=== PATIENT | female | born 1955 | race Caucasian/White ===

== ENCOUNTER 2021-07-28 08:35 | Emergency (ER) | payer MEDICARE, MEDICAID, SELFPAY ==
[2021-07-28 08:50] VITALS: BP 119/84; PULSE 94; RESP 18; TEMP 36.7; O2SAT 98
--- NOTE | 2021-07-28 08:59 | HMH.EDGENADL ---
ED Disposition Clinical Impression: COVID-19 virus infection Disposition: Home, Self-Care Condition on Discharge: Fair Instructions: DI for COVID-19 (Suspected or Confirmed ) Additional Instructions: Monoclonal antibody therapy order has been placed. You will be called to schedule an appointment time. Tylenol for pain or fever. [id number] cough medication. Rest and drink plenty of fluids. COVID-19 Isolation: Isolate yourself for a MINIMUM of 10 days from onset of symptoms: What to do: Monitor your symptoms. If you have an emergency warning sign (including trouble breathing), seek emergency medical care immediately. Stay in a separate room from other household members, if possible. Use a separate bathroom, if possible. Avoid contact with other members of the household and pets. Don?t share personal household items, like cups, towels, and utensils. Wear a mask when around other people if able. You can be around others AFTER: 10 days since symptoms first appeared AND 24 hours with no fever without the use of fever-reducing medications AND Other symptoms of COVID-19 are improving Referrals: Mikki Kraus [Primary Care Provider] - - Critical Care Critical Care Time: No Attestation: On , the high probability of a clinically significant, sudden or life threatening deterioration of the following system(s) required my full and direct attention, intervention and personal management. The time I documented below is in addition to time spent performing reported procedures but includes the following listed in this critical care notation. Medical Decision Making - Ayad Inquiry Pt receiving controlled substance: No Vital Signs: 07/28/21 08:50 Temperature 98.1 F Temperature Source Oral Pulse Rate [Right Radial] 94 H Respiratory Rate 18 Blood Pressure [Right Arm] 119/84 Blood Pressure Mean [Right Arm] 95 Blood Pressure Source [Right Arm] Automatic Cuff Blood Pressure Position [Right Arm] Sitting 02 Sat by Pulse Oximetry 98 Oxygen Delivery Method Room Air - Lab Data Lab Results 07/28/21 08:40: SARS-CoV-2 (PCR) Detected A, Influenza A Untype (PCR) Not detected, Influenza Type B (PCR) Not detected Orders (Tests/Meds): ORDERS Category Date Time Status Chest XR 2 view (NOT portable) [XR chest 2V] Stat Exams 07/28/21 09:07 Taken - Radiology Data #1 Image(s): Chest Image Reviewed: Yes I reviewed the patient's radiology image Preliminary Findings: Abnormal (Haziness right base) General Adult HPI - General Stated complaint: covid, treated for symptoms Time Seen by Provider: 07/28/21 08:59 - History of Present Illness HPI narrative: States she has felt ill since Friday 6 days ago. She has weakness, body aches, cough, congestion, nausea. She called her primary care doctor earlier in the week and was called in an antibiotic and a Medrol Dosepak. She did a home Covid test last night and it was positive. A relative who is a nurse told her she should come in and see if our test is positive as well. She has a history of hypertension and hyperlipidemia, allergies and depression. She is a non-smoker and does not have COPD. - Related Data Allergies Allergy/AdvReac Type Severity Reaction Status Date / Time Sulfa (Sulfonamide Allergy Verified 07/28/21 08:58 Antibiotics) [facility] History - Hepatitis A Screen Attestation statement:: This patient has been screened for Hepatitis A risk factors. I have reviewed the patient's past medical history: Yes ROS Obtained: Yes Systems reviewed as appropriate & no additional complaints - Constitutional Constitutional: Reports fatigue, Denies fever(s) - Cardiovascular Cardiovascular: Denies chest pain - Respiratory Respiratory: Reports chest congestion, Reports cough, Denies dyspnea - Gastrointestinal Gastrointestingal: Reports: nausea. Denies: abdominal pain Physical Exam - General General appearan
[2021-07-28 09:06] LABS: Influenza A, PCR Not Detected (NotDetected); Influenza B, PCR Not Detected (NotDetected)
--- NOTE | 2021-07-28 09:07 | XR_ITS ---
PROCEDURE INFORMATION: Exam: XR Chest Exam date and time: 07/28/2021 9:07 AM Age: 66 years old Clinical indication: Cough; Additional info: Possible covid TECHNIQUE: Imaging protocol: XR of the chest. Views: 2 views. COMPARISON: No relevant prior exams. FINDINGS: Lungs: Unremarkable. No consolidation. Pleural spaces: Unremarkable. No pleural effusion. No pneumothorax. Heart/Mediastinum: Unremarkable. No cardiomegaly. Bones/joints: Unremarkable. IMPRESSION: No acute cardiopulmonary disease.
[2021-07-28 09:28] LABS: Coronavirus 19, PCR Detected (NotDetected)
[2021-07-28 09:44] VITALS: BP 121/83; PULSE 91; RESP 18; TEMP 36.7; O2SAT 97
== END 2021-07-28 09:47 | disposition home or self-care (01) ==
PROVIDERS: Emergency Provider Emergency Medicine; PCP Nurse Practitioner Family
DX: U07.1 COVID-19 (principal); I10 Essential (primary) hypertension; E78.5 Hyperlipidemia, unspecified; F33.1 Major depressive disorder, recurrent, moderate
CPT/HCPCS: 71046; 99282; C9803; U0003; U0005

== ENCOUNTER 2021-07-30 07:24 | Outpatient (CLI) | payer MEDICARE, MEDICAID, SELFPAY ==
[2021-07-30] VITALS (8 sets, daily range): BP systolic 119–151; BP diastolic 74–84; PULSE 53–78; RESP 18; TEMP 36.2–36.4; O2SAT 96–99
== END 2021-07-30 11:30 | disposition home or self-care (01) ==
LOC: COVID.OUT 07:25
PROVIDERS: PCP Nurse Practitioner Family; Visit Provider Nurse Practitioner Family
DX: U07.1 COVID-19 (principal); Z23 Encounter for immunization
CPT/HCPCS: 96365

== ENCOUNTER 2022-11-03 08:48 | Emergency (ER) | payer MEDICARE, MEDICAID, SELFPAY ==
[2022-11-03 08:50] VITALS: BP 161/102; PULSE 87; RESP 18; TEMP 36.5; O2SAT 95; BMI 28.3
[2022-11-03 09:00] VITALS: BP 145/91; PULSE 87; O2SAT 92
--- NOTE | 2022-11-03 09:01 | HMH.EDGENADL ---
Discharge Plan Disposition Patient Disposition: Home, Self-Care Condition: Fair Referrals Follow up/Referrals: Mikki Kraus APRN [Primary Care Provider] - See instructions Activity Restrictions/Add. Instructions Additional Instructions/Restrictions: You have been diagnosed with herpangina which is caused by coxsackievirus. This can last a couple weeks. Please use the Magic mouthwash 4 times a day to help with symptoms. I also recommend your naproxen as well as cold liquids. Clinical Impressions Clinical Impression: Acute herpangina Instructions Patient Instructions: Hand, Foot, and Mouth Disease Discharge ED Provider: Zack Brown General Adult HPI General Chief complaint: PAIN Stated complaint: sore throat, left ear pain, congestion, cough Time Seen by Provider: 11/03/22 08:50 History of Present Illness HPI narrative: Patient is a 67-year-old female who presents with concern for sore throat and ear pain. She states that she has been having symptoms for almost 2 weeks now. She says that she has been evaluated numerous times and has been placed on a course of steroids, azithromycin and clindamycin after she tested positive for strep throat. She states that her symptoms or not improving and she is having worsening sore throat. She says it is painful to swallow and she feels like her ears are clogged as well. Denies any shortness of breath or chest pain. Denies any sputum production. Related Data Allergies Allergy/AdvReac Type Severity Reaction Status Date / Time Sulfa (Sulfonamide Allergy Verified 07/28/21 08:58 Antibiotics) [facility] Disclaimer: The information contained in this section may have been updated after the patient was seen, as this information can be updated by other users. Social History Smoking Status: Never smoker alcohol intake: never current occupational status: employed Travel in the last 8 weeks: None ROS Obtained: Yes All systems reviewed & no additional complaints except as documented Physical Exam General General appearance: alert and in no apparent distress Head Head exam: atraumatic, normocephalic and normal inspection Eye Eye exam: Present normal appearance and PERRL ENT ENT exam: Present mucous membranes moist and normal external ear exam Expanded ENT Exam Throat exam: Present tonsillar erythema and other (Posterior oropharynx ulcerations); Absent tonsillomegaly, tonsillar exudate, R peritonsillar mass, L peritonsillar mass or muffled voice Neck Neck exam: Present normal inspection and trachea midline Chest Chest inspection: Present normal inspection and symmetric chest wall rise Respiratory Respiratory exam: Present normal lung sounds bilaterally; Absent respiratory distress Cardiovascular Cardiovascular exam: Present regular rate and normal rhythm Abdominal Exam Abdominal exam: Present soft; Absent distention, tenderness or guarding Extremities Exam Extremities exam: Present normal inspection; Absent edema Neurological Exam Neurological exam: Present alert and oriented X3 Psychiatric Psychiatric exam: Present normal affect and normal mood Skin Skin exam: Present warm, dry, intact and normal color Medical Decision Making Medical Records Medical records reviewed: Yes I reviewed the patient's medical records. Ayad Inquiry Pt receiving controlled substance: No Vital Signs: 11/03/22 08:50 11/03/22 09:00 11/03/22 11:32 Temperature 97.7 F Temperature Source Oral Pulse Rate 87 82 Pulse Rate [Left Radial] 87 Respiratory Rate 18 16 Blood Pressure 145/91 H 173/76 H Blood Pressure [Right Arm] 161/102 H Blood Pressure Mean 110 Blood Pressure Mean [Right Arm] 121 Blood Pressure Source [Right Arm] Automatic Cuff Blood Pressure Position [Right Arm] Sitting 02 Sat by Pulse Oximetry 95 92 L 97 Oxygen Delivery Method Room Air Room Air 11/03/22 12:02 Temperature 97.9 F Temperature Source Pulse Rate 85 Pulse Rate [Lef
[2022-11-03 09:30] LABS: Basophils # 0.1 K/mm3 (0-0.2); Basophils % 1.9 % (0.1-2.0); Eosinophils # 0.4 K/mm3 (0.0-0.4); Hematocrit 44.1 % (37.0-47.0); Hemoglobin 14.3 g/dL (12.2-16.2); Lymphocytes # 1.8 K/mm3 (0.7-4.5); Lymphocytes % 26.3 % (10-50); Mean Corpuscular HGB Conc 32.5 g/dL (31.8-35.4); Mean Corpuscular Hemoglobin 31.7 pg (27.0-31.2); Mean Corpuscular Volume 97.5 fl (81-99); Mean Platelet Volume 7.2 fl (7.4-10.4); Monocytes # 0.5 K/mm3 (0.1-1.0); Monocytes % 6.7 % (1.7-9.3); Neutrophils % 59.1 % (37.0-80.0); Platelet Count 325 K/mm3 (142-424); Red Blood Count 4.53 M/mm3 (4.20-5.40); Red Cell Distribution Width 12.6 % (11.5-17.5); White Blood Count 6.8 K/mm3 (4.8-10.8)
[2022-11-03 09:37] LABS: Strep Scrn Group A (Rapid) Negative (Negative)
[2022-11-03 09:45] LABS: Chloride 102 mmol/L (98-107); Potassium 4.1 mmoL/L (3.5-5.1); Sodium 136 mmol/L (136-145)
[2022-11-03 09:48] LABS: Alanine Aminotransferase 52 U/L (12-78); Albumin Level 4.4 g/dl (3.5-5.0); Albumin/Globulin Ratio 1.4 (1.1-1.8); Alkaline Phosphatase 78 U/L (38-126); Anion Gap 11.1 mEq/L (5-15); Aspartate Amino Transferase 56 U/L (14-36); Bilirubin,Total 0.7 mg/dl (0.2-1.3); Blood Urea Nitrogen 9 mg/dl (7-17); Calcium 9.2 mg/dl (8.4-10.2); Carbon Dioxide 27 mmol/L (22.0-30.0); Creatinine Clearance Estimated 66 mL/min (50-200); Estimated Glomerular Filt Rate 100 ml/min (>60); GFR (African American) 121 ML/MIN (>60); Globulin 3.1 g/dL (1.3-3.2); Glucose 140 mg/dl (74-100); Total Protein,Serum 7.5 g/dl (6.3-8.2)
[2022-11-03 09:54] LABS: C-Reactive Protein 1.6 mg/L (0-4)
--- NOTE | 2022-11-03 10:08 | CT_ITS ---
PROCEDURE INFORMATION: Exam: CT Neck With Contrast Exam date and time: 11/03/2022 10:30 AM Age: 67 years old Clinical indication: Neck pain and other: Mastoid ear pain left; Additional info: Left neck and mastoid pain TECHNIQUE: Imaging protocol: Computed tomography of the neck with contrast. Radiation optimization: All CT scans at this facility use at least one of these dose optimization techniques: automated exposure control; mA and/or kV adjustment per patient size (includes targeted exams where dose is matched to clinical indication); or iterative reconstruction. Contrast material: ISOVUE; Contrast volume: 75 ml; Contrast route: IV; REPORTING DATA: Count of CT and Cardiac NM exams in prior 12 months: This patient has received 0 known CTs and 0 known cardiac nuclear medicine studies in the 12 months prior to the current study. COMPARISON: CR XR CHEST 2V 07/28/2021 9:04 AM FINDINGS: Paranasal sinuses: Minimal mucosal thickening left maxillary sinus and bilateral ethmoid air cells. No fluid levels. Pharynx: Unremarkable. No significant tonsillar enlargement. Larynx: Unremarkable. Epiglottis is normal. Prevertebral and retropharyngeal spaces: Unremarkable. Salivary glands: Normal. Glands are normal in size. Thyroid: Normal. No enlarged or calcified nodules. Lymph nodes: Unremarkable. No lymphadenopathy. Trachea: Visualized trachea is unremarkable. Lungs: Unremarkable as visualized. Bones/joints: Unremarkable. No acute fracture. Soft tissues: Unremarkable. No significant soft tissue swelling. IMPRESSION: No acute findings.
--- NOTE | 2022-11-03 11:30 | PC.NURSE ---
Rounded on patient, patient does not need anything at this time. Call light within reach
[2022-11-03 11:32] VITALS: BP 173/76; PULSE 82; RESP 16; O2SAT 97
[2022-11-03 12:02] VITALS: BP 140/78; PULSE 85; RESP 16; TEMP 36.6
== END 2022-11-03 12:03 | disposition home or self-care (01) ==
PROVIDERS: Emergency Provider Student in an Organized Health Care Education/Training Program; PCP Nurse Practitioner Family
DX: B08.5 Enteroviral vesicular pharyngitis (principal)
CPT/HCPCS: 70491; 80053; 85025; 86140; 87430; 96360; 99284; 99285; Q9967

== ENCOUNTER 2022-11-07 11:25 | Emergency (ER) | payer MEDICARE, MEDICAID, SELFPAY ==
[2022-11-07 11:35] VITALS: BP 159/83; PULSE 77; RESP 16; TEMP 36.6; O2SAT 97; BMI 27.8
--- NOTE | 2022-11-07 11:43 | PC.NURSE ---
Left-sided facial droop. Sensation equal/intact. Denies vision changes. No further neuro deficits.
--- NOTE | 2022-11-07 11:48 | HMH.EDGENADL ---
Discharge Plan Disposition Patient Disposition: Home, Self-Care Condition: Good Prescriptions Prescriptions: New valacyclovir [Valtrex] 1 gram tablet 1,000 mg PO Q8H 7 Days Qty: 21 0RF prednisone 20 mg tablet 60 mg PO DAILY 7 Days Qty: 21 0RF carboxymethylcellulose sodium [Lubricant Dry Eye Relief] 1 % drops, liquid gel 1 drp ophthalmic (eye) Q8H PRN (Reason: dry eye(s)) Qty: 15 0RF Referrals Follow up/Referrals: Mikki Kraus APRN [Primary Care Provider] - See instructions Clinical Impressions Clinical Impression: Left-sided Sheldon's palsy Discharge ED Provider: Blake Ricketts General Adult HPI General Chief complaint: Recheck/Abnormal Lab/Rx Stated complaint: Possible [place] palsey Time Seen by Provider: 11/07/22 11:48 Mode of Arrival: Ambulatory Source of Information: Patient Limitations: No Limitations Description of Symptoms (Recalled from ER Triage Doc. by RN): Pt presents with left-sided facial droop that she noticed when she woke up this morning. Pt states she fell asleep around 9pm last night which was last known well. Denies vision changes. Sensation equal. No further neuro deficits. Recent illness, diagnosed with bronchitis x 3 wks, progressed to sore throat and given abx, which abx discontinued Friday after being seen in [facility] with dx of Coxsackievirus. History of Present Illness HPI narrative: 67-year-old recently diagnosed with respiratory infection presents today with left-sided facial weakness. This began this morning. States that she has complete inability to close her eyes and has weakness in the left side of her face. She denies any other neurologic symptoms including changes in vision changes in coordination any weakness or sensory loss in upper EXTR or lower extremities. She denies any fevers or chills. Denies any rashes that she is aware of. No pain. Related Data Previous Rx's Medication Instructions Recorded carboxymethylcellulose sodium 1 % 1 drp ophthalmic (eye) Q8H PRN dry 11/07/22 eye liquid gel drops (Lubricant eye(s) #15 mL Dry Eye Relief) prednisone 20 mg tablet 60 mg PO DAILY 7 days #21 tabs 11/07/22 valacyclovir 1 gram tablet 1,000 mg PO Q8H 7 days #21 tabs 11/07/22 (Valtrex) Allergies Allergy/AdvReac Type Severity Reaction Status Date / Time Sulfa (Sulfonamide Allergy Verified 07/28/21 08:58 Antibiotics) [facility] Disclaimer: The information contained in this section may have been updated after the patient was seen, as this information can be updated by other users. Social History (Updated 11/03/22 @ 12:12 by Zack Brown MD) Smoking Status: Former smoker alcohol intake: never current occupational status: employed Travel in the last 8 weeks: None ROS Obtained: Yes All systems reviewed & no additional complaints except as documented Physical Exam General General appearance: alert Respiratory Respiratory exam: Absent respiratory distress Cardiovascular Cardiovascular exam: Present regular rate; Absent tachycardia Neurological Exam Neurological exam: Present alert, oriented X3 and CN II-XII intact (Complete peripheral cranial nerve VII deficit with complete inability to close the left eye no central sparing of the left forehead weakness of the left facial muscles as well remainder of cranial nerve exam is normal bilateral upper and lower extremity motor and sensory exam is normal coordination ) Medical Decision Making Ayad Inquiry Pt receiving controlled substance: No Vital Signs: 11/07/22 11:35 11/07/22 12:06 Temperature 97.8 F 97.8 F Temperature Source Oral Oral Pulse Rate 77 Pulse Rate [Right] 77 Respiratory Rate 16 18 Blood Pressure 167/92 H Blood Pressure [Right Arm] 159/83 H Blood Pressure Mean [Right Arm] 108 02 Sat by Pulse Oximetry 97 Oxygen Delivery Method Room Air Room Air Medical Decision Narrative: 67-year-old with complete left-sided facial paralysis consistent with Sheldon's palsy.
[2022-11-07 12:06] VITALS: BP 167/92; PULSE 77; RESP 18; TEMP 36.6; O2SAT 98
== END 2022-11-07 12:31 | disposition home or self-care (01) ==
PROVIDERS: Emergency Provider Student in an Organized Health Care Education/Training Program; PCP Nurse Practitioner Family
DX: G51.0 Bell's palsy (principal)
CPT/HCPCS: 99283; 99284

== ENCOUNTER → 2022-12-19 08:04 | Outpatient (CLI) | payer MEDICARE, MEDICAID, SELFPAY ==
--- NOTE | 2022-12-19 08:23 | MR_ITS ---
FINAL REPORT CLINICAL HISTORY: Sheldon s palsy, acute left hearing loss, headache. history shingles in left ear with hearing loss x2 weeks ago. dizziness FINDINGS: Multiplanar MR imaging of the brain was performed without and with contrast. There is mild age-appropriate atrophy. Scattered foci of increased T2 signal are seen in the cerebral white matter that have a nonspecific appearance but likely represent moderate chronic ischemic/gliotic changes. There is no evidence of intracranial hemorrhage or mass. No abnormal ventricular dilatation is identified. There is no evidence of shift of the midline structures. No abnormal extra-axial fluid collection is seen. No area of abnormal restricted diffusion is identified. The posterior fossa and brainstem have an unremarkable appearance. No abnormal contrast enhancement is seen. Normal major vessel vascular flow voids are seen. There is mucosal thickening present in multiple sinuses. IMPRESSION: Moderate atrophy and chronic ischemic/gliotic changes. No acute intracranial abnormality. Sinusitis as above. Reviewed, Interpreted and Dictated by Rosalino Butts III, MD Transcribed by Christine Jim Authenticated and [facility]
[2022-12-19 08:34] LABS: Blood Urea Nitrogen 8 mg/dl (7-17); Estimated Glomerular Filt Rate 83 ml/min (>60); GFR (African American) 101 ML/MIN (>60)
--- NOTE | 2022-12-26 12:29 | PC.NURSE ---
I have been unable to talk with patient about HST but have left voicemails on her phone.
== END ==
PROVIDERS: PCP Nurse Practitioner Family; Visit Provider Specialist
DX: H81.22 Vestibular neuronitis, left ear (principal); H91.92 Unspecified hearing loss, left ear
CPT/HCPCS: 36415; 70553; 82565; 84520; A9576

== ENCOUNTER 2025-01-12 10:27 | Outpatient (CLI) | payer MEDICARE, SELFPAY ==
--- NOTE | 2025-01-12 | CA_ITS ---
APPROVED REPORT Exam: Pharmacologic Technologist: Carol Ford Ht: 5 ft 4 in Wt: 178 lbs BSA: 1.86 m2 HR: 62 bpm BP: 158/90 mmHg Stress Test Details Test: Lexiscan HR Resting HR: 62 bpm Max Heart Rate (APMHR): 150.116950 bpm Max HR Achieved: 95 bpm Target HR (85% APMHR): 127.936204 bpm % of APMHR: 63.33 BP Resting BP: 158.0/90.0 mmHg Max BP: 158.0/90.0 mmHg Recovery BP: 155.0/70.0 mmHg ECG Resting ECG: Sinus rhythm. No ischemia or ectopy. Stress ECG Conclusion Symptoms: nausea Arrhythmias/Ectopy: None Lexiscan ST-T Changes: None Electronically signed by : Edna Cooney MD 01/13/2025 14:19:02
--- OUTSIDE RECORDS SUMMARY | 2025-01-12 10:33 | XMS_ITS | Data Portability ---
Author Organization [place] - [facility] ADMIN Address [address] [place] [id number] Care Team Providers Care Logistical Engineer Name Role Phone ORLIN JIMÉNEZ Referring Provider Assessment No assessment recorded. Plan of Treatment Reminders Order Date Submit Date Provider Last Modified By Organization Details Last Modified Time Details Appointments None recorded. Lab None recorded. Referral None recorded. Procedures None recorded. Surgeries colonoscop y (SURG) 2024 025 [email or web address] [facility] (Outpatient Surgery)[address], [place], [address], 5 14:22:12 Imaging None recorded. Medication Orders diclofenac sodium 75 mg tablet,del ayed release 2024 [email or web address], [address], 5 07:05:47 Kenalog 10 mg/mL suspension for injection 2024 025 [email or web address] Not available 15:32:45 bupivacain e HCl 0.5 % (5 mg/mL) injection solution 2024 025 [email or web address] Not available 07:05:47 Patient TargetsNo targets recorded. Patient Instructions Encounter Date Encounter Id Patient Instructions Last Modified By Organization Details Last Modified Time 10/20/2024 [id number] recommend repeat colonoscopy in 5 years rich Not available 10/20/2024 14:58:21 Patient seen by physician health information assistant. I have reviewed the patient's medical record, the medical decision making and treatment plan. [email or web address] Not available 10/20/2024 14:58:24 Reason for Referral None Reported. Results Created Date Observation Date Name Description Value Unit Range Abnormal Flag Note LastModifiedBy Organization Detail LastModifiedTime 08/30/19 25 07/22/2024 CT, face, w/o contr ast No observ ation record ed. [email or web address] Not Available 2024 15:11:57 09/13/19 25 09/13/2024 imagi ng inter preta tion No observ ation record ed. Not Available 2024 14:34:43 10/23/19 25 10/14/2024 CT, sinus es, w/o contr ast No observ ation record ed. [email or web address] Not Available 10/2024 16:01:17 11/02/19 25 10/14/2024 CT, sinus es, w/o contr ast No observ ation record ed. [facility] [address] [place], [place], [address], 11/04/2024 14:48:22 01/11/20 25 01/06/2025 elect dorothy ortiz am, routi ne ECG, 12 leads min No observ ation record ed. [email or web address] [facility] (Lab Registration) [address] , [place], [address], 01/10/2025 10:17:46 Result Notes None recorded. Problems Name Problem SNOMED Code Status Onset Date Resolution Date Notes Provider Name and Address Organization Details Recorded Time Polyp of nasal cavity 793384493 Active 2024 MARIA ANTONIA Perez [facility] - [place] & [place] 5 08:35:36 Polyp of nasal sinus 90574118 Active 2024 MARIA ANTONIA Perez - [facility] - [place] & [place] 5 08:39:34 Benign essential hypertensio n 4827773 Active 2020 Miri Brumfield-Pit akis null, [place] - [facility] - [place] & [place] 5 14:53:58 Hearing loss 18994288 Active 2023 Miri Brumfield-Karl akis [place] - [facility] [place] & [place] 5 14:53:58 Senile osteoporosi s 69073585 Active 2020 Miri Sim akis [place] - [facility] [place] & [place] 5 14:53:58 Lateral epicondylit is 697302669 Active 2011 Miri Brumfield-Karl akis [place] - [facility] [place] & [place] 5 14:53:58 Gastroesoph ageal reflux disease 285385142 Active Miri Sim akis [place] - [facility] [place] & [place] 5 14:53:58 Pain of ear 447990629 Active 2022 Miri Sim akis [place] [facility] [place] 5 14:53:58 Depressive disorder 01000694 Active 2011 Miri Sim akis [place] [facility] [place] 5 14:53:58 Pain of multiple joints 96633352 Active 2020 Miri Sim akis [place] - [facility] [place] & [place] 5 14:53:58 Neuropathy 316559623 Active 2023 Miri Sim akis [place] - [facility] [place] & [place] 5 14:53:58 History of calculus of kidney 244934604 Active 2020 Miri Brumfield-Karl akis [place] - [facility] [place] 5 14:53:58 Posterior auricular pain 003509522 Active 2022 Miri Brumfield-Karl akis [place] - [facility] [place] & [place] 5 14:53:58 Essential hypertensio n 74609896 Active 2006 Miri Brumfield-Karl akis [place] - [facility] [place] 5 14:53:58 Prediabetes 901580739 Active 2023 Miri Brumfield-Pit akis [place] - [facility] [place] & [place] 5 14:53:58 Cyst of ovary 61271995 Active 2020 Miri Brumfield-Pit akis [place] [facility] [place] 5 14:53:58 Congestion of nasal sinus 79062527 Active 2022 Miri Brumfield-Pit akis [place] - [facility] [place] 5 14:53:58 Suspected COVID-19 851041388 Active 2020 Miri Brumfield-Pit akis [place] [facility] [place] 5 14:53:58 Kidney stone 11310149 Active 2020 Miri Brumfield-Pit akis [place] [facility] [place] 5 14:53:58 Thyroid nodule 695897824 Active 2020 Miri Brumfield-Pit akis [place] [facility] [place] 5 14:53:58 Acquired hypothyroid is 153618882 Active Rach Thomasrod null[place] - [facility] - [place] & [place] 3 10:37:47 Vitamin D deficiency 32628989 Active 2020 Miri Brumfield-Pit akis [place] [facility] [place] 5 14:53:58 Mixed hyperlipide jeff 437318793 Active 2020 Miri Brumfield-Pit akis [place] [facility] [place] 5 14:53:58 Major depressive disorder 069380486 Active 2020 Miri Brumfield-Pit akis [place] [facility] [place] 5 14:53:58 Obstructive sleep apnea syndrome 48277482 Active 2020 Miri Brumfield-Pit akis [place] [facility] [place] 5 14:53:58 Hypertensiv e disorder 02076084 Active Rach Lopez null, [place] - [facility] - [place] & [place] 3 10:39:04 Allergic rhinitis 68384238 Active 2008 Miri daniels, [place] - [facility] - [place] & [place] 5 14:53:58 Gastroesoph ageal reflux disease without esophagitis 113561353 Active 2020 Miri blair null[place] - [facility] - [place] & [place] 5 14:53:58 Plantar fasciitis 529656420 Active 2012 Miri daniels[place] - [facility] - [place] & [place] 5 14:53:58 Dizziness 884688095 Active 2022 JEROME SCHMIDT, [employer] [address] [address], [place], [address], [place] - [facility] - [place] & [place] 3 08:10:39 Sensorineur al hearing loss in left ear 5135192869709 9 Active 2022 JEROME SCHMIDT, [employer] [address],[place] [address], [place], [address], [place] - [facility] - [place] & [place] 3 08:10:43 Problem Notes None recorded. Procedures Surgical History Date Name Laterality Status Provider Name and Address Organization Details Recorded Time 10/07/19 25 screening colonoscopy completed Susie Curtis [place] - [facility] - [place] & [place] 10/20/2024 14:52:40 09/01/19 25 Nasal Endoscopy completed Karla Romo MD [address] [facility], [place], [address], [place] - [facility] - [place] & [place] 09/06/2024 11:47:52 Colonoscopy completed Donita Sanz L [facility] & [place] 09/15/2024 10:25:38 Imaging Results None recorded. Procedure Notes None recorded. Medical Equipment None Reported. Allergies Allergen ID Allergen Name Allergen Category Reaction Reaction Severity Criticality Documentation Date Start Date Code Code System Note Provider Name and Address Organization Details Recorded Time 35998 Augmentin medicatio n Not available Not available Not available 11/29/2022 95486 2 RxNorm fatig ue, zaps her Rach Lopez null, [place] - [facility] & [place] 3 10:35:53 09786 Keflex medicatio n Not available Not available Not available 11/29/202264102 7 RxNorm Rach Thomasrod null, [place] - [facility] - [place] & [place] 3 10:35:23 57142 Substance with sulfonami de structure and antibacte rial mechanism of action (substanc e) medicatio n Not available Not available Not available 11/29/20222007 81707 8003 SNOMED Miri Brumfield-Pit akis [facility], [place] - [facility] - [place] & [place] 5 14:53:44 Medications Name Sig Start Date Stop Date Status Note LastModified by Organization Details LastModified Time maalox/diph enhydramine 12.5/5/ lidocaine 2% visc SWISH AND Spit 15ml FOUR TIMES DAILY NEEDED 09/01 completed Not Available Not Available Not Available Zocor 20 mg tablet Take 1 tablet every day by oral route as directed for 30 days. 10/08 completed Not Available Not Available Not Available cyclobenzap rine 10 mg tablet Take 1 tablet 3 times a day by oral route for 14 days. 11/29 completed Not Available Not Available Not Available amoxicillin 500 mg capsule take 1 capsule (500 mg) by oral route 3 times per day for 14 days 10/26 completed Not Available Not Available Not Available Augmentin 875 mg-125 mg tablet take 1 tablet by oral route every 12 hours for 10 days 11/09 completed Not Available Not Available Not Available promethazin e-DM 6.25 mg-15 mg/5 mL oral syrup 12/25 completed Not Available Not Available Not Available prednisone 10 mg tablet TAKE 6 TABS BY MOUTH DAILY X 2 DAYS, THEN 5 TABS DAILY X 2 DAYS, 4 TABS DAILY X 2 DAYS, 3 TABS DAILY X 2 DAYS, 2 TABS DAILY X 2 DAYS THEN 1 DAILY X 2 DAYS 09/20 completed Not Available Not Available Not Available doxycycline hyclate 100 mg capsule TAKE ONE (1) CAPSULE TWICE A DAY BY ORAL ROUTE FOR 7 DAYS. active Not Available Not Available No t Available Depo-Medrol 40 mg/mL suspension for injection 40mg IM 05/26 completed Not Available Not Available Not Available clindamycin HCl 300 mg capsule TAKE 1 CAPSULE BY MOUTH THREE TIMES DAILY FOR 10 DAYS 11/29 completed Not Available Not Available Not Available albuterol sulfate 2.5 mg/3 mL (0.083 %) solution for nebulizatio n Inhale 3 mL every day by nebulizat ion route. 2022 active Not Available Not Available Not Avai lable fexofenadin e 60 mg tablet 1 po bid 01/25 completed Not Available Not Available Not Available cetirizine 10 mg tablet TAKE 1 TABLET BY MOUTH ONCE DAILY 06/14 completed Not Available Not Available Not Available azithromyci n 250 mg tablet TAKE 2 TABLETS BY MOUTH ON DAY 1, AND THEN TAKE 1 TABLET BY MOUTH ONCE A DAY ON DAY 2 THROUGH DAY 5 08/30 completed Not Available Not Available Not Available ibuprofen 800 mg tablet as needed 11/25 completed Not Available Not Available Not Available valacyclovi r 1 gram tablet 11/22 completed Not Available Not Available Not Available clarithromy mary carmen 500 mg tablet 04/08 completed Not Available Not Available Not Available meloxicam 15 mg tablet TAKE 1 TABLET BY MOUTH ONCE DAILY FOR 30 DAYS 01/07 completed Not Available Not Available Not Available lisinopril 20 mg tablet take 1 tablet (20 mg) by oral route once daily for 90 days 08/16 completed Not Available Not Available Not Available bupivacaine HCl 0.5 % (5 mg/mL) injection solution Take 10 mg by injection route. 2024 active Not Available Not Available Not Avai lable prednisone 20 mg tablet TAKE ONE (1) TABLET TWICE A DAY BY ORAL ROUTE FOR THREE (3) DAYS. active Not Available Not Available No t Available alendronate 70 mg tablet Take 1 tablet every week by oral route. 06/14 completed Not Available Not Available Not Available prednisone 5 mg tablet TAKE ONE TABLET BY MOUTH TWICE DAILY FOR SEVEN DAYS, THEN ONE TABLET BY MOUTH ONCE DAILY FOR SEVEN DAYS. 08/30 completed Not Available Not Available Not Available hydroxyzine pamoate 50 mg capsule take 1 capsule (50 mg) by oral route q hs 06/03 completed Not Available Not Available Not Available Nexium 40 mg capsule,del ayed release take 1 capsule by oral route daily for 30 days 12/14 completed Not Available Not Available Not Available meclizine 12.5 mg tablet TAKE 1 TABLET BY MOUTH THREE TIMES DAILY NEEDED active Not Available Not Available No t Available Ciloxan 0.3 % eye drops instill 1 drop into affected eye(s) by ophthalmi c route every 2 hours while awake for 2 days then 1 drop every 4 hrs while awake for 5 days 01/11 completed Not Available Not Available Not Available Nasacort AQ 55 mcg nasal spray aerosol inhale 2 sprays in each nostril by intranasa l route once daily for 14 days 08/30 completed Not Available Not Available Not Available tramadol 50 mg tablet take 1 tablet (50 mg) by oral route every 6 hours as needed 10/26 completed Not Available Not Available Not Available amoxicillin 500 mg tablet take 1 tablet (500 mg) by oral route 2 times per day for 10 days 11/08 completed Not Available Not Available Not Available simvastatin 40 mg tablet TAKE 1 TABLET BY MOUTH ONCE DAILY DIRECTED active Not Available Not Available No t Available Prevacid 30 mg capsule,del ayed release take 1 capsule (30 mg) by oral route once daily before a meal for 30 days 11/17 completed Not Available Not Available Not Available levothyroxi ne 75 mcg tablet TAKE 1 TABLET BY MOUTH ONCE DAILY DIRECTED 08/08 completed Not Available Not Available Not Available Kenalog 40 mg/mL suspension for injection Take 1 mL by injection route. 09/26 completed Not Available Not Available Not Available prednisone 10 mg tablets in a dose pack Take 1 dose pk by oral route. 2024 active Not Available Not Available Not Avai lable levothyroxi ne 88 mcg tablet Take 1 tablet every day by oral route as directed for 30 days. 02/15 completed Not Available Not Available Not Available calcium 600 mg (as calcium carbonate 1,500 mg) tablet Take 1 tablet twice a day by oral route. 06/14 completed Not Available Not Available Not Available ceftriaxone 1 gram solution for injection give 1 g injection IM once 06/03 completed Not Available Not Available Not Available amoxicillin 875 mg tablet take 1 tablet (875 mg) by oral route every 12 hours for 7 days 08/08 completed Not Available Not Available Not Available Claritin-D 24 Hour 10 mg-240 mg tablet,exte nded release Take 1 tablet every day by oral route. 10/17 completed Not Available Not Available Not Available antipyrine- benzocaine 5.4 %-1.4 % ear drops instill into affected ear(s) by otic route every 2 hours as needed enough drops to fill ear canal for 7 days 08/30 completed Not Available Not Available Not Available Kenalog 10 mg/mL suspension for injection Take 20 mg by injection route. 11/08 completed Not Available Not Available Not Available Olga 180 mg tablet take 1 tablet (180 mg) by oral route once daily 09/02 completed Not Available Not Available Not Available doxycycline monohydrate 100 mg capsule Take 1 capsule twice a day by oral route. 08/18 completed Not Available Not Available Not Available levothyroxi ne 50 mcg tablet TAKE 1 TABLET BY MOUTH ONCE DAILY DIRECTED 05/24 completed Not Available Not Available Not Available cephalexin 500 mg capsule TAKE 1 CAPSULE BY MOUTH EVERY 8 HOURS UNTIL GONE 09/26 completed Not Available Not Available Not Available pantoprazol e 40 mg tablet,aruna yed release Take 1 tablet by mouth once daily active Not Available Not Available No t Available oseltamivir 75 mg capsule TAKE ONE (1) CAPSULE TWICE A DAY BY ORAL ROUTE FOR FIVE (5) DAYS. 08/30 completed Not Available Not Available Not Available levothyroxi ne 125 mcg tablet Take 1/2 (one-half ) tablet by mouth once daily active Not Available Not Available No t Available Cipro 500 mg tablet take 1 tablet (500 mg) by oral route every 12 hours for 7 days 09/21 completed Not Available Not Available Not Available clotrimazol e-betametha sone 1 %-0.05 % topical cream APPLY TO THE AFFECTED AND SURROUNDI NG AREAS OF SKIN BY TOPICAL ROUTE 2 TIMES PER DAY IN THE MORNING AND EVENING FOR 2 WEEKS 10/08 completed Not Available Not Available Not Available losartan 25 mg tablet TAKE 1 TABLET BY MOUTH EVERY DAY active Not Available Not Available No t Available ibuprofen 200 mg tablet take 2 tablets (400 mg) by oral route every 6 hours as needed with food 08/09 completed Not Available Not Available Not Available gabapentin 300 mg capsule TAKE 1 CAPSULE BY MOUTH ONCE DAILY active Not Available Not Available No t Available omeprazole 20 mg capsule,del ayed release take 1 capsule (20 mg) by oral route once daily before a meal 05/05 completed Not Available Not Available Not Available Astelin 137 mcg (0.1 %) nasal spray spray 2 sprays in each nostril by intranasa l route 2 times per day 09/02 completed Not Available Not Available Not Available diclofenac sodium 75 mg tablet,aruna yed release TAKE ONE (1) TABLET TWICE A DAY BY ORAL ROUTE FOR 30 DAYS. active Not Available Not Available No t Available amoxicillin 250 mg capsule take 1 capsule (250 mg) by oral route 3 times per day for 7 days 08/30 completed Not Available Not Available Not Available montelukast 10 mg tablet TAKE ONE TABLET BY MOUTH ONCE DAILY IN THE EVENING 06/14 completed Not Available Not Available Not Available ceftriaxone 500 mg solution for injection Take 500 mg by injection route. 10/08 completed Not Available Not Available Not Available metoprolol succinate ER 25 mg tablet,exte nded release 24 hr TAKE ONE (1) TABLET BY MOUTH ONCE DAILY active Not Available Not Available No t Available dexamethaso ne sodium phosphate 4 mg/mL injection solution Give 1ml injection IM once 06/08 completed Not Available Not Available Not Available Nasonex 50 mcg/actuati on [place] 06/03 completed Not Available Not Available Not Available lisinopril 10 mg-hydrochl orothiazide 12.5 mg tablet 1 po daily 01/25 completed Not Available Not Available Not Available polyethylen e glycol 3350 17 gram/dose oral powder MIX 17 GRAMS OF POWDER IN 8 OUNCES OF LIQUID AND DRINK ONCE DAILY active Not Available Not Available No t Available levofloxaci n 500 mg tablet TAKE 1 TABLET BY MOUTH ONCE DAILY FOR 5 DAYS 08/30 completed Not Available Not Available Not Available scopolamine 1 mg over 3 days transdermal patch APPLY ONE (1) PATCH EVERY 72 HOURS BY TRANSDERM AL ROUTE NEEDED. 01/07 completed Not Available Not Available Not Available methylpredn isolone 4 mg tablets in a dose pack TAKE 1 TABLET BY MOUTH DIRECTED WITH FOOD 10/17 completed Not Available Not Available Not Available albuterol sulfate HFA 90 mcg/actuati on aerosol inhaler Inhale 2 puffs every 4 hours by inhalatio n route. 06/14 completed Not Available Not Available Not Available Vitamin D2 1,250 mcg (50,000 unit) capsule TAKE 1 CAPSULE BY MOUTH ONCE A WEEK 09/05 completed Not Available Not Available Not Available cefdinir 300 mg capsule TAKE 1 CAPSULE BY MOUTH TWICE DAILY FOR 10 DAYS 06/14 completed Not Available Not Available Not Available dexamethaso ne sodium phosphate 10 mg/mL injection solution Take 8 mg by injection route. 12/22 completed Not Available Not Available Not Available losartan 100 mg tablet TAKE ONE TABLET BY MOUTH ONCE DAILY 12/22 completed Not Available Not Available Not Available fluticasone propionate 50 mcg/actuati on nasal spray,suspe nsion USE ONE (1) SPRAY IN EACH NOSTRIL TWICE DAILY active Not Available Not Available No t Available sertraline 50 mg tablet take 1 tablet (50 mg) by oral route once daily 09/02 completed Not Available Not Available Not Available doxycycline hyclate 100 mg tablet Take 1 tablet twice a day by oral route for 7 days. active Not Available Not Available No t Available Acid Safety Admin Assistant (ranitidine ) 75 mg tablet take 1 tablet (75 mg) by oral route once daily with a glass of water 11/17 completed Not Available Not Available Not Available loratadine 10 mg tablet take 1 tablet (10 mg) by oral route once daily for 30 days 06/03 completed Not Available Not Available Not Available naproxen 500 mg tablet TAKE 1 TABLET BY MOUTH TWICE DAILY NEEDED 10/05 completed Not Available Not Available Not Available AcipHex 20 mg tablet,aruna yed release take 1 tablet (20 mg) by oral route once daily swallowin g whole. Do not crush, chew and/or divide. for 30 days 09/09 completed Not Available Not Available Not Available Azmacort 100 mcg/actuati on aerosol inhaler 2 puff bid 01/25 completed Not Available Not Available Not Available cholecalcif liza (vitamin D3) 10 mcg (400 unit) capsule Take 2 capsules every day by oral route. 2019 active Not Available Not Available Not Avai lable escitalopra m 10 mg tablet TAKE 1 TABLET BY MOUTH ONCE DAILY active Not Available Not Available No t Available amoxicillin -potassium clavulanate 1,000 mg-62.5 mg tablet,ext. rel 12hr 06/03 completed Not Available Not Available Not Available Premarin 0.625 mg/gram vaginal cream Insert 0.5 g twice a week by vaginal route at bedtime. 08/09 completed Not Available Not Available Not Available nitrofurant oin monohydrate /macrocryst als 100 mg capsule TAKE 1 CAPSULE BY MOUTH EVERY 12 HOURS 05/24 completed Not Available Not Available Not Available Cymbalta 60 mg capsule,del ayed release take 1 capsule (60 mg) by oral route once daily 05/05 completed Not Available Not Available Not Available Zostavax (PF) 19,400 unit/0.65 mL subcutaneou s suspension 06/03 completed Not Available Not Available Not Available Lodrane 24 D 12 mg-90 mg capsule,ext ended release take 1 capsule by oral route once daily for 7 days 08/30 completed Not Available Not Available Not Available Xyzal 5 mg tablet Take 1 tablet every day by oral route. 06/14 completed Not Available Not Available Not Available Mucinex 1,200 mg tablet, extended release Take 1 tablet every 12 hours by oral route. 11/13 completed Not Available Not Available Not Available Adacel (Tdap Adolesn/Iftikhar lt)(PF)2 Lf-(2.5-5-3 -5)-5 Lf/0.5 mL IM syringe 06/03 completed Not Available Not Available Not Available Estroven Regular Strength 400 mcg tablet 11/14 completed Not Available Not Available Not Available Women's Daily Multivitami n 18 mg-400 mcg tablet take 1 tablet by oral route daily 12/25 completed Not Available Not Available Not Available Probiotic 20 billion cell capsule Take 1 capsule every day by oral route for 90 days. 01/07 completed Not Available Not Available Not Available Olga-D 08/30 completed Not Available Not Available Not Available guaifenesin ER 600 mg tablet, extended release 12 hr Take 1 tablet every 12 hours by oral route as needed for 10 days. 08/09 completed Not Available Not Available Not Available Fluarix Quad 1314-5918 (PF) 60 mcg (15 mcg x 4)/0.5 mL IM syringe 05/22 completed Not Available Not Available Not Available Flublok Quad (PF) 180 mcg (45 mcg x 4)/0.5 mL IM syringe PHARMACIS T ADMINISTE RED IMMUNIZAT ION ADMINISTE RED AT TIME OF DISPENSIN G 08/09 completed Not Available Not Available Not Available Fluzone High-Dose Quad (PF) 240 mcg/0.7 mL IM syringe PHARMACIS T ADMINISTE RED IMMUNIZAT ION ADMINISTE RED AT TIME OF DISPENSIN G 11/13 completed Not Available Not Available Not Available Astepro Allergy 205.5 mcg (0.15 %) nasal spray [place] 1 spray twice a day by intranasa l route. 2023 active Not Available Not Available Not Avai lable Vitals Date Recorded Body height Body mass index (BMI) Body weight Heart rate Oxygen saturation Oxygen saturation in Arterial blood by Pulse oximetry Body temperature Systolic blood pressure Diastolic blood pressure Provider Name and Address Organization Details Last Updated DateTime 5 162.56 cm 31.5 kg/m2 82716.2 8 g 71 /min 96 % 96 % 97.1 [degF] 151 mm[Hg] 72 mm[Hg] Donita EM - [facility] - [place] & [place] 11:12:15 Date Recorded Body height Body mass index (BMI) Body weight Body temperature Provider Name and Address Organization Details Last Updated DateTime 09/20/2024 162.56 cm 31.6 kg/m2 91905 g 97.4 [degF] Farrukh EM [facility] & [place] 09/20/2024 15:10:36 Date Recorded Body height Heart rate Oxygen saturation Oxygen saturation in Arterial blood by Pulse oximetry Body temperature Heart rate Respiratory rate Systolic blood pressure Diastolic blood pressure Provider Name and Address Organization Details Last Updated DateTime 162.56 cm 62 /min 93 % 93 % 98.4 [degF] 62 /min 16 /min 132 mm[Hg] 82 mm[Hg] Susie Curtis MARIA ANTONIA [facility] & [place] 14:56:53 Date Recorded Body height Body mass index (BMI) Body weight Body temperature Provider Name and Address Organization Details Last Updated DateTime 11/22/2024 162.56 cm 31.6 kg/m2 77697 g 98.2 [degF] Farrukh EM [facility] & [place] 11/22/2024 15:00:41 Social History Question Answer Notes LastModified by [employer] ion Details LastModified Time Tobacco Smoking Status Former Smoker [facility] [place] 12/04/2022 13:18:09 Do You Have An Advance Directive? No Information not available 11/29/2022 Are You Blind Or Do You Have Difficulty Seeing? No Information not available 11/29/2022 What Was The Date Of Your Most Recent Tobacco Screening? 12/04/2022 Information not available 08/30/2024 Are You Passively Exposed To Smoke? Yes Information not available 11/29/2022 Sex: Unknown Functional Status Question Answer Note LastModified by Organizat ion Details LastModified Time Do you use any illicit or recreational drugs? No Information not available 11/29/2022 What is your level of alcohol consumption? None Information not available 08/30/2024 Do you or have you ever used smokeless tobacco? Never used smokeless tobacco Information not available 08/30/2024 What is your exercise level? None Information not available 11/29/2022 Mental Status Question Answer Note LastModified by Organization D etails LastModified Time Do you feel stressed (tense, restless, nervous, or anxious, or unable to sleep at night)? [id number] Information not available 11/29/2022 Family History Relationship Description Onset Age of this Age Resolved Age Notes LastModified by Organization Details LastModified Time Father No current problems or disability [email or web address] Not available 10/28 14:18:30 Mother No current problems or disability [email or web address] Not available 10/28 14:18:30 Mother Corneal transplant [email or web address] Not available 10/28 14:18:30 Mother Type 2 diabetes mellitus [email or web address] Not available 2024 14:18:30 Mother Hypertensive disorder Not available 2022 10:43:02 Paternal Grandmother Arthritis [email or web address] Not available 10/03 14:18:30 Sister Asthma [email or web address] Not available 14:18:30 Sister Rheumatoid arthritis Not available 2022 10:40:25 Brother Bipolar disorder [email or web address] Not available 2024 14:18:30 Maternal Grandmother Malignant tumor of breast [email or web address] Not available 2024 14:18:30 Unspecified Relation Malignant tumor of colon Aunt [email or web address] Not available 2024 14:18:30 Unspecified Relation Hypercholest erolemia Not available 2022 10:42:24 Medical History Condition Response Hearing Loss Y Arthritis Y Reflux/GERD Y Sleep Disorder Y Acid Reflux (GERD) Y Back Problems Y Thyroid Problems Y Hypertension Y Depression Y Gynecological HistoryNo gynecological history recorded. Obstetrics History GPAL:G 0 P 0 0 0 0 Immunizations Vaccine Type Date Status Note Provider Nam e and Address Organization Details Recorded Time Influenza, split virus, quadrivalent, preservative 6 completed Rach Lopez [facility], [place] - [facility] - [place] & [place] 11/29/2022 10:32:33 Influenza, split virus, quadrivalent, preservative 8 completed Devora Flor null, [place] - [facility] [place] 11/08/2024 15:32:12 Influenza, split virus, quadrivalent, preservative 6 completed Dev[place] Flor [place] [facility] [place] 11/08/2024 15:32:12 Influenza, recombinant, quadrivalent, PF 9 completed Devora Flor null, [place] [facility] [place] & [place] 11/08/2024 15:32:12 Influenza, high-dose, quadrivalent, PF 0 completed Devora [place] [facility] [place] & [place] 11/08/2024 15:32:12 Influenza, high-dose, quadrivalent, PF 1 completed Devora Flor [place] [facility] & [place] 11/08/2024 15:32:12 COVID-19 vaccine, vector-nr, rS-Ad26, PF, 0.5 mL 1 completed Devora Flor null[place] [facility] & [place] 11/08/2024 15:32:12 pneumococcal polysaccharide PPV23 6 completed Devora Flor [place] [facility] & [place] 11/08/2024 15:32:12 influenza, unspecified formulation 3 completed Dev[place] [facility] & [place] 11/08/2024 15:32:12 Tdap 6 completed Devora [place] & [place] 11/08/2024 15:32:12 Tdap 7 completed Devora Flor [place] [facility] [place] & [place] 11/08/2024 15:32:12 zoster live 6 completed Dev[place] & [place] 11/08/2024 15:32:12 Influenza, split virus, quadrivalent, PF 7 completed Dev[place] & [place] 11/08/2024 15:32:12 Influenza, split virus, quadrivalent, preservative 1 completed Miri Brumfield-Karlakis [place] [facility] [place] 10/28/2024 14:54:10 Influenza, split virus, quadrivalent, preservative 9 completed Miri Simakis [place] [place] & [place] 10/28/2024 14:54:11 Influenza, high-dose, quadrivalent, PF 0 completed Miri Simakis [place] [facility] [place] 10/28/2024 14:54:11 Influenza, high-dose, quadrivalent, PF 3 completed Devorairis Pringleence null[place] [facility] [place] 11/08/2024 15:32:12 Influenza, high-dose, quadrivalent, PF 4 completed Devora Pringle[place] [facility] [place] 11/08/2024 15:32:12 COVID-19, mRNA, LNP-S, PF, 100 mcg/0.5mL dose or 50 mcg/0.25mL dose 1 completed Miri Ramirez null[place] [facility] [place] & [place] 10/28/2024 14:54:11 RSV, recombinant, protein subunit RSVpreF, adjuvant reconstituted, 0.5 mL, PF 3 completed Devora Pringleence [place] [facility] [place] & [place] 11/08/2024 15:32:12 influenza, unspecified formulation 6 completed Devora Flor [place] [facility] [place] 11/08/2024 15:32:12 influenza, unspecified formulation 9 completed Devora Flor [place] 11/08/2024 15:32:12 Novel Sxbjqqzoa-H2O9-76, all formulations 0 completed Devora Pringleence null[place] [facility] [place] & [place] 11/08/2024 15:32:12 Pneumococcal conjugate PCV 13 7 completed Devora daniels, MARIA ANTONIA - [facility] - [place] & [place] 11/08/2024 15:32:12 zoster live 6 completed Miri daniels, MARIA ANTONIA - [facility] - [place] & [place] 10/28/2024 14:54:11 Past Encounters Encounter ID Performer Location Encounter Start Date Encounter Closed Date Diagnosis/Indication Diagnosis SNOMED-CT Code Diagnosis ICD10 Code Diagnosis Note [id number] Shlomo Jaramillo MD [facility] [address] [place] [address] 10/17/2022 08:43:36 10/17/2022 09:01:05 Lumbar radiculitis [id number] M54.16 [id number] Papo Pelayo MD [address] [place] [address] [place], [place] [address] 12/04/2022 13:05:58 12/04/2022 14:07:16 Dizziness 925106851 R42 Hearing loss 98157231 H9 1.90 [id number] Papo Pelayo MD [address] [place] [id number] 01/16/2023 07:52:56 01/16/2023 14:03:43 Dizziness 112332537 R42 Asymmetric al sensorineural hearing loss 341313675 H90.5 [id number] RANDY BOYD [address] [place] [id number] 01/16/2023 07:46:51 01/16/2023 07:47:05 Sensorineural hearing loss in left ear 3195503137 9109 H90.42 Dizziness 175909898 R42 [id number] RANDY BOYD [facility] [address] [place] [address] [place] [address] 8 11/26/2023 12:39:07 11/26/2023 12:40:21 Sensorineural hearing loss in left ear [id number] 9109 H90.42 [id number] Karla Romo MD [facility] [place] [address] [address] [facility], [place] [address] 09/01/2024 10:32:20 09/01/2024 11:56:26 Polyp of nasal cavity 205895761 J33.0 Nasal congestion 3564571 0 R09.81 Loss of se nse of smell 01012791 R43.0 Chronic re current sinusitis 647227057 J32.9 [id number] MD VINCE [facility] [address] [place] [address] 8 09/15/2024 10:16:11 09/15/2024 11:38:18 Family history of cancer of colon 379771944 Z80.0 Colonoscop y. The benefits and risks of the procedure were explained to the patient. [id number] Karla Romo MD [facility] [address] [place] [place] [address] 8 09/20/2024 14:56:38 09/20/2024 15:46:27 Polyp of nasal cavity 084456050 J33.0 Nasal congestion 7473491 0 R09.81 Allergic rhinitis 238012 04 J30.9 [id number] CARLTON Mcguire [facility] [address] [place] [address] 8 10/20/2024 14:36:52 10/20/2024 14:57:03 Tubular adenomatous polyp of colon 599783672 D12.6 Diverticular disease 397 610313 K57.90 [id number] MD VINCE Miranda [facility] [address] [place] [id number] 10/28/2024 14:10:24 10/28/2024 15:25:24 Subacromial impingement 158972224 M75.41 [id number] Karla Romo MD [facility] [address] [place] [address] [place] [address] 8 11/22/2024 14:35:11 11/22/2024 15:38:23 Polyp of nasal cavity and/or nasal sinus 296198649 J33.9 Chronic bi lateral maxillary sinusitis 8146466092 4296981 J32.0 Chronic et hmoidal sinusitis 92322016 J32.2 Health Concerns Section Related Observation LastModified by Organization Detai ls LastModified Time None Recorded Concern Status LastModified by Organization Details LastModified Time None Recorded Advance Directives Directive N: Payers Insurance Date Sequence Insurance Name Policy Number Policy Marrero Covered Member ID Marrero Member ID Guarantor Name 11/19/2024 1 [place]MEDICARE [place]PLACEMENT HMO) [id number] Mary C Tuel [id number] Mary C Tuel 02/21/2024 [employer] Mary C Tuel MARY TUEL MARY TUEL Mary C Tuel 07/22/2024 2 [employer] (MEDICAID REPLACEMENT - HMO) [id number] Mary C Tuel [id number] Mary C Tuel 07/22/2024 1 [facility] (MEDICARE REPLACEMENT/ADVA NTAGE - HMO) [id number] Mary C Tuel [id number] Mary C Tuel 03/14/2020 1 [place] Mary C Tuel [id number] Mary C Tuel Notes Date Note Type Note Provider Name and Address Organization Details Recorded Time 09/15/2024 text/html Mary is a 69-year-old woman who is due for colonoscopy. Her last colonoscopy was then 2003 with findings of hyperplastic polyps. She has been constipated all her life and has tried fiber but that seems to bulky her up . She has an aunt with a history of colon cancer. Teo Pickens MD [address] [place] [address],[address], [place], [address], [place] - [place] & [place] 09/15/2024 12:00:34 09/20/2024 text/html 09/01/24-Patient is here for sinus symptoms more on the left than the right. She is having facial pain and pressure with thick nasal drainage green in color and more frequent headaches.Patient is also having ear pain. Patient has been on Amoxicillin and Prednisone. Patient has had a CT of face. Patient states he had shingles in her ear and throat about two years ago causing her to have hearing loss. She has been falling a couple times she said she can just be walking. Patient has tried Meclizine with no improvement. Patient was referred by Orlin Jiménez. 09/22/24- Mary is here to follow up regarding her nasal congestion. She took the Prednisone as prescribed and doesn't report significant improvement in her nasal congestion. Karla Romo MD [address] [place] [address], [place], [address], [facility] & [place] 09/22/2024 13:21:14 10/20/2024 text/html Nir returns today for colonoscopy follow-up which was done 10/06/2024. She has a longstanding problem with constipation and she can not tolerate fiber supplements. I recommended that she follow-up with her PCP for other therapies. Her colonoscopy showed diverticula and also polyps which pathology showed were tubular adenomas. CARLTON Mcguire [address] [place] [address],[address], [place], [address], [facility] & [place] 10/20/2024 14:58:37 10/28/2024 text/html 69 y/o female he re today for right shoulder pain x several years, worse last [address] Jaramillo in 2020 for right shoulder but did not have any treatment on it at that time. Patient has decreased painful ROM of anterior shoulder. Radiates into biceps area. Taking Ibu PRN. Patient is requesting an injection and prescription for Diclofenac 75 mg. E7AP 11.6.24 right shoulder x-rays @ --waiting for report Shlomo Jaramillo MD [address] [place] [address] Drive,[address], [place], [address], [facility] & [place] 10/29/2024 07:08:09 11/22/2024 text/html 09/01/24-Patient is here for sinus symptoms more on the left than the right. She is having facial pain and pressure with thick nasal drainage green in color and more frequent headaches.Patient is also having ear pain. Patient has been on Amoxicillin and Prednisone. Patient has had a CT of face. Patient states he had shingles in her ear and throat about two years ago causing her to have hearing loss. She has been falling a couple times she said she can just be walking. Patient has tried Meclizine with no improvement. Patient was referred by Orlin Jiménez.09/22/24- Mary is here to follow up regarding her nasal congestion. She took the Prednisone as prescribed and doesn't report significant improvement in her nasal congestion.11-22-24 - Zara is here for follow-up on her CT scan. She reports that the right side of her nose is much less congested than the left. Karla Romo MD [address] [facility], [place], [address], [facility] - [place] - [place] & [place] 11/22/2024 15:36:44 OBGyn Episode No OBEpisode recorded.
--- OUTSIDE RECORDS SUMMARY | 2025-01-12 10:34 | XMS_ITS | Data Portability ---
Author Organization [facility] Address [address] [place] [id number] Assessment No assessment recorded. Plan of Treatment Reminders Order Date Submit Date Provider Last Modified By Organization Details Last Modified Time Details Appointments Medicare AWE 40mins 2024 11:00A M Bassem Bobo, EXERCISE PHYSIOLOGY PROFESSOR Not available Not available Not available Lab drug screen, urine 2024 025 [facility], [address] [place] [address], [id number], 01/06/2025 11:23:16 CBC w/ auto diff 2024 025 [facility], [address], [address], [place], [address], 01/07/2025 10:08:08 BMP, serum or plasma 2024 025 [facility], [address], [address], [place], [address], 01/07/2025 10:08:08 rapid SARS CoV + SARS CoV 2 Ag, QL IA, respirato ry specimen 2024 025 [facility], [address] [place] [address], [id number], 12/13/2024 11:59:01 rapid strep group A, throat 2024 025 [facility], [address] [place] [address], [address], 12/13/2024 11:59:01 rapid flu (A+B) 2024 025 [facility], [address] [place] [address], [address], 12/13/2024 11:59:01 urinalysi s, dipstick 2023 024 [facility], [address] [place] [address], [address], 07/20/2024 12:11:58 TSH + free T4, serum 2023 [facility], [address], [address], [place], [address], 06/09/2024 08:12:58 lipid panel, serum 2023 024 [facility], [address], [place] [address], [place], [address], 06/09/2024 08:12:59 drug screen, urine 2023 024 [facility], [address] [place] [address], [address], 06/08/2024 14:38:00 vitamin D, 25-hydrox y, total, serum 2023 024 [facility], [address], [address], [place], [address], 06/09/2024 08:13:00 CMP, serum or plasma 2023 024 [facility], [address], [address] [address], [place], [address], 06/09/2024 08:12:59 magnesium , serum or plasma 2023 024 [facility], [address], [address] [address], [place], [address], 06/09/2024 08:13:00 vitamin B12 + folate, serum or blood 2023 024 [facility], [address], [place] [address], [place], [address], 06/09/2024 08:13:00 CBC w/ auto diff 2023 024 [facility], [address], [address] [address], [place], [address], 06/09/2024 08:12:59 iron + total iron-bind ing capacity (TIBC), serum 2023 [facility], [address], [address] [address], [place], [address], 06/09/2024 08:13:00 Referral cardiolog ist referral - abnormal ekg, needs surgery clearance 2024 025 [facility] Mane Cooney MD, [address], [place], [address], 01/06/2025 13:15:38 gastroent erologist referral 2023 024 [facility] Teo Pickens MD, [address] [place] [address] , [address], [place], [address], 11/10/2024 11:09:56 Procedures None recorded. Surgeries None recorded. Imaging electroca rdiogram 2024 025 [facility], [address] [facility], [place], [address], 01/06/2025 13:32:15 XR, chest, 2 view 2024 025 [facility], [address] [place] [address] , [place], [address], 01/11/2025 13:54:20 NM, hepatobil iary scan, w/pharm 2024 [facility], [address], [place], [address], 01/06/2025 15:33:05 electroca rdiogram 2024 025 [facility], [address] [place], [address], 12/13/2024 12:03:03 US, gallbladd er 2023 024 [facility], [address] [place] [address] , [place], [address], 08/19/2024 08:15:38 CT, face, w/o contrast 2023 024 [facility], 1928–[facility], [address] [facility], [place], [address], 07/22/2024 10:27:26 XR, foot, 3 or more view - both feet 2023 024 [facility], [address] [place] [address] , [place], [address], 06/10/2024 11:39:57 XR, shoulder, 2 or more view 2023 024 [facility], [address] [place] [address] , [place], [address], 06/10/2024 11:39:34 Medication Orders gabapenti n 300 mg capsule 2024 025 [facility], [address] [place] [address], [place], [address], 01/06/2025 11:23:24 ceftriaxo ne 1 gram solution for injection 2024 [facility] Not available 01/06/2025 10:35:58 prednison e 20 mg tablet 2024 [facility], [address] [place] [address], [address], 12/23/2024 05:01:54 doxycycli ne hyclate 100 mg capsule 2024 [facility], [address] [place] [address], [address], 12/27/2024 05:01:54 Miralax 17 gram/dose oral powder 2023 [facility], [address] [place] [address], [address], 07/20/2024 12:12:05 amoxicill in 500 mg tablet 2023 025 [facility], [address] [place] [address], [address], 12/13/2024 11:15:38 prednison e 20 mg tablet 2023 025 [facility], [address] [place] [address], [address], 12/23/2024 05:01:54 Zithromax Z-Anjum 250 mg tablet 2023 024 [facility], [address] [place] [address], [address], 01/06/2025 10:47:26 Astepro Allergy 205.5 mcg (0.15 %) nasal spray 2023 024 [facility], [address] [place] [address], [address], 06/28/2024 14:38:18 metoprolo l succinate ER 25 mg tablet,ex tended release 24 hr 2023 [facility], [address] [place], [address], 06/08/2024 13:42:36 gabapenti n 300 mg capsule 2023 [facility], [address] [place], [address], 06/08/2024 13:42:36 Patient TargetsNo targets recorded. Patient InstructionsNo instructions recorded. 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 for Screening for malignant neoplasm of colon Referring Physician: Bassem Bobo [facility], Encounter Date: 07/20/2024 Research Assistant Member Referral for El ectrocardiogram abnormal abnormal ekg, needs surgery clearance Referring Physician: Bassem Bobo [facility], Encounter Date: 01/06/2025 Results Created Date Observation Date Name Description Value Unit Range Abnormal Flag Note LastModifiedBy Organization Detail LastModifiedTime 05/10/2005/10/2024 rapid SARS CoV + SARS CoV 2 Ag, QL IA, respi rator y speci men SARS CoV antigen Negati ve Not Available [address], [address], 05/07/2024 16:02:51 05/10/20 24 05/10/2024 rapid strep group A, throa t Strep negati ve Not Available [address], [address], 05/07/2024 16:02:36 05/10/20 24 05/10/2024 rapid strep group A, throa t Culture No Not Available [address], [address], 05/07/2024 16:02:36 10/0705/10/2024 rapid flu (A+B) Flu negati ve Not Available [address], [address], 05/07/2024 16:02:59 05/10/20 24 05/10/2024 rapid flu (A+B) Type Both A & B Not Available [address], [address], 05/07/2024 16:02:59 06/08/20 24 06/09/2024 TSH+F REE T4 TSH 2.150 uIU/m L 0.450- 4.500 normal Not Available [facility] ([facility]) [address] [place], [address], 06/09/2024 08:12:58 06/08/2006/09/2024 TSH+F REE T4 T4,free(dire ct) 1.05 NG/dL 0.82-1 .77 normal Not Available [facility] ([facility]) [address] [place], [address], 06/09/2024 08:12:58 06/08/20 24 06/09/2024 CBC WITH DIFFE RENTI AL/PL ATELE T WBC 5.6 x10e3 /uL 3.4-10 .8 normal Not Available [facility] ([facility]) [address] [place], [address], 06/09/2024 08:12:58 06/08/20 24 06/09/2024 CBC WITH DIFFE RENTI AL/PL ATELE T RBC 4.17 x10e6 /uL 3.77-5 .28 normal Not Available [facility] ([facility]) [address] [place] [address], [address], 06/09/2024 08:12:58 06/08/20 24 06/09/2024 CBC WITH DIFFE RENTI AL/PL ATELE T hemoglobin 13.3 g/dL 11.1-1 5.9 normal Not Available [facility] ([facility]) [address] [place], [address], 06/09/2024 08:12:58 06/08/20 24 06/09/2024 CBC WITH DIFFE RENTI AL/PL ATELE T hematocrit 39.7 % 34.0-4 6.6 normal Not Available [facility] ([facility]) [address] [facility], [place], [address], 06/09/2024 08:12:58 06/08/20 24 06/09/2024 CBC WITH DIFFE RENTI AL/PL ATELE T MCV 95 fL 79-97 normal Not Available [facility] ([facility]) [address] [facility], [place], [address], 06/09/2024 08:12:58 06/08/20 24 06/09/2024 CBC WITH DIFFE RENTI AL/PL ATELE T MCH 31.9 pg 26.6-3 3.0 normal Not Available [facility] ([facility]) [address] [place], [address], 06/09/2024 08:12:58 06/08/20 24 06/09/2024 CBC WITH DIFFE RENTI AL/PL ATELE T MCHC 33.5 g/dL 31.5-3 5.7 normal Not Available [facility] ([facility]) [address] [place], [address], 06/09/2024 08:12:58 06/08/20 24 06/09/2024 CBC WITH DIFFE RENTI AL/PL ATELE T RDW 12.8 % 11.7-1 5.4 Not Available [facility] ([facility]) [address] [place], [address], 06/09/2024 08:12:58 06/08/20 24 06/09/2024 CBC WITH DIFFE RENTI AL/PL ATELE T platelets 296 x10e3 /uL 150-45 0 normal Not Available [facility] ([facility]) [address] [facility], [place], [address], 06/09/2024 08:12:58 06/08/20 24 06/09/2024 CBC WITH DIFFE RENTI AL/PL ATELE T neutrophils 42 % not estab. normal Not Available [facility] ([facility]) [address] [facility], [place], [address], 06/09/2024 08:12:58 06/08/20 24 06/09/2024 CBC WITH DIFFE RENTI AL/PL ATELE T lymphs 42 % not estab. normal Not Available [facility] ([facility]) [address] [facility], [place], [address], 06/09/2024 08:12:58 06/08/20 24 06/09/2024 CBC WITH DIFFE RENTI AL/PL ATELE T monocytes 9 % not estab. normal Not Available [facility] ([facility]) [address] [facility], [place], [address], 06/09/2024 08:12:58 06/08/20 24 06/09/2024 CBC WITH DIFFE RENTI AL/PL ATELE T eos 5 % not estab. normal Not Available [facility] ([facility]) [address] [facility], [place], [address], 06/09/2024 08:12:58 06/08/20 24 06/09/2024 CBC WITH DIFFE RENTI AL/PL ATELE T basos 1 % not estab. normal Not Available [facility] ([facility]) [address] [place], [address], 06/09/2024 08:12:58 06/08/20 24 06/09/2024 CBC WITH DIFFE RENTI AL/PL ATELE T immature cells STORAGE AND BACKUP ADMINISTRATOR Not Available [facility] ([place] [facility]) [address] [place], [address], 06/09/2024 08:12:58 06/08/20 24 06/09/2024 CBC WITH DIFFE RENTI AL/PL ATELE T neutrophils (absolute) 2.3 x10e3 /uL 1.4-7. 0 normal Not Available [facility] ([facility]) [address] [place], [address], 06/09/2024 08:12:58 06/08/20 24 06/09/2024 CBC WITH DIFFE RENTI AL/PL ATELE T lymphs (absolute) 2.4 x10e3 /uL 0.7-3. 1 normal Not Available [facility] ([facility]) [address] [place], [address], 06/09/2024 08:12:58 06/08/20 24 06/09/2024 CBC WITH DIFFE RENTI AL/PL ATELE T monocytes(ab solute) 0.5 x10e3 /uL 0.1-0. 9 normal Not Available [facility] ([facility]) [address] [place], [address], 06/09/2024 08:12:58 06/08/20 24 06/09/2024 CBC WITH DIFFE RENTI AL/PL ATELE T eos (absolute) 0.3 x10e3 /uL 0.0-0. 4 normal Not Available [facility] ([facility]) [address] [place], [address], 06/09/2024 08:12:58 06/08/20 24 06/09/2024 CBC WITH DIFFE RENTI AL/PL ATELE T baso (absolute) 0.1 x10e3 /uL 0.0-0. 2 normal Not Available [facility] ([facility]) [address] [place], [address], 06/09/2024 08:12:58 06/08/20 24 06/09/2024 CBC WITH DIFFE RENTI AL/PL ATELE T immature granulocytes 1 % not estab. Not Available [facility] ([facility]) [address] [facility], [place], [address], 06/09/2024 08:12:58 06/08/20 24 06/09/2024 CBC WITH DIFFE RENTI AL/PL ATELE T immature grans (abs) 0.0 x10e3 /uL 0.0-0. 1 Not Available [facility] ([facility]) [address] [facility], [place], [address], 06/09/2024 08:12:58 06/08/20 24 06/09/2024 CBC WITH DIFFE RENTI AL/PL ATELE T NRBC STORAGE AND BACKUP ADMINISTRATOR Not Available [facility] ([facility]) [address] [facility], [place], [address], 06/09/2024 08:12:58 06/08/20 24 06/09/2024 CBC WITH DIFFE RENTI AL/PL ATELE T hematology comments: STORAGE AND BACKUP ADMINISTRATOR Not Available [facility] ([facility]) [address] [facility], [place], [address], 06/09/2024 08:12:58 06/08/20 24 06/09/2024 COMP. METAB OLIC PANEL (14) glucose 149 mg/dL 70-99 above high normal Not Available [facility] ([facility]) [address] [facility], [place], [address], 06/09/2024 08:12:59 06/08/20 24 06/09/2024 COMP. METAB OLIC PANEL (14) BUN 12 mg/dL 8-27 normal Not Available [facility] ([facility]) [address] [place], [address], 06/09/2024 08:12:59 06/08/20 24 06/09/2024 COMP. METAB OLIC PANEL (14) creatinine 0.78 mg/dL 0.57-1 .00 normal Not Available [facility] ([facility]) [address] [facility], [place], [address], 06/09/2024 08:12:59 06/08/20 24 06/09/2024 COMP. METAB OLIC PANEL (14) eGFR 82 mL/mi n/1.7 3 >59 normal Not Available [facility] ([facility]) [address] [facility], [place], [address], 06/09/2024 08:12:59 06/08/20 24 06/09/2024 COMP. METAB OLIC PANEL (14) BUN/creatini ne ratio 15 12-28 normal Not Available [facility] ([facility]) [address] [facility], [place], [address], 06/09/2024 08:12:59 06/08/20 24 06/09/2024 COMP. METAB OLIC PANEL (14) sodium 138 mmol/ L 134-14 4 normal Not Available [facility] ([facility]) [address] [facility], [place], [address], 06/09/2024 08:12:59 06/08/20 24 06/09/2024 COMP. METAB OLIC PANEL (14) potassium 4.1 mmol/ L 3.5-5. 2 normal Not Available [facility] ([facility]) [address] [facility], [place], [address], 06/09/2024 08:12:59 06/08/20 24 06/09/2024 COMP. METAB OLIC PANEL (14) chloride 102 mmol/ L 96-106 normal Not Available [facility] ([facility]) [address] [facility], [place], [address], 06/09/2024 08:12:59 06/08/20 24 06/09/2024 COMP. METAB OLIC PANEL (14) carbon dioxide, total 23 mmol/ L 20-29 normal Not Available [facility] ([facility]) [address] [facility], [place], [address], 06/09/2024 08:12:59 06/08/20 24 06/09/2024 COMP. METAB OLIC PANEL (14) calcium 9.4 mg/dL 8.7-10 .3 normal Not Available [facility] ([facility]) [address] [place], [address], 06/09/2024 08:12:59 06/08/20 24 06/09/2024 COMP. METAB OLIC PANEL (14) protein, total 6.6 g/dL 6.0-8. 5 normal Not Available [facility] ([facility]) [address], [place], [address], 06/09/2024 08:12:59 06/08/2006/09/2024 COMP. METAB OLIC PANEL (14) albumin 4.0 g/dL 3.9-4. 9 normal Not Available [facility] ([facility]) [address] [place], [address], 06/09/2024 08:12:59 06/08/20 24 06/09/2024 COMP. METAB OLIC PANEL (14) globulin, total 2.6 g/dL 1.5-4. 5 Not Available [facility] ([facility]) [address], [place], [address], 06/09/2024 08:12:59 06/08/20 24 06/09/2024 COMP. METAB OLIC PANEL (14) bilirubin, total 0.2 mg/dL 0.0-1. 2 normal Not Available [facility] ([facility]) [address] [place], [address], 06/09/2024 08:12:59 06/08/20 24 06/09/2024 COMP. METAB OLIC PANEL (14) alkaline phosphatase 94 IU/L 44-121 normal Not Available [facility] ([facility]) [address] [place], [address], 06/09/2024 08:12:59 06/08/20 24 06/09/2024 COMP. METAB OLIC PANEL (14) AST (SGOT) 32 IU/L 0-40 normal Not Available [facility] ([place] [facility]) [address] [place], [address], 06/09/2024 08:12:59 06/08/20 24 06/09/2024 COMP. METAB OLIC PANEL (14) ALT (SGPT) 30 IU/L 0-32 normal Not Available [facility] ([place]) [address] [place], [address], 06/09/2024 08:12:59 06/08/20 24 06/09/2024 LIPID PANEL cholesterol, total 183 mg/dL 100-19 9 normal Not Available [facility] ([facility]) [address] [place], [address], 06/09/2024 08:12:59 06/08/20 24 06/09/2024 LIPID PANEL triglyceride s 275 mg/dL 0-149 above high normal Not Available [facility] ([facility]) [address] [place], [address], 06/09/2024 08:12:59 06/08/20 24 06/09/2024 LIPID PANEL HDL cholesterol 38 mg/dL >39 below low normal Not Available [facility] ([facility]) [address] [place], [address], 06/09/2024 08:12:59 06/08/20 24 06/09/2024 LIPID PANEL VLDL cholesterol tavo 47 mg/dL 5-40 above high normal Not Available [facility] ([facility]) [address] [place], [address], 06/09/2024 08:12:59 06/08/20 24 06/09/2024 LIPID PANEL LDL chol calc (nih) 98 mg/dL 0-99 Not Available [facility] ([place] [facility]) [address] [place], [address], 06/09/2024 08:12:59 06/08/20 24 06/09/2024 LIPID PANEL LDL calc comment: STORAGE AND BACKUP ADMINISTRATOR Not Available [facility] ([facility]) [address] [place], [address], 06/09/2024 08:12:59 06/08/20 24 06/09/2024 IRON AND TIBC iron bind.cap.(TI BC) 350 ug/dL 250-45 0 normal Not Available [facility] ([facility]) [address] [place], [address], 06/09/2024 08:12:59 06/08/20 24 06/09/2024 IRON AND TIBC UIBC 272 ug/dL 118-36 9 normal Not Available [facility] ([facility]) [address] [facility], [place], [address], 06/09/2024 08:12:59 06/08/20 24 06/09/2024 IRON AND TIBC iron 78 ug/dL 27-139 normal Not Available [facility] ([facility]) [address] [place], [address], 06/09/2024 08:12:59 06/08/20 24 06/09/2024 IRON AND TIBC iron saturation 22 % 15-55 normal Not Available [facility] ([facility]) [address] [place], [address], 06/09/2024 08:12:59 06/08/20 24 06/09/2024 VITAM IN B12 AND FOLAT E vitamin B12 566 pg/mL 232-12 45 normal Not Available [facility] ([facility]) [address] [place], [address], 06/09/2024 08:13:00 06/08/20 24 06/09/2024 VITAM IN B12 AND FOLAT E folate (folic acid), serum >20.0 NG/mL >3.0 A serum folat e huan ntrat ion of less than 3.1 ng/mL is consi dered to repre sent clini tavo defic iency . Not Available [facility] ([facility]) [address] [facility], [place], [address], 06/09/2024 08:13:00 06/08/20 24 06/09/2024 VITAM IN D, 25-HY DROXY vitamin D, 25-hydroxy 42.9 NG/mL 30.0-1 00.0 Vitam in D defic iency has been defin ed by the Insti tute of Medic ine and an Endoc rine Socie ty pract ice guide line as a level of serum 25-OH vitam in D less than 20 ng/mL (1,2) . The Endoc rine Socie ty went on to furth er defin e vitam in D insuf ficie ncy as a level betwe en 21 and 29 ng/mL (2). 1. IOM (Inst itute of Medic ine). 2009. Britt ry refer ence mauro es for calci um and D. Jocelyne mendez [place]: The [facility]io n[facility] . 2. Faustino mcclain MF, Maira welsh [place], Anastasia off-F errar i BHAT, et al. Evalu ation , treat ment, and preve ntion of vitam in D defic iency : an Endoc rine Socie ty clini tavo pract ice guide line. JCEM. 2010; 96(7) :1911 -30. Not Available [facility] ([facility]) [address] [facility], [place], [address], 06/09/2024 08:13:00 06/08/20 24 06/09/2024 MAGNE SIUM magnesium 2.1 mg/dL 1.6-2. 3 normal Not Available [facility] ([facility]) [address] [facility], [place], [address], 06/09/2024 08:13:00 06/08/20 24 06/08/2024 drug scree n, urine THC negati ve Not Available [address], [address], 06/08/2024 13:40:30 06/08/20 24 06/08/2024 drug scree n, urine TCA negati ve Not Available [address], [address], 06/08/2024 13:40:30 06/08/20 24 06/08/2024 drug scree n, urine BAR negati ve Not Available [address], [address], 06/08/2024 13:40:30 06/08/20 24 06/08/2024 drug scree n, urine BZO negati ve Not Available [address], [address], 06/08/2024 13:40:30 06/08/20 24 06/08/2024 drug scree n, urine MTD negati ve Not Available [address], [address], 06/08/2024 13:40:30 06/08/20 24 06/08/2024 drug scree n, urine AMP negati ve Not Available [address], [address], 06/08/2024 13:40:30 06/08/20 24 06/08/2024 drug scree n, urine MOP negati ve Not Available [address], [address], 06/08/2024 13:40:30 06/08/20 24 06/08/2024 drug scree n, urine OXY negati ve Not Available [address], [address], 06/08/2024 13:40:30 06/08/20 24 06/08/2024 drug scree n, urine MDMA negati ve Not Available [address], [address], 06/08/2024 13:40:30 06/08/20 24 06/08/2024 drug scree n, urine ZEFERINO negati ve Not Available [address], [address], 06/08/2024 13:40:30 06/08/20 24 06/08/2024 drug scree n, urine PCP negati ve Not Available [address], [address], 06/08/2024 13:40:30 06/08/20 24 06/08/2024 drug scree n, urine MET negati ve Not Available [address], [address], 06/08/2024 13:40:30 06/28/20 24 06/28/2024 HbA1c (hemo globi n A1c), blood HbA1C 6.4 % Not Available [address], [address], 06/10/2024 08:38:07 07/20/20 24 07/20/2024 urina lysis , dipst ick Leukocytes Negati ve Not Available [address], [address], 07/20/2024 09:17:46 07/20/20 24 07/20/2024 urina lysis , dipst ick Nitrite negati ve Not Available [address], [address], 07/20/2024 09:17:46 07/20/20 24 07/20/2024 urina lysis , dipst ick Urobilinogen .2 Not Available [facility] [address], [address], 07/20/2024 09:17:46 07/20/20 24 07/20/2024 urina lysis , dipst ick Protein Negati ve Not Available [address], [address], 07/20/2024 09:17:46 07/20/20 24 07/20/2024 urina lysis , dipst ick pH 5.5 Not Available [address], [address], 07/20/2024 09:17:46 07/20/20 24 07/20/2024 urina lysis , dipst ick Blood Non-He molyze d: Trace Not Available [address], [address], 07/20/2024 09:17:46 07/20/20 24 07/20/2024 urina lysis , dipst ick Specific [place] 1.025 Not Available [address], [address], 07/20/2024 09:17:46 07/20/20 24 07/20/2024 urina lysis , dipst ick Ketone Negati ve Not Available [address], [address], 07/20/2024 09:17:46 07/20/20 24 07/20/2024 urina lysis , dipst ick Bilirubin Negati ve Not Available [address], [address], 07/20/2024 09:17:46 07/20/20 24 07/20/2024 urina lysis , dipst ick Glucose Negati ve Not Available [address], [address], 07/20/2024 09:17:46 07/20/20 24 07/20/2024 urina lysis , dipst ick Appearance Cloudy Not Available [address], [address], 07/20/2024 09:17:46 07/20/20 24 07/20/2024 urina lysis , dipst ick Color Dark Yellow Not Available [address], [address], 07/20/2024 09:17:46 12/14/19 25 12/13/2024 rapid flu (A+B) Flu negati ve Not Available [address], [address], 12/13/2024 11:40:54 12/14/19 25 12/13/2024 rapid flu (A+B) Type Both A & B Not Available [address], [address], 12/13/2024 11:40:54 12/14/19 25 12/13/2024 rapid SARS CoV + SARS CoV 2 Ag, QL IA, respi rator y speci men SARS CoV antigen Negati ve Not Available [address], [address], 12/13/2024 11:40:00 12/14/19 25 12/13/2024 rapid strep group A, throa t Strep negati ve Not Available [address], [address], 12/13/2024 11:40:17 12/14/19 25 12/13/2024 rapid strep group A, throa t Culture No Not Available [address], [place], [address], 12/13/2024 11:40:17 06/10/20 24 XR, shoul shankar, 2 or more view No observ ation record ed. [address] , [place], [address], 06/10/2024 17:05:09 06/10/20 24 XR, foot, 3 or more view No observ ation record ed. [address] , [place], [address], 06/10/2024 17:05:10 06/10/20 24 XR, foot, 3 or more view No observ ation record ed. [address] , [place], [address], 06/10/2024 17:05:10 07/22/[address], face, w/o contr ast No observ ation record ed. [facility] [address] [place], [address], 08/05/2024 10:11:05 07/22/[address], face, w/o contr ast No observ ation record ed. [facility] [address] [place], [address], 08/05/2024 10:11:05 08/19/19 25 [place], bryan ahn r No observ ation record ed. [address] , [place], [address], 08/25/2024 11:40:47 10/21/[address], sinus es, w/o contr ast No observ ation record ed. [facility] [address], [place], [address], 11/01/2024 16:26:23 12/14/19 25 12/13/2024 elect rocar diogr am No observ ation record ed. [address], [address], 12/13/2024 12:03:03 01/07/20 25 01/06/2025 elect rocar diogr am No observ ation record ed. [address], [address], 01/06/2025 13:32:21 01/07/20 25 01/06/2025 elect rocar diogr am No observ ation record ed. [email or web address] [address], [address], 01/10/2025 09:30:20 01/12/20 25 XR, chest , 2 view No observ ation record ed. [email or web address] , [place], [address], 01/11/2025 18:17:24 Result Notes None recorded. Problems Name Problem SNOMED Code Status Onset Date Resolution Date Notes Provider Name and Address Organization Details Recorded Time Allergic rhinitis 82878686 Active 2008 Evelyn daniels [place] - [facility] 6 13:36:30 Depressive disorder 63022066 Active 2011 Bassem Bobo APRN [address], [place], [address], [place] - [facility] 4 08:53:31 Gastroesophage al reflux disease 246548883 Active Eugonda Fryman, EXERCISE PHYSIOLOGY PROFESSOR [address], [place], [address], [place] - [facility] 4 08:53:43 Essential hypertension 52476134 Active 2006 Bassem Bobo, EXERCISE PHYSIOLOGY PROFESSOR [address], [place], [address], [place] [facility] 4 08:53:34 Acquired hypothyroidism 890397391 Active 09/2015 Bassem Bobo, EXERCISE PHYSIOLOGY PROFESSOR [address], [place], [address], [place] [facility] 4 08:53:08 Lateral epicondylitis 760720074 Active 2011 Evelyn Nair null, [place] - [facility] 6 13:38:29 Plantar fasciitis 834854348 Active 2012 Evelyn Nair null, [place] - [facility] 6 13:38:41 Suspected COVID-19 510057290 Active 2020 Cynthia Mcgee null, [place] - [facility] 1 16:34:16 Gastroesophage al reflux disease without esophagitis 649927147 Active 2020 Bassem Bobo, EXERCISE PHYSIOLOGY PROFESSOR [address], [place], [address], [place] [facility] 4 08:54:44 Vitamin D deficiency 85566023 Active 2020 Bassem Bobo APRN [address], [place], [address], [place] [facility] 4 08:54:23 Major depressive disorder 058061034 Active 2020 Bassem Bobo, EXERCISE PHYSIOLOGY PROFESSOR [address], [place], [address], [place] [facility] 4 08:53:56 Mixed hyperlipidemia 836380481 Active 2020 Bassem Bobo, EXERCISE PHYSIOLOGY PROFESSOR [address], [place], [address], [place] [facility] 4 08:54:03 Pain of multiple joints 07762908 Active 2020 Bassem Bobo, EXERCISE PHYSIOLOGY PROFESSOR [address], [place], [address], [place] [facility] 4 08:54:05 Thyroid nodule 437436635 Active 2020 Bassem Bobo, EXERCISE PHYSIOLOGY PROFESSOR [address], [place], [address], [place] [facility] 4 08:54:28 Benign essential hypertension 8917346 Active 2020 Bassem Bobo, EXERCISE PHYSIOLOGY PROFESSOR [address], [place], [address], [place] [facility] 4 08:53:22 Obstructive sleep apnea syndrome 99429856 Active 2020 Bassem Hughesanabelxavier, EXERCISE PHYSIOLOGY PROFESSOR [address], [place], [address], [place] [facility] 4 08:54:20 Senile osteoporosis 22835674 Active 2020 Kangfantacayetano Hughestaylor, EXERCISE PHYSIOLOGY PROFESSOR [address], [place], [address], [place] [facility] 4 08:54:34 Cyst of ovary 03541398 Active 2020 Ali Peggy null, [place] - [facility] 1 22:21:36 Kidney stone 68550237 Active 2020 Ali Peggy null, [place] - [facility] 1 15:24:12 History of calculus of kidney 377987020 Active 2020 Mikki Kraus, EXERCISE PHYSIOLOGY PROFESSOR [address], [place], [address], [place] - [facility] 1 09:13:36 Congestion of nasal sinus 72105687 Active 2022 Mc Gray EXERCISE PHYSIOLOGY PROFESSOR [address], [place], [address], [place] [facility] 3 08:11:11 Pain of ear 862798870 Active 2022 Mc Gray EXERCISE PHYSIOLOGY PROFESSOR [address], [place], [address], [place] [facility] 3 10:13:38 Posterior auricular pain 711455747 Active 2022 Mc Gray, EXERCISE PHYSIOLOGY PROFESSOR [address], [place], [address], [place] - [facility] 3 10:32:46 Hearing loss 71370042 Active 2023 Samantha danielsWACO, [place] - [facility] 4 09:45:45 Prediabetes 988719311 Active 2023 Kangabhijit taylor, EXERCISE PHYSIOLOGY PROFESSOR [address], [place], [address], [facility] - [facility] 4 08:56:12 Neuropathy 645706640 Active 2023 Kangfantacayetano Hughestaylor, EXERCISE PHYSIOLOGY PROFESSOR [address], [place], [address], [facility] - [facility] 4 08:57:26 Problem Notes None recorded. Procedures Surgical History Date Name Laterality Status Provider Name and Address Organization Details Recorded Time 10/07/19 colonoscopy completed Aislinn Cummings RN [address], [place], [address], [facility] - [facility] 11/23/2024 11:41:02 11/15/19 23 Medication Reconcilliation completed Alma Rojas [facility] 11/14/2022 11:24:49 11/09/19 23 Removal of foreign body in ear canal completed Bassem Bobo APRN [address], [place], [address], [facility] - [facility] 11/08/2022 10:01:22 05/24/20 21 Advance Care Planning completed Mandie Duffy RN [address], [place], [address], [facility] - [facility] 01/02/2021 13:26:20 05/24/20 21 Functional Status Assessed completed Mandie Duffy RN [address], [place], [address], [facility] - [facility] 01/02/2021 13:25:52 05/10/20 20 Diastolic B/P greater than or equal to 90 mm Hg completed Ike Olson [facility] 05/10/2020 11:29:50 05/10/20 20 Systolic B/P greater than or equal to 140 mm Hg completed Ike Olson [facility] 05/10/2020 11:29:40 11/10/19 20 Diastolic B/P 80-89 mm Hg completed Ike Olson [place] - [facility] 11/10/2019 16:38:52 11/10/19 20 Systolic B/P greater than or equal to 140 mm Hg completed Ike Olson [place] - [facility] 11/10/2019 16:39:03 05/19/20 17 Date of Last Mammogram completed Mandie Dunaway [place] - [facility] 05/22/2017 10:20:16 12/26/19 17 Nail avulsion completed Gary Williamson [place] - [facility] 12/25/2016 18:54:35 09/27/19 16 Date of Last Pap Smear completed Evelyn Nair [place] - [facility] 05/29/2016 13:39:53 08/04/19 13 Most Recent Bone Density completed Ike Olson [place] - [facility] 06/03/2016 16:01:33 Imaging Results None recorded. Procedure Notes None recorded. Medical Equipment None Reported. Allergies Allergen ID Allergen Name Allergen Category Reaction Reaction Severity Criticality Documentation Date Start Date Code Code System Note Provider Name and Address Organization Details Recorded Time 657441 Augmentin medicatio n Not available Not available Not available 11/09/2018 55622 2 RxNorm fatig ue Ike Olson [facility], [place] - [facility] 9 13:32:16 413953 Keflex medicatio n nausea Not available low 11/26/2020 78120 7 RxNorm unkno wn Bassem Bobo, EXERCISE PHYSIOLOGY PROFESSOR [address], [place], [address] [place] - [facility] 5 11:57:38 05586 Substance with sulfonami de structure and antibacte rial mechanism of action (substanc e) medicatio n Not available Not available Not available 05/10/20162007 68856 8003 SNOMED React ion: Hives , nause a; Comme nt: Sulfo namid es; Not Available [facility] 6 09:39:39 Medications Name Sig Start Date Stop Date Status Note LastModified by Organization Details LastModified Time losartan potassium 25 mg tabs 05/10 completed Not Available Not Available Not Available metoprolo l succinate er 25 mg tb24 05/10 completed Not Available Not Available Not Available escitalop josé manuel oxalate 10 mg tabs 05/10 completed Not Available Not Available Not Available eq mucus er tab 600mg 08/09 completed Not Available Not Available Not Available simvastat in 40 mg tabs 05/10 completed Not Available Not Available Not Available maalox/di phenhydra mine 12.5/5/ lidocaine 2% visc SWISH AND Spit 15ml FOUR TIMES DAILY NEEDED 01/07 completed Not Available Not Available Not Available Zocor 20 mg tablet Take 1 tablet every day by oral route as directed for 30 days. 10/08 completed Not Available Not Available Not Available cyclobenz aprine 10 mg tablet TAKE 1 TABLET BY MOUTH THREE TIMES DAILY FOR 14 DAYS 11/08 completed Not Available Not Available Not Available amoxicill in 500 mg capsule take 1 capsule (500 mg) by oral route 3 times per day for 14 days 10/26 completed amoxicil chen 500 mg oral capsule; Recorded Status: Recorded on: 09/02/19 13 2:27PM;D iscontin ued Status: Disconti nued on: 10/27/19 13 3:09PM;U ser: [email or web address] ;Est. Completi on: 09/16/19 13;Print ed: 09/02/19 13 Not Available Not Available Not Available Augmentin 875 mg-125 mg tablet take 1 tablet by oral route every 12 hours for 10 days 11/09 completed causes fatigue Not Available Not Available Not Available promethaz ine-DM 6.25 mg-15 mg/5 mL oral syrup 12/25 completed Not Available Not Available Not Available prednison e 10 mg tablet TAKE 6 TABS BY MOUTH DAILY X 2 DAYS, THEN 5 TABS DAILY X 2 DAYS, 4 TABS DAILY X 2 DAYS, 3 TABS DAILY X 2 DAYS, 2 TABS DAILY X 2 DAYS THEN 1 DAILY X 2 DAYS 12/13 completed Not Available Not Available Not Available doxycycli ne hyclate 100 mg capsule Take 1 capsule twice a day by oral route for 7 days. 12/27 completed Not Available Not Available Not Available Depo-Medr ol 40 mg/mL suspensio n for injection 40mg IM 05/26 completed Not Available Not Available Not Available clindamyc in HCl 300 mg capsule TAKE 1 CAPSULE BY MOUTH THREE TIMES DAILY FOR 10 DAYS 11/08 completed Not Available Not Available Not Available albuterol sulfate 2.5 mg/3 mL (0.083 %) solution for nebulizat ion Inhale 3 mL every day by nebuliza tion route. 2022 active Not Available Not Available Not Avai lable fexofenad ine 60 mg tablet 1 po bid 01/25 completed fexofena dine 60 mg oral tablet;R ecorded Status: Recorded on: 05/07/20 08 10:03PM; Disconti nued Status: Disconti nued on: 01/26/20 09 3:32PM;U ser: [email or web address] Not Available Not Available Not Available cetirizin e 10 mg tablet TAKE 1 TABLET BY MOUTH ONCE DAILY 06/14 completed Not Available Not Available Not Available azithromy mary carmen 250 mg tablet TAKE 2 TABLETS TODAY THEN TAKE 1 TABLET DAILY FOR THE NEXT 4 DAYS BY MOUTH 01/06 completed Not Available Not Available Not Available ibuprofen 800 mg tablet as needed 11/25 completed Not Available Not Available Not Available valacyclo vir 1 gram tablet TAKE ONE (1) TABLET THREE (3) TIMES A DAY BY ORAL ROUTE FOR 7 DAYS. 06/03 completed Not Available Not Available Not Available clarithro mycin 500 mg tablet 04/08 completed Not Available Not Available Not Available meloxicam 15 mg tablet TAKE 1 TABLET BY MOUTH ONCE DAILY FOR 30 DAYS 01/07 completed Not Available Not Available Not Available lisinopri l 20 mg tablet take 1 tablet (20 mg) by oral route once daily for 90 days 08/16 completed lisinopr il 20 mg oral tablet;P rescribe Status: Prescrib ed on: 06/16/20 13 11:46AM; Disconti nued Status: Disconti nued on: 08/16/19 14 12:09PM; User: isreal Patton Completi on: 06/11/20 14;Indic ation: Hyperten chato - (074019 );Isa Chaparro fied: 06/16/20 13 11:46AM Not Available Not Available Not Available prednison e 20 mg tablet Take 1 tablet twice a day by oral route for 3 days. 12/23 completed Not Available Not Available Not Available alendrona te 70 mg tablet Take 1 tablet every week by oral route. 06/14 completed Not Available Not Available Not Available prednison e 5 mg tablet TAKE ONE TABLET BY MOUTH TWICE DAILY FOR SEVEN DAYS, THEN ONE TABLET BY MOUTH ONCE DAILY FOR SEVEN DAYS. 04/24 completed Not Available Not Available Not Available hydroxyzi ne pamoate 50 mg capsule take 1 capsule (50 mg) by oral route q hs 06/03 completed hydroxyz ine pamoate 50 mg oral capsule; Prescrib e Status: Prescrib ed on: 01/12/20 16 10:58AM; User: jed Romero on: Poor sleep pattern - (780.59) ;Pharmac yVerifie d: 01/12/20 16 10:58AM Not Available Not Available Not Available Nexium 40 mg capsule,d elayed release take 1 capsule by oral route daily for 30 days 12/14 completed Nexium 40 mg oral capsule, delayed release( /EC);c omment: changed to protonix ;Prescri be Status: Prescrib ed on: 11/18/19 14 3:31PM;D iscontin ued Status: Disconti nued on: 12/15/19 14 9:26AM;U ser: [email or web address]; Est. Completi on: 05/16/20 14;Indic ation: Gastroes ophageal Reflux - (09.5308 10);Phar Shankar fied: 11/18/19 14 3:31PM Not Available Not Available Not Available meclizine 12.5 mg tablet TAKE 1 TABLET BY MOUTH THREE TIMES DAILY NEEDED active Not Available Not Available No t Available Ciloxan 0.3 % eye drops instill 1 drop into affected eye(s) by ophthalm ic route every 2 hours while awake for 2 days then 1 drop every 4 hrs while awake for 5 days 01/11 completed Ciloxan 0.3 % ophthalm ic drops;Re corded Status: Recorded on: 11/17/19 16 2:24PM;D iscontin ued Status: Disconti nued on: 01/12/20 16 10:29AM; User: maile ;Est. Completi on: 11/19/19 16;Indic ation: Bacteria l Conjunct ivitis - (3723 ) Not Available Not Available Not Available Nasacort AQ 55 mcg nasal spray aerosol inhale 2 sprays in each nostril by intranas al route once daily for 14 days 08/30 completed Nasacort AQ 55 mcg nasal aerosol, spray;Re corded Status: Recorded on: 04/07/20 09 2:21PM;D iscontin ued Status: Disconti nued on: 08/30/19 10 1:16PM;U ser: [email or web address] ;Est. Completi on: 04/21/20 09 Not Available Not Available Not Available tramadol 50 mg tablet take 1 tablet (50 mg) by oral route every 6 hours as needed 10/26 completed tramadol 50 mg oral tablet;R ecorded Status: Recorded on: 02/26/20 12 3:39PM;D iscontin ued Status: Disconti nued on: 10/27/19 13 4:15PM;U ser: [email or web address] Not Available Not Available Not Available amoxicill in 500 mg tablet take 1 tablet (500 mg) by oral route 2 times per day for 10 days 12/13 completed Not Available Not Available Not Available simvastat in 40 mg tablet TAKE 1 TABLET BY MOUTH ONCE DAILY DIRECTED active Not Available Not Available No t Available Prevacid 30 mg capsule,d elayed release take 1 capsule (30 mg) by oral route once daily before a meal for 30 days 11/17 completed Prevacid 30 mg oral capsule, delayed release( DR/EC);c omment: not covered by insuranc e - must try OTC first;Pr escribe Status: Prescrib ed on: 09/09/19 14 10:23AM; Disconti nued Status: Disconti nued on: 11/18/19 14 3:09PM;U ser: [email or web address]; Est. Completi on: 03/08/20 14;Indic ation: Gastroes ophageal Reflux - (5308 );Isa Chaparro fied: 09/09/19 14 10:23AM Not Available Not Available Not Available levothyro xine 75 mcg tablet TAKE 1 TABLET BY MOUTH ONCE DAILY DIRECTED 08/08 completed Not Available Not Available Not Available Kenalog 40 mg/mL suspensio n for injection Take 1 mL by injectio n route. 09/26 completed Not Available Not Available Not Available prednison e 10 mg tablets in a dose pack TAKE BY MOUTH DIRECTED ON INSIDE OF PACKAGE active Not Available Not Available No t Available levothyro xine 88 mcg tablet Take 1 tablet every day by oral route as directed for 30 days. 02/15 completed changed to 75 mcg, hair loss Not Available Not Available Not Available calcium 600 mg (as calcium carbonate 1,500 mg) tablet Take 1 tablet twice a day by oral route. 06/14 completed Not Available Not Available Not Available ceftriaxo ne 1 gram solution for injection give 1 g injectio n IM once 01/06 completed pt states she has taken before. keflex makes is nausea Not Available Not Available Not Available amoxicill in 875 mg tablet take 1 tablet (875 mg) by oral route every 12 hours for 7 days 08/08 completed Not Available Not Available Not Available Claritin- D 24 Hour 10 mg-240 mg tablet,ex tended release Take 1 tablet every day by oral route. 10/17 completed Not Available Not Available Not Available antipyrin e-benzoca ine 5.4 %-1.4 % ear drops instill into affected ear(s) by otic route every 2 hours as needed enough drops to fill ear canal for 7 days 08/30 completed antipyri ne-benzo ike 5.4-1.4 % otic drops;Re corded Status: Recorded on: 04/07/20 09 1:56PM;D iscontin ued Status: Disconti nued on: 08/30/19 10 1:16PM;U ser: [email or web address] ;Est. Completi on: 04/14/20 09;Indic ation: Earache - (3887 00);Prin helen: 04/07/20 09 Not Available Not Available Not Available Olga 180 mg tablet take 1 tablet (180 mg) by oral route once daily 09/02 completed Olga 180 mg oral tablet;R ecorded Status: Recorded on: 11/30/19 11 2:32PM;D iscontin ued Status: Disconti nued on: 09/02/19 13 1:53PM;U ser: [email or web address] ;Printed : 11/30/19 11 Not Available Not Available Not Available doxycycli ne monohydra te 100 mg capsule Take 1 capsule twice a day by oral route. 08/18 completed Not Available Not Available Not Available levothyro xine 50 mcg tablet TAKE 1 TABLET BY MOUTH ONCE DAILY DIRECTED 05/24 completed Not Available Not Available Not Available cephalexi n 500 mg capsule TAKE 1 CAPSULE BY MOUTH EVERY 8 HOURS UNTIL GONE 09/26 completed Not Available Not Available Not Available pantopraz ole 40 mg tablet,de layed release TAKE ONE (1) TABLET BY MOUTH EVERY DAY active Not Available Not Available No t Available oseltamiv ir 75 mg capsule TAKE ONE (1) CAPSULE TWICE A DAY BY ORAL ROUTE FOR FIVE (5) DAYS. 06/13 completed Not Available Not Available Not Available levothyro xine 125 mcg tablet TAKE ONE HALF (1/2) TABLET BY MOUTH ONCE DAILY active Not Available Not Available No t Available Cipro 500 mg tablet take 1 tablet (500 mg) by oral route every 12 hours for 7 days 09/21 completed Cipro 500 mg oral tablet;c omment: pt states she couldn't take cipro;Re corded Status: Recorded on: 09/21/19 11 3:16PM;D iscontin ued Status: Disconti nued on: 09/21/19 11 3:24PM;U ser: [email or web address];Es t. Completi on: 09/28/19 11;Indic ation: Enteroco ccus Urinary Tract Infectio n - (10.5990 06);Prin helen: 09/21/19 11 Not Available Not Available Not Available clotrimaz ole-betam ethasone 1 %-0.05 % topical cream APPLY TO THE AFFECTED AND SURROUND ING AREAS OF SKIN BY TOPICAL ROUTE 2 TIMES PER DAY IN THE MORNING AND EVENING FOR 2 WEEKS 10/08 completed Not Available Not Available Not Available losartan 25 mg tablet TAKE ONE (1) TABLET BY MOUTH ONCE DAILY active Not Available Not Available No t Available ibuprofen 200 mg tablet take 2 tablets (400 mg) by oral route every 6 hours as needed with food 08/09 completed ibuprofe n 200 mg oral tablet;R ecorded Status: Recorded on: 06/16/20 13 11:01AM; User: john Caryti on: Pain - (11.3364 00) Not Available Not Available Not Available gabapenti n 300 mg capsule TAKE ONE (1) CAPSULE EVERY DAY BY ORAL ROUTE. active Not Available Not Available No t Available omeprazol e 20 mg capsule,d elayed release take 1 capsule (20 mg) by oral route once daily before a meal 05/05 completed omeprazo le 20 mg oral capsule, delayed release( /SUSANNAH);c omment: taking otc;Esvin rded Status: Recorded on: 10/27/19 13 4:15PM;D iscontin ued Status: Disconti nued on: 05/05/20 13 11:19AM; User: pedro ;Printed : 10/27/19 13 Not Available Not Available Not Available Astelin 137 mcg (0.1 %) nasal spray spray 2 sprays in each nostril by intranas al route 2 times per day 09/02 completed Astelin 137 mcg (0.1 %) nasal aerosol, spray;Re corded Status: Recorded on: 11/30/19 11 2:32PM;D iscontin ued Status: Disconti nued on: 09/02/19 13 1:53PM;U ser: [email or web address] ;Printed : 11/30/19 11 Not Available Not Available Not Available diclofena c sodium 75 mg tablet,de layed release TAKE ONE (1) TABLET TWICE A DAY BY ORAL ROUTE FOR 30 DAYS. active Not Available Not Available No t Available amoxicill in 250 mg capsule take 1 capsule (250 mg) by oral route 3 times per day for 7 days 08/30 completed amoxicil chen 250 mg oral capsule; Recorded Status: Recorded on: 04/07/20 09 2:21PM;D iscontin ued Status: Disconti nued on: 08/30/19 10 1:16PM;U ser: [email or web address] ;Est. Completi on: 04/14/20 09 Not Available Not Available Not Available monteluka st 10 mg tablet TAKE ONE TABLET BY MOUTH ONCE DAILY IN THE EVENING 06/14 completed Not Available Not Available Not Available ceftriaxo ne 500 mg solution for injection Take 500 mg by injectio n route. 10/08 completed Not Available Not Available Not Available metoprolo l succinate ER 25 mg tablet,ex tended release 24 hr TAKE ONE (1) TABLET BY MOUTH ONCE DAILY active Not Available Not Available No t Available dexametha sone sodium phosphate 4 mg/mL injection solution Give 1ml injectio n IM once 06/08 completed Not Available Not Available Not Available Nasonex 50 mcg/actua tion [place] 06/03 completed Not Available Not Available Not Available lisinopri l 10 mg-hydroc hlorothia zide 12.5 mg tablet 1 po daily 01/25 completed lisinopr il-hydro chloroth iazide 10-12.5 mg oral tablet;R ecorded Status: Recorded on: 05/07/20 08 10:02PM; Disconti nued Status: Disconti nued on: 01/26/20 09 3:32PM;U ser: [email or web address] Not Available Not Available Not Available polyethyl chevy glycol 3350 17 gram/dose oral powder MIX 17 GRAMS OF POWDER IN 8 OUNCES OF LIQUID AND DRINK ONCE DAILY active Not Available Not Available No t Available levofloxa mary carmen 500 mg tablet TAKE 1 TABLET BY MOUTH ONCE DAILY FOR 5 DAYS 09/19 completed Not Available Not Available Not Available scopolami ne 1 mg over 3 days transderm al patch APPLY ONE (1) PATCH EVERY 72 HOURS BY TRANSDER MAL ROUTE NEEDED. 01/07 completed Not Available Not Available Not Available methylpre dnisolone 4 mg tablets in a dose pack TAKE 1 TABLET BY MOUTH DIRECTED WITH FOOD 06/14 completed Not Available Not Available Not Available albuterol sulfate HFA 90 mcg/actua tion aerosol inhaler Inhale 2 puffs every 4 hours by inhalati on route. 06/14 completed Not Available Not Available Not Available Vitamin D2 1,250 mcg (50,000 unit) capsule TAKE 1 CAPSULE BY MOUTH ONCE A WEEK 09/05 completed Not Available Not Available Not Available cefdinir 300 mg capsule TAKE 1 CAPSULE BY MOUTH TWICE DAILY FOR 10 DAYS 06/14 completed Not Available Not Available Not Available dexametha sone sodium phosphate 10 mg/mL injection solution Take 8 mg by injectio n route. 12/22 completed Not Available Not Available Not Available losartan 100 mg tablet TAKE ONE TABLET BY MOUTH ONCE DAILY 12/22 completed Not Available Not Available Not Available fluticaso ne propionat e 50 mcg/actua tion nasal spray,jarocho pension USE ONE (1) SPRAY IN EACH NOSTRIL TWICE DAILY active Not Available Not Available No t Available sertralin e 50 mg tablet take 1 tablet (50 mg) by oral route once daily 09/02 completed sertrali ne 50 mg oral tablet;R ecorded Status: Recorded on: 02/26/20 12 3:24PM;D iscontin ued Status: Disconti nued on: 09/02/19 13 1:53PM;U ser: [email or web address] ;Printed : 02/26/20 12 Not Available Not Available Not Available doxycycli ne hyclate 100 mg tablet Take 1 tablet twice a day by oral route for 7 days. 12/13 completed Not Available Not Available Not Available Acid Maxillofacial Surgeon (ranitidi ne) 75 mg tablet take 1 tablet (75 mg) by oral route once daily with a glass of water 11/17 completed Acid Maxillofacial Surgeon (ranitid ine) 75 mg oral tablet;R ecorded Status: Recorded on: 05/05/20 13 11:19AM; Disconti nued Status: Disconti nued on: 11/18/19 14 3:09PM;U ser: [email or web address] Not Available Not Available Not Available loratadin e 10 mg tablet take 1 tablet (10 mg) by oral route once daily for 30 days 06/03 completed loratadi ne 10 mg oral tablet;P rescribe Status: Prescrib ed on: 01/08/20 16 11:09AM; User: [email or web address]; Est. Completi on: 07/06/20 16;Pharm acDanny ied: 01/08/20 16 11:09AM Not Available Not Available Not Available naproxen 500 mg tablet TAKE 1 TABLET BY MOUTH TWICE DAILY NEEDED 10/05 completed Not Available Not Available Not Available AcipHex 20 mg tablet,de layed release take 1 tablet (20 mg) by oral route once daily swallowi ng whole. Do not crush, chew and/or divide. for 30 days 09/09 completed Aciphex 20 mg oral tablet,d elayed release (/EC); comment: Changed to Prevacid ;Prescri be Status: Prescrib ed on: 09/01/19 14 12:55PM; Disconti nued Status: Disconti nued on: 09/09/19 14 10:23AM; User: [email or web address]; Est. Completi on: 02/29/20 14;Indic ation: Gastroes ophageal Reflux - (.5308 10);Phar Shankar fied: 09/01/19 14 12:55PM Not Available Not Available Not Available Azmacort 100 mcg/actua tion aerosol inhaler 2 puff bid 01/25 completed Azmacort 100 mcg/actu ation inhalati on aerosol; Recorded Status: Recorded on: 05/07/20 08 10:03PM; Disconti nued Status: Disconti nued on: 01/26/20 09 3:32PM;U ser: [email or web address] Not Available Not Available Not Available cholecalc iferol (vitamin D3) 10 mcg (400 unit) capsule Take 2 capsules every day by oral route. 2019 active Not Available Not Available Not Avai lable escitalop josé manuel 10 mg tablet TAKE ONE (1) TABLET BY MOUTH EVERY DAY active Not Available Not Available No t Available amoxicill in-[place] ium clavulana te 1,000 mg-62.5 mg tablet,ex t.rel 12hr 06/03 completed Not Available Not Available Not Available Premarin 0.625 mg/gram vaginal cream Insert 0.5 g twice a week by vaginal route at bedtime. 08/09 completed Not Available Not Available Not Available nitrofura ntoin monohydra te/macroc rystals 100 mg capsule TAKE 1 CAPSULE BY MOUTH EVERY 12 HOURS 05/24 completed Not Available Not Available Not Available Cymbalta 60 mg capsule,d elayed release take 1 capsule (60 mg) by oral route once daily 05/05 completed Cymbalta 60 mg oral capsule, delayed release( DR/EC);R ecorded Status: Recorded on: 10/27/19 13 4:15PM;D iscontin ued Status: Disconti nued on: 05/05/20 13 11:19AM; User: [email or web address] Not Available Not Available Not Available Olga-D 12 Hour 1 daily 05/07 completed Not Available Not Available Not Available naproxen sodium 08/16 completed naproxen sodium Oral;Rec orded Status: Recorded on: 09/02/19 13 1:53PM;D iscontin ued Status: Disconti nued on: 08/16/19 14 11:45AM; User: [email or web address];In dication : Pain - (16.7809 00) Not Available Not Available Not Available Zostavax (PF) 19,400 unit/0.65 mL subcutane ous suspensio n 06/03 completed Not Available Not Available Not Available Lodrane 24 D 12 mg-90 mg capsule,e xtended release take 1 capsule by oral route once daily for 7 days 08/30 completed Lodrane 24 D 12-90 mg oral capsule, extended release 24hr;Rec orded Status: Recorded on: 04/07/20 09 2:21PM;D iscontin ued Status: Disconti nued on: 08/30/19 10 1:16PM;U ser: [email or web address] ;Est. Completi on: 04/14/20 09 Not Available Not Available Not Available Xyzal 5 mg tablet Take 1 tablet every day by oral route. 06/14 completed Not Available Not Available Not Available Mucinex 1,200 mg tablet, extended release Take 1 tablet every 12 hours by oral route. 11/13 completed Not Available Not Available Not Available Adacel (Tdap Adolesn/A dult)(PF) 2 Lf-(2.5-5 -3-5)-5 Lf/0.5 mL IM syringe 06/03 completed Not Available Not Available Not Available Estroven Regular Strength 400 mcg tablet 11/14 completed Replaced /Retired Drug 400 mcg oral tablet;R ecorded Status: Recorded on: 11/30/19 11 1:57PM;D iscontin ued Status: Disconti nued on: 11/15/19 12 2:19PM;U ser: [email or web address] Not Available Not Available Not Available Women's Daily Multivita min 18 mg-400 mcg tablet take 1 tablet by oral route daily 12/25 completed Women's Daily Multivit craig 18-0.4 mg oral tablet;R ecorded Status: Recorded on: 01/12/20 16 10:29AM; User: [email or web address] Not Available Not Available Not Available Probiotic 20 billion cell capsule Take 1 capsule every day by oral route for 90 days. 01/07 completed Not Available Not Available Not Available Olga-D 1 tablet daily 01/07 completed Not Available Not Available Not Available guaifenes in ER 600 mg tablet, extended release 12 hr Take 1 tablet every 12 hours by oral route as needed for 10 days. 08/09 completed Not Available Not Available Not Available Fluarix Quad [id number] (PF) 60 mcg (15 mcg x 4)/0.5 mL IM syringe 05/22 completed Not Available Not Available Not Available Flublok Quad (PF) 180 mcg (45 mcg x 4)/0.5 mL IM syringe PHARMACI ST ADMINIST ERED IMMUNIZA TION ADMINIST ERED AT TIME OF DISPENSI NG 08/09 completed Not Available Not Available Not Available Fluzone High-Dose Quad (PF) 240 mcg/0.7 mL IM syringe PHARMACI ST ADMINIST ERED IMMUNIZA TION ADMINIST ERED AT TIME OF DISPENSI NG 11/13 completed Not Available Not Available Not Available Astepro Allergy 205.5 mcg (0.15 %) nasal spray Upton 1 spray twice a day by intranas al route. 2023 active Not Available Not Available Not Avai lable Vitals Date Recorded Body height Body mass index (BMI) Body weight Heart rate Oxygen saturation Oxygen saturation in Arterial blood by Pulse oximetry Respiratory rate Body temperature Systolic blood pressure Diastolic blood pressure Provider Name and Address Organization Details Last Updated DateTime 5 162.56 cm 31.3 kg/m2 86133.9 1 g 86 /min 94 % 94 % 18 /min 99.7 [degF] 142 mm[Hg] 80 mm[Hg] Alma Rojas [place] - [facility] 5 11:24:18 Date Recorded Body height Respiratory rate Body mass index (BMI) Body weight Heart rate Oxygen saturation Oxygen saturation in Arterial blood by Pulse oximetry Body temperature Systolic blood pressure Diastolic blood pressure Provider Name and Address Organization Details Last Updated DateTime 5 162.56 cm 18 /min 31.1 kg/m2 19902.2 2 g 78 /min 94 % 94 % 97.9 [degF] 140 mm[Hg] 84 mm[Hg] Samantha Dulce [place] - [facility] 5 10:45:36 Date Recorded Body height Body mass index (BMI) Body weight Provider Name and Address Organization Details Last Updated DateTime 06/08/2024 162.56 cm 30.2 kg/m2 58202.26 g Alma Rojas [place] - [facility] 06/08/2024 13:11:42 Date Recorded Body height Body mass index (BMI) Body weight Heart rate Body temperature Oxygen saturation Oxygen saturation in Arterial blood by Pulse oximetry Respiratory rate Systolic blood pressure Diastolic blood pressure Provider Name and Address Organization Details Last Updated DateTime 4 162.56 cm 30.6 kg/m2 20900.4 4 g 57 /min 98 [degF] 97 % 97 % 18 /min 144 mm[Hg] 80 mm[Hg] Alma Rojas [place] - [facility] 4 10:00:26 Date Recorded Body height Body mass index (BMI) Body weight Heart rate Oxygen saturation Oxygen saturation in Arterial blood by Pulse oximetry Respiratory rate Systolic blood pressure Diastolic blood pressure Provider Name and Address Organization Details Last Updated DateTime 4 162.56 cm 30.6 kg/m2 13114.5 4 g 77 /min 96 % 96 % 18 /min 138 mm[Hg] 84 mm[Hg] Alma Rojas [place] - [facility] 4 09:12:58 Social History Question Answer Notes LastModified by Organizat ion Details LastModified Time Tobacco Smoking Status Former Smoker Evelyn Nair [facility], [place] - [facility] 05/29/2016 13:38:48 Able To Swim? No Information not available 05/22/2023 Do You Have An Advance Directive? No Information not available 06/03/2016 Do You Wear A Helmet When Biking? No Information not available 05/22/2023 Are You Blind Or Do You Have Difficulty Seeing? No Information not available 05/22/2023 Is Blood Transfusion Acceptable In An Emergency? Yes Information not available 05/22/2017 What Is Your Level Of Caffeine Consumption? Moderate Information not available 06/03/2016 How Much Tobacco Do You Chew? None Information not available 05/22/2017 Are You Deaf Or Do You Have Serious Difficulty Hearing? No Information not available 09/03/2016 What Type Of Diet Are You Following? REGULAR Information not available 06/03/2016 Which Illicit Or Recreational Drugs Have You Used? None Information not available 06/03/2016 What Is The Highest Grade Or Level Of School You Have Completed Or The Highest Degree You Have Received? [id number] Information not available 05/22/2023 Swimming/diving No Informati on not available 05/22/2023 Have There Been Any Changes To Your Family Or Social Situation? No Information not available 01/06/2025 What Is The Fluoride Status Of Your Home? Unknown Information not available 01/06/2025 When Did You Quit Smoking? 16+yearssinc elastcigaret te Information not available 05/22/2023 Hard Of Hearing Or Deaf In One Or Both Ears? No Information not available 05/22/2023 Legally Blind In One Or Both Eyes? No Information not available 05/22/2023 Live Alone Or With Others? With Others Information not available 05/22/2023 Do You Have A Medical Power Of [employer] Teacher? No Information not available 01/06/2025 What Was The Date Of Your Most Recent Tobacco Screening? 12/13/2024 [email or web address] Information not available 12/13/2024 How Many Children Do You Have? 3 Information not available 06/03/2016 What Is Your Current Pack Years? 30ormorepack years Information not available 01/06/2025 Performs Monthly Self-breast Exam? Yes Sometimes Information not available 05/22/2023 Do You Use Protection During Sex? No Information not available 06/03/2016 What Is Your Relationship Status? Information not available 06/03/2016 Do You Use Your Seat Belt Or Car Seat Routinely? Yes Information not available 05/22/2023 Seat Belts Used Routinely Yes Information not available 05/22/2023 Are You Sexually Active? No Information not available 05/22/2023 Smoke Alarm In Home Yes Information not available 05/22/2023 Do You Have Smoke And Carbon Monoxide Detectors In Your Home? Yes Information not available 05/22/2023 At What Age Did You Start Smoking Tobacco? 17 She Thinks Around 17 Information not available 01/06/2025 Are You Passively Exposed To Smoke? No Information not available 06/03/2016 How Much Tobacco Do You Smoke? 1 PPD Information not available 01/06/2025 General Stress Level Medium Information not available 05/22/2023 Do You Use Sunscreen Routinely? No Information not available 06/03/2016 Has Tobacco Cessation Counseling Been Provided? No Information not available 05/22/2023 How Many Years Have You Smoked Tobacco? 33 Stopped Around 50 Years Old Information not available 01/06/2025 Do You Have Difficulty Walking Or Climbing Stairs? No Information not available 05/22/2023 Sex: Female Functional Status Question Answer Note LastModified by Organizat ion Details LastModified Time Do you or have you ever used smokeless tobacco? Never used smokeless tobacco Information not available 11/10/2019 Are you currently employed? Yes Information not available 06/03/2016 Do you have transportation difficulties? No Information not available 01/06/2025 Are you able to care for yourself? Yes Information n ot available 06/03/2016 Do you have difficulty dressing or bathing? No Information not available 05/22/2023 Do you or have you ever used e-cigarettes or vape? Never used electronic cigarettes Information not available 11/10/2019 What is your exercise level? None Information not available 06/03/2016 Do you use any illicit or recreational drugs? No Information not available 05/22/2023 Do you or have you ever used any other forms of tobacco or nicotine? No Information not available 01/06/2025 What is your level of alcohol consumption? None Information not available 06/03/2016 Are you able to walk? YESWOREST Information not available 05/22/2023 Do you have difficulty doing errands alone? No Information not available 05/22/2023 What is your occupation? [email or web address] Information not available 06/03/2016 Mental Status Question Answer Note LastModified by Organizat ion Details LastModified Time Do you feel stressed (tense, restless, nervous, or anxious, or unable to sleep at night)? [id number] Information not available 05/22/2023 Do you have difficulty concentrating, remembering or making decisions? No Information no t available 05/22/2023 Family History Relationship Description Onset Age of this Age Resolved Age Notes LastModified by Organization Details LastModified Time Paternal Grandmother Arthritis [email or web address] Not available 1 13:40:32 Sister Asthma [email or web address] Not available 05/29/2016 13:40:43 Sister Rheumatoid arthritis [email or web address] Not available 2022 11:56:42 Brother Bipolar disorder [email or web address] Not available 2022 11:56:42 Maternal Grandmother Malignant tumor of breast [email or web address] Not available 05/29 13:41:05 Unspecified Relation Malignant tumor of colon Aunt [email or web address] Not available 05/29 13:41:24 Unspecified Relation Hypercholest erolemia [email or web address] Not available 05/29 13:42:45 Mother Corneal transplant [email or web address] Not available 11/20 11:56:42 Mother Diabetes mellitus Type II [email or web address] Not available 05/29/2016 13:42:32 Mother Hypertensive disorder [email or web address] Not available 05/29 13:43:05 Medical History Condition Response Kidney Stones Y Depression Y Hypothyroidism Y Arthritis Y Allergies/Hayfever Y Ear or Hearing Problems Y Thyroid Problems Y Hypertension Y Gynecological History Statement/Question Response Abnormal Pap N Date of Last Mammogram 05/19/2017 Date of LMP 08/03/2015 STIs/STDs N HPV Vaccine N Current Control Method None Last Annual Exam/Provider 09/27/15 w/DT Date of Last Colonoscopy Most Recent Bone Density 08/04/2012 Sexually Active? N Menses Monthly N Date of Last Pap Smear 09/27/2015 Sexual Problems? N LMP Approximate Hormone Replacement Therapy N Obstetrics History GPAL:G 3 P 3 0 0 3 Type Value Full Term 3 Living 3 Total 3 Immunizations Vaccine Type Date Status Note Provider Name and Address Organization Details Recorded Time Tdap 017 completed Not Available [facility] 08/21/2019 03:54:34 Pneumococcal conjugate PCV 13 007 completed Samantha Stears null, [place] - [facility] 09/19/2023 11:45:02 influenza, unspecified formulation 009 completed Samantha Stears null, [place] - [facility] 09/19/2023 11:45:02 influenza, unspecified formulation 013 completed Not Available [facility] 09/04/2019 02:21:29 influenza, unspecified formulation 016 completed Samantha Stears [place], [place] - [facility] 09/19/2023 11:45:02 Novel [id number], all formulations 010 completed Samantha Stears null, [place] - [facility] 09/19/2023 11:45:02 Influenza, split virus, quadrivalent, preservative 016 completed Not Available [facility] 08/21/2019 03:54:18 Influenza, high-dose, quadrivalent, PF 023 completed Ike Olson null, [place] - [facility] 05/08/2023 11:45:58 pneumococcal polysaccharide PPV23 016 completed Not Available [facility] 09/04/2019 02:21:58 zoster live 016 completed Samantha Stears null, [place] - [facility] 09/19/2023 11:45:02 Influenza, high-dose, quadrivalent, PF completed Alma Crystal null, [place] - [facility] 06/08/2024 14:56:51 Influenza, split virus, quadrivalent, preservative completed Samantha Stears null, [place] - [facility] 09/19/2023 11:45:01 Influenza, split virus, quadrivalent, preservative 018 completed Not Available [facility] 08/21/2019 03:55:14 Influenza, high-dose, quadrivalent, PF 020 completed Samantha Stears null, [place] - [facility] 09/19/2023 11:45:01 Influenza, split virus, quadrivalent, preservative completed Samantha Stears null, [place] - [facility] 09/19/2023 11:45:01 COVID-19, mRNA, LNP-S, PF, 100 mcg/0.5mL dose or 50 mcg/0.25mL dose completed Samantha Stears null, [facility] 09/19/2023 11:45:01 Influenza, split virus, quadrivalent, preservative 016 completed Alma Crystal null, [place] - [facility] 10/17/2022 15:07:01 Influenza, recombinant, quadrivalent, PF 019 completed Alma Crystal null, [place] - [facility] 10/17/2022 15:07:01 Influenza, high-dose, quadrivalent, PF completed Alma Crystal null, [place] - [facility] 10/17/2022 15:07:01 Influenza, high-dose, quadrivalent, PF 021 completed Alma Crystal null, [place] - [facility] 10/17/2022 15:07:01 COVID-19 vaccine, vector-nr, rS-Ad26, PF, 0.5 mL completed Alma Crystal null, [place] - [facility] 10/17/2022 15:07:01 Tdap completed Alma Crystal null, [place] - [facility] 10/17/2022 15:07:01 zoster live 016 completed Alma Crystal null, [place] - [facility] 10/17/2022 15:07:01 Influenza, split virus, quadrivalent, PF 017 completed Alma Crystaljammie daniels, [place] - [facility] 10/17/2022 15:07:01 Influenza, split virus, quadrivalent, PF 019 cancelled patient objection Not Available [facility] 08/21/2019 03:56:06 RSV, recombinant, protein subunit RSVpreF, adjuvant reconstituted, 0.5 mL, PF 023 completed Samantharoman العراقي null, [place] - [facility] 09/19/2023 11:45:01 Past Encounters Encounter ID Performer Location Encounter Start Date Encounter Closed Date Diagnosis/Indication Diagnosis SNOMED-CT Code Diagnosis ICD10 Code Diagnosis Note [id number] [facility] [address] [place] [address] 11/07/2011 00:00:00 [id number] [facility] [address] [place] [address] 11/15/2011 00:00:[id number] [facility] [address] [place] [address] 02/26/2012 00:00:[id number] [facility] [address] [place] [address] 09/02/2012 00:00:[id number] [facility] [address] [place] [address] 10/26/2012 00:00:[id number] [facility] [address] [place] [address] 06/08/2007 00:00:[id number] [facility] [address] [place] [address] 07/20/2007 00:00:[id number] [facility] [address] [place] [address] 01/25/2009 00:00:[id number] [facility] [address] [place] [address] 04/07/2009 00:00:[id number] [facility] [address] [place] [address] 08/30/2009 00:00:[id number] [facility] [address] [place] [address] 11/10/2009 00:00:[id number] [facility] [address] [place] [address] 05/05/2013 00:00:[id number] [facility] [address] [place] [address] 06/16/2013 00:00:[id number] [facility] [address] [place] [address] 06/25/2013 00:00:[id number] [facility] [address] [place] [address] 08/16/2013 00:00:[id number] [facility] [address] [place] [address] 09/01/2013 00:00:[id number] [facility] [address] [place] [address] 11/17/2013 00:00:[id number] [facility] [address] [place] [address] 12/22/2013 00:00:[id number] [facility] [address] [place] [address] 02/02/2014 00:00:[id number] [facility] [address] [place] [address] 08/22/2014 00:00:[id number] [facility] [address] [place] [address] 09/05/2014 00:00:[id number] [facility] [address] [place] [address] 01/17/2015 00:00:[id number] [facility] [address] [place] [address] 02/20/2015 00:00:[id number] [facility] [address] [place] [address] 09/06/2015 00:00:[id number] [facility] [address] [place] [address] 09/27/2015 00:00:[id number] [facility] [address] [place] [address] 10/24/2015 00:00:[id number] [facility] [address] [place] [address] 11/17/2015 00:00:[id number] [facility] [address] [place] [address] 01/12/2016 00:00:[id number] [facility] [address] [place] [address] 03/06/2016 00:00:[id number] [facility] [address] [place] [address] 02/23/2007 00:00:[id number] [facility] [address] [place] [address] 03/09/2007 00:00:[id number] [facility] [address] [place] [address] 05/11/2007 00:00:[id number] [facility] [address] [place] [address] 12/25/2009 00:00:[id number] [facility] [address] [place] [address] 03/29/2010 00:00:[id number] [facility] [address] [place] [address] 09/21/2010 00:00:[id number] [facility] [address] [place] [address] 11/29/2010 00:00:[id number] [facility] [address] [place] [address] 07/22/2011 00:00:[id number] [facility] [address] [place] [address] 10/21/2011 00:00:00 [id number] Mikki Kraus APR[address] [place] [address] 06/03/2016 15:39:29 06/03/2016 16:40:05 Acquired hypothyroidism 834287599 E03.9 Influenza vaccine needed 5395758318 106 Z23 Body mass index 25-29 - overweight 665291837 Z68.28 Vitamin D deficiency 347 57495 E55.9 Mixed hyperlipidemia 267 188175 E78.2 Pain of mu ltiple joints 43011068 M25.50 [id number] Mikki Kraus APRN [address] [place] [address] 09/03/2016 09:45:14 09/03/2016 11:10:26 Acquired hypothyroidism 697922633 E03.9 Body mass index 25-29 - overweight 955031941 Z68.28 Vitamin D deficiency 347 92920 E55.9 Mixed hyperlipidemia 267 574977 E78.2 Pain of mu ltiple joints 86325775 M25.50 Pain in right knee 55641 51158 91924 M25.561 Pain in both feet 241933 1768 4443165 M79.671 M79.577 [id number] Paul Coto MD [address] [place] [address] 10/08/2016 08:58:43 10/08/2016 09:37:38 Pruritic rash 08153256 L28.2 [id number] Gary Williamson DO [address] [place] [address] 12/25/2016 09:04:44 12/25/2016 10:31:26 Acquired hypothyroidism 835585931 E03.9 Vitamin D deficiency 347 35299 E55.9 Gastroesop hageal reflux disease without esophagitis 203940521 K21.9 Essential hypertension 05929965 I10 Major depr essive disorder 281708311 F32.9 Seasonal a llergic rhinitis 821006499 J30.2 Onychia of toe 769449510 L03.950 [id number] Mikki Kraus APRN [address] [place] [address] 04/08/2017 11:53:51 04/08/2017 13:32:43 Acquired hypothyroidism 228749815 E03.9 Administra tion of diphtheria, pertussis, and tetanus vaccine 210916620 Z23 Body mass index 25-29 - overweight 730484478 Z68.28 Vitamin D deficiency 347 65929 E55.9 Mixed hyperlipidemia 267 479177 E78.2 Pain of mu ltiple joints 48797754 M25.50 Abnormal urine odor 8769 003 R82.90 Fatigue 98767792 R53.83 Screening for malignant neoplasm of breast 941293193 Z12.31 Screening for malignant neoplasm of colon 541129443 Z12.11 Screening for malignant neoplasm of cervix 419215044 Z12.4 Seasonal a llergic rhinitis 561368056 J30.2 Thyroid nodule 950470442 E04.1 [id number] RAD[place] [facility] [address] [place] [address] [place] [address] 05/22/2017 09:57:57 05/22/2017 11:00:53 Routine gynecologic examination done 7290504965 9101 Z01.419 Depression screening 171 181846 Z13.89 Hypertensi on screening 479278248 Z13.6 Diet education 27312535 Z71.3 Encourage healthy eating/dec reased fats, sugars, fried foods Counseling 492362241 Z71 .9 Encouraged regular exercise 30-40min/d ay 4-5 days/wk Body mass index 30+ - obesity 576950752 Z68.30 Chronic ma xillary sinusitis 38070637 J32.0 Atrophic vaginitis 04983 000 N95.2 Sample PVC provided with instructio shira for 0.5g twice weekly @ [id number] Renetta Jara APRN [address] [place] [address] 09/02/2017 09:05:39 09/02/2017 10:10:24 Cough 59508275 R05 Acute bronchitis 8369450 2 J20.9 [id number] Renetta Jara [address] [place] [address] 09/09/2017 11:11:49 09/09/2017 11:46:09 Otalgia 71691651 H92.02 [id number] Mikki Kraus [address] [place] [address] 10/08/2017 09:46:49 10/08/2017 11:00:15 Acquired hypothyroidism 209781757 E03.9 Gastroesop hageal reflux disease without esophagitis 796624292 K21.9 Vitamin D deficiency 347 34412 E55.9 Major depr essive disorder 959465330 F32.9 Mixed hyperlipidemia 267 345991 E78.2 Pain of mu ltiple joints 05213906 M25.50 Seasonal a llergic rhinitis 693278814 J30.2 Thyroid nodule 130361564 E04.1 Body mass index 30+ - obesity 048095323 Z68.39 Renewal of prescription 376333405 Z76.0 [id number] Walter Coot [address] [place] [address] 12/23/2017 08:20:12 12/23/2017 09:15:28 Acute upper respiratory infection 86402323 J06.9 [id number] Walter Coto [address] [place] [address] 04/30/2018 16:28:05 04/30/2018 17:27:58 Upper respiratory infection 10054058 J06.9 [id number] Mikki Kraus [address] [place] [address] 05/06/2018 16:27:57 05/06/2018 17:21:25 Acquired hypothyroidism 372398884 E03.9 Seasonal a llergic rhinitis 491855354 J30.2 Gastroesop hageal reflux disease without esophagitis 185523457 K21.9 Vitamin D deficiency 347 41423 E55.9 Major depr essive disorder 806048813 F32.9 Mixed hyperlipidemia 267 338500 E78.2 Pain of mu ltiple joints 13357953 M25.50 Thyroid nodule 017546296 E04.1 Renewal of prescription 787146019 Z76.0 Benign ess ential hypertension 9855811 I10 Body mass index 25-29 - overweight 198115582 Z68.29 Administra tion of influenza vaccine 53752981 Z23 Obstructiv e sleep apnea syndrome 30027016 G47.33 [id number] Rosalia Pruitt MD [address] [place] [address] 05/26/2018 08:53:53 05/26/2018 09:53:11 Acute sinusitis 69383466 J01.90 [id number] Mikki Kraus APRN [address] [place] [address] 11/04/2018 10:44:49 11/04/2018 11:49:08 Acquired hypothyroidism 314521683 E03.9 Pain in throat 168847809 R07.0 Seasonal a llergic rhinitis 067344852 J30.2 Gastroesop hageal reflux disease without esophagitis 697188120 K21.9 Vitamin D deficiency 347 38450 E55.9 Major depr essive disorder 566112574 F32.9 Mixed hyperlipidemia 267 122336 E78.2 Pain of mu ltiple joints 92857433 M25.50 Thyroid nodule 517624389 E04.1 Benign ess ential hypertension 1642006 I10 Obstructiv e sleep apnea syndrome 60514315 G47.33 Body mass index 30+ - obesity 251881092 Z68.31 Screening for malignant neoplasm of colon 667004257 Z12.11 Acute bronchitis 9887281 2 J20.9 [id number] Paul Coto MD [address] [place] [address] 12/22/2018 09:16:42 12/22/2018 10:01:31 Dysuria 27223544 R30.0 Urinary tr act infectious disease 53104783 N39.0 Pain in bi lateral legs 4979654803 8213613 M79.025 [id number] Mikki Kraus APRN [address] [place] [address] 05/05/2019 10:48:19 05/05/2019 12:43:07 Acquired hypothyroidism 820508720 E03.9 Administra tion of influenza vaccine 37576950 Z23 Gastroesop hageal reflux disease without esophagitis 375021724 K21.9 Vitamin D deficiency 347 89400 E55.9 Major depr essive disorder 135320168 F32.9 Mixed hyperlipidemia 267 511290 E78.2 Pain of mu ltiple joints 87723801 M25.50 Thyroid nodule 965702326 E04.1 Benign ess ential hypertension 0739856 I10 Obstructiv e sleep apnea syndrome 76136716 G47.33 Body mass index 30+ - obesity 669667866 Z68.31 Vitamin B1 2 deficiency (non anemic) 63079458 E53.8 Acute bronchitis 2265616 2 J20.9 [id number] Van Woods MD [address] [place] [address] 08/09/2019 13:14:48 08/09/2019 14:30:25 Cough 32790420 R05 Rapid flu negative Chest wall pain 66321917 6 R07.89 See above for plan under chest pain. Acute sinusitis 10291062 J01.90 Discussed saline nasal irrigation . Use Flonase and take antibiotic s Doxycyclin e. See us or go to the Er should get worse or develop new symptoms. Follow up with us in a week. Chest pain 91826066 R07. 9 Sudden onset after she rolled over in bed and heard a pop with associated localized tenderness over left lower chest wall. Pain sounds like musculoske letal in nature. She already takes NSAID and that helps with pain. We could not do an EKG in office. I recommende d she should go to hospital emergency department (ER) right now for further evaluation and management . I offered transfer to ER via ambulance but patient declined that. Follow up with us after hospital discharge. [id number] Van Woods MD [address] [place] [address] 08/18/2019 09:12:09 08/18/2019 10:48:15 Cough 92620319 R05 Pt has symptoms suggestive of sinusitis and bronchitis . Discussed saline nasal irrigation . Use Flonase and take antibiotic s Cefdinir as prescribed . Take Mucinex and Ventolin as prescribed . See us or go to the Er should get worse or develop new symptoms. Follow up in 5 days. Chest pain 10498216 R07. 9 Chest pain would localize to left lower ribs underneath left breast. We are unable to get EKG in office. I recommende d she should get EKG at hospital as soon as possible today and also labs (Troponin I; stat ordered). No known allergies to contrast or dye. Will also get CTA to rule out PE, andaortic disease. Endocrine/ metabolic screening 753951118 Z13.228 A1c is 5.7 Rib pain 954441257 R07.8 1 Pt has CXR and XR of ribs- unremarkab le. Pt understand s the risk of radiation exposure from CT scan. She has asked a few times now to order a CT chest for her to see if she has a rib fracture. Will get CT chest. Hypertensive disorder 38 684498 I10 Continue Metoprolol . Added Losartan. Recommende d to reduce dietary sodium intake to less than 100 mEq (2.3 g of sodium or 6 g of sodium chloride)/ day. Discussed weight loss, DASH diet and exercise programGet fasting labs in our clinic as soon as possibleFo llow up on HTN in 2 weeks. Screening for malignant neoplasm of breast 276118879 Z12.39 Get mammogram. Prediabetes 704747626 R7 3.03 Take a diabetic diet, exercise and loose weight. Get a repeat A1c in 3 months Liver enzy mes outside reference range 659314344 R94.5 Recent labs in May 2019 had shown high ALT and AST. Get labs and US liver [id number] Mikki Kraus APRN [facility] [address] [facility] [place] [address] 11/10/2019 16:18:29 11/10/2019 16:57:04 Acquired hypothyroidism 270178341 E03.9 Gastroesop hageal reflux disease without esophagitis 073054725 K21.9 Vitamin D deficiency 347 10456 E55.9 Major depr essive disorder 480023523 F32.9 Mixed hyperlipidemia 267 841852 E78.2 Pain of mu ltiple joints 47492612 M25.50 Thyroid nodule 266270067 E04.1 Benign ess ential hypertension 7194924 I10 Obstructiv e sleep apnea syndrome 03154572 G47.33 Body mass index 30+ - obesity 164973616 Z68.30 Vitamin B1 2 deficiency (non anemic) 36856367 E53.8 Senile osteoporosis 1804 0001 M81.0 [id number] Mikki Kraus [address] [place] [address] 05/10/2020 11:04:15 05/10/2020 12:07:35 Acquired hypothyroidism 726583118 E03.9 Gastroesop hageal reflux disease without esophagitis 910831179 K21.9 Vitamin D deficiency 347 14072 E55.9 Major depr essive disorder 337842345 F32.9 Mixed hyperlipidemia 267 935877 E78.2 Pain of mu ltiple joints 25849994 M25.50 Thyroid nodule 456352758 E04.1 Benign ess ential hypertension 7178355 I10 Obstructiv e sleep apnea syndrome 86654239 G47.33 Body mass index 30+ - obesity 079936518 Z68.30 Vitamin B1 2 deficiency (non anemic) 34965805 E53.8 Senile osteoporosis 1804 0001 M81.0 Screening for malignant neoplasm of colon 572086150 Z12.11 Neck pain 55495228 M54.2 [id number] Mikki Kraus [address] [place] [address] 11/13/2020 09:47:09 11/13/2020 11:26:53 Acquired hypothyroidism 940217300 E03.9 Gastroesop hageal reflux disease without esophagitis 520215337 K21.9 Vitamin D deficiency 347 96262 E55.9 Major depr essive disorder 414694011 F32.9 Mixed hyperlipidemia 267 809713 E78.2 Pain of mu ltiple joints 65891066 M25.50 Thyroid nodule 350012690 E04.1 Benign ess ential hypertension 0861639 I10 Obstructiv e sleep apnea syndrome 73095739 G47.33 Body mass index 30+ - obesity 485299010 Z68.32 Vitamin B1 2 deficiency (non anemic) 78925187 E53.8 Senile osteoporosis 1804 0001 M81.0 Screening for malignant neoplasm of colon 834759175 Z12.11 [id number] Rosalia Pruitt MD [address] [place] [address] 09/26/2020 16:05:47 09/26/2020 18:26:42 Acute sinusitis 40993167 J01.90 [id number] Van Woods MD [address] [place] [address] 11/21/2020 14:27:29 11/21/2020 15:25:27 Increased frequency of urination 305892145 R35.0 Acute cystitis. Take Macrobid as prescribed . Follow urine culture and labs. See us back or go to an (ER) right away should gets worse or develops any new symptoms or complaints . Follow up with us in about 2 to 3 days. I also discussed with her that UA showed blood and that she should get a repeat Urinalysis in 1 to 2 weeks and see us for same. Blood in urine 56167662 R31.9 See above. Will also check KUB, renal bladder US Diabetes m ellitus screening 015283294 Z13.1 Proteinuria 20689122 R80 .9 [id number] Mikki Kraus APRN [address] [place] [address] 05/24/2021 10:40:36 05/24/2021 11:59:10 Adult health examination 658864765 Z00.00 Depression screening 171 312896 Z13.89 Examinatio n of blood pressure 412567374 Z01.30 Diet education 77093802 Z71.3 Counseling 889039031 Z71 .82 Exercise counseling . Patient encouraged to exercise 30 minutes 5 days a week. At [facility] risk for falls 920364386 Z91.81 STEADI FAST screening score of _3____. Advance care planning 71 7861245 Z71.89 Acquired hypothyroidism 410813546 E03.9 Gastroesop hageal reflux disease without esophagitis 189645624 K21.9 Vitamin D deficiency 347 53288 E55.9 Major depr essive disorder 256876787 F32.9 Mixed hyperlipidemia 267 321064 E78.2 Thyroid nodule 382789691 E04.1 Benign ess ential hypertension 0257647 I10 Obstructiv e sleep apnea syndrome 30518069 G47.33 Body mass index 30+ - obesity 317359444 Z68.30 Vitamin B1 2 deficiency (non anemic) 61977948 E53.8 Senile osteoporosis 1804 0001 M81.0 History of calculus of kidney 298034164 Z87.442 Acute urin leon tract infection 392121519 N39.0 Screening for malignant neoplasm of breast 657822776 Z12.31 Pneumococc al vaccination declined 848748196 Z28.21 Abnormal urine odor 8769 003 R82.90 Screening for malignant neoplasm of colon 480264660 Z12.11 [id number] Maite Abdullahi APRN [address] [place] [address] 08/08/2021 12:43:19 08/08/2021 13:55:00 Ear pressure sensation 011174930 H93.8X9 Cough 54009550 R05.9 Nasal congestion 2499181 0 R09.81 Fatigue 61805325 R53.83 History of SARS-CoV-2 29 47998303 54692799 Z86.16 Viral screening 73565761 4 Z11.52 [id number] Bassem Bobo APRN [address] [address] 06/14/2022 15:15:00 06/14/2022 17:02:17 Acute maxillary sinusitis 58098024 J01.00 Patient likely has an acute bacterial sinusitis. Will treat as below. Supportive care reviewed: raising HOB, humidifier use, saline nasal spray, rest, encourage PO fluids and monitor hydration status, infection control measures. Recommende d acetaminop hen/ibupro fen PRN pain, fever Follow-up as needed Seasonal allergy 4251402 04 J30.2 start after finishing antibiotic [id number] Bassem Bobo APRN [address] [address] 10/17/2022 14:56:35 10/17/2022 15:37:37 Acute maxillary sinusitis 35358246 J01.00 raising HOB, humidifier use, saline nasal spray, rest, encourage PO fluids and monitor hydration status, infection control measures.R ecommended acetaminop hen/ibupro fen PRN pain, feverFollo w-up as needed Acute bronchitis 8333275 2 J20.9 pt states she can take rocephin and zpak with meds [id number] Bassem Bobo [address] [address] 11/08/2022 09:13:19 11/08/2022 10:16:57 [place]yle palsy of left side of face 1144548829 4262487 G51.0 contiune meds as orderedret urn to work 11/16/22 Lesion of ear canal 3001 66054 H61.840 [id number] Bassem Bobo [address] [address] 11/14/2022 11:07:07 11/14/2022 11:44:58 Argyle palsy of left side of face 2232443387 6666141 G51.0 continue meds as orderedret urn to work 12/07/22 [id number] Mikki Kraus [address] [place] [address] 11/20/2022 11:56:35 11/20/2022 12:37:00 Acquired hypothyroidism 345486919 E03.9 Gastroesop hageal reflux disease without esophagitis 781575740 K21.9 Vitamin D deficiency 347 76338 E55.9 Major depr essive disorder 688942946 F32.9 Mixed hyperlipidemia 267 818477 E78.2 Thyroid nodule 525074476 E04.1 Benign ess ential hypertension 3093017 I10 Obstructiv e sleep apnea syndrome 83095051 G47.33 Vitamin B1 2 deficiency (non anemic) 74708227 E53.8 Senile osteoporosis 1804 0001 M81.0 History of calculus of kidney 960147587 Z87.442 Body mass index 25-29 - overweight 548273091 Z68.28 Herpes zoster 3598206 B0 2.9 Argyle pals y of left side of face 1850696547 1120229 G51.0 Motion sickness 36734063 T75.3XXA [id number] Mc Gray APRN [address] [address] 04/24/2023 09:50:16 04/24/2023 10:42:37 Congestion of nasal sinus 62593224 R09.81 J01.90 Patient likely has an acute bacterial sinusitis. Will treat as below.No signs of preseptal or orbital cellulitis , meningismu s, or neurologic changes concerning for intracrani al process. Instructed family to monitor patient closely and call office for any of these symptoms.S upportive care reviewed: raising HOB, humidifier use, saline nasal spray, rest, encourage PO fluids and monitor hydration status, infection control measures.R ecommended acetaminop hen/ibupro fen PRN pain, fever; reviewed appropriat e doses.Foll ow-up as below. Major depr essive disorder 240231131 F32.9 -patient reports depression is well controlled with medication -denies recent major depressive episodes, suicidal/h omicidal Ideation-r efill for escitalopr am sent-follo w up in 3 months with PCP or sooner for worsening of conditions Posterior auricular pain 601680871 H92.01 -reports left posterior auricular pain with ear fullness for years-revi ewed MRI of brain from 12/2022 in which no abnormalit ies of the ear were noted but there was no documentat ion concerning the auricles so do not know if they were addressed at all-benign physical exam-CT to rule out abnormalit y of left ear and sinuses [id number] Mikki Kraus APRN [address] [place] [address] 05/08/2023 11:35:44 05/08/2023 11:56:09 Influenza vaccine needed 3283324027 106 Z23 [id number] Bassem Bobo APRN [address] [address] 06/03/2023 13:12:33 06/03/2023 14:17:44 Hypothyroidism 58584397 E03.9 Influenza caused by Influenza A virus 007319948 J09.X2 no sign of a bacterial infection. likely viral. viruses can take 7-14 days to run their course.evens al saline and bulb syringe to remove nasal drainage to help with congestion .monitor temp. Tylenol or Motrin as needed for pain or fever.enco urage fluids, water, Gatorade, power aide, Pedialyte if infant/tod dler/child warm salt water gargleswar m fluidssore throat lozengessl eep elevatedhu midifier/v aporizerfo llow up immediatel y for new or worsening symptoms or no noticeable improvemen t over the next 48-72 hours02 sat up to 93% after breathing treatment Wheezing 16334812 R06.2 [id number] Bassem Bobo [address] [address] 06/13/2023 15:19:06 06/13/2023 15:54:45 Acute urinary tract infection 566031640 N39.0 increase fluids, discussed with pt to go to ed if symptoms worsen [id number] Bassem Bobo [employer] [address] [address] 09/19/2023 11:32:52 09/19/2023 12:18:40 Acute maxillary sinusitis 41408884 J01.00 raising HOB, humidifier use, saline nasal spray, rest, encourage PO fluids and monitor hydration status, infection control measures.R ecommended acetaminop hen/ibupro fen PRN pain, feverFollo w-up as needed [id number] Bassem Bobo [address] [address] 10/06/2023 09:32:38 10/06/2023 10:32:36 COVID-19 259931048 U07.1 may return to work friday10/10/23no sign of a bacterial infection. likely viral. viruses can take 7-14 days to run their course.evens al saline and bulb syringe to remove nasal drainage to help with congestion .monitor temp. 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 [address] [address] 01/08/2024 08:16:44 01/08/2024 09:07:42 Long-term current use of drug therapy 256069261 Z79.899 Sore throat 757688657 J0 2.9 Acquired hypothyroidism 698095794 E03.9 Benign ess ential hypertension 3458316 I10 Depressive disorder 3548 9007 F32.A Mixed hyperlipidemia 267 448459 E78.2 Pain of mu ltiple joints 93330145 M25.50 Vitamin D deficiency 347 39511 E55.9 Prediabetes 178815192 R7 3.03 Neuropathy 007292295 G62 .9 Pt compliant with plan of Karen reviewedme dication compliance discussedL ast uds:01/08/24 Control substance agreement on file Pharyngitis 008719885 J0 2.9 [id number] Bassem Bobo [address] [address] 05/07/2024 15:36:24 05/07/2024 16:38:02 Acute upper respiratory infection 54781129 J06.9 no sign of a bacterial infection. likely viral. viruses can take 7-14 days to run their course. nasal saline and bulb syringe to remove nasal drainage to help with congestion . monitor temp. Tylenol or Motrin as needed for pain or fever. encourage fluids, water, Gatorade, power aide, Pedialyte if infant/tod dler/child warm salt water gargles warm fluids sore throat lozenges sleep elevated humidifier /vaporizer follow up immediatel y for new or worsening symptoms or no noticeable improvemen t over the next 48-72 hours [id number] Bassem Hughestaylor [address] [address] 06/08/2024 12:55:19 06/08/2024 14:04:26 Essential hypertension 68626367 I10 labs Neuropathy 635665447 G62 .9 Pt compliant with plan of careKasper reviewedme dication compliance discussedL ast uds: 4Control substance agreement on file Bilateral cramp of muscle of lower limbs 0342929069 9191416 R25.2 labs Mixed hyperlipidemia 267 559834 E78.2 labs Vitamin D deficiency 347 39695 E55.9 labs Long-term current use of drug therapy 751182606 Z79.899 Acquired hypothyroidism 328178848 E03.9 labs Active or passive immunization 845871540 Z23 Pain in both feet 939783 2180 7940279 M79.671 pt declines referral to podiatry at this time Pain of ri ght shoulder joint 3613270012 3402720 M25.511 xray- [place] [id number] Bassem Hughestaylor [address] [address] 06/28/2024 09:33:31 06/28/2024 10:31:37 Acute maxillary sinusitis 77659464 J01.00 raising HOB, humidifier use, saline nasal spray, rest, encourage PO fluids and monitor hydration status, infection control measures.R ecommended acetaminop hen/ibupro fen PRN pain, feverFollo w-up as neededafte r ct will refer to ent Pain in face 75050248 R5 1.9 Headache 89948132 R51.9 Dizziness 364138828 R42 [id number] [facility] [address] 07/20/2024 08:59:33 07/20/2024 09:40:36 Abdominal pain 47689701 R10.9 if symptoms do not improve or worsen go to ed for eval Dizzy spells 423970053 R 42 Constipation 27379056 K5 9.00 1 bottle of mag citrate then start miralaxif symptoms do not improve or worsen go to ed for eval Acute maxi llary sinusitis 94572503 J01.00 raising HOB, humidifier use, saline nasal spray, rest, encourage PO fluids and monitor hydration status, infection control measures.R ecommended acetaminop hen/ibupro fen PRN pain, feverFollo w-up as neededafte r ct will refer to ent if needed Screening for malignant neoplasm of colon 417739384 Z12.11 [id number] [facility] [address] [address] 12/13/2024 11:09:04 12/13/2024 12:02:57 Preoperative procedure 090230353 Z01.818 Body mass index 30+ - obesity 449580199 E66.9 31.3 Acute maxi llary sinusitis 84616701 J01.00 raising HOB, humidifier use, saline nasal spray, rest, encourage PO fluids and monitor hydration status, infection control measures.R ecommended acetaminop hen/ibupro fen PRN pain, feverFollo w-up as needed [id number] Bassem Bobo [address] [address] 01/06/2025 10:06:17 01/06/2025 11:31:56 Preoperative state 27290668 Z01.818 will need surgery clearance from cardiology also- pt report no cardiac hx Neuropathy 566757161 G62 .9 Pt compliant with plan of Karen reviewedme dication compliance discussedL ast uds:01/06/25 Control substance agreement on file Long-term current use of drug therapy 000857258 Z79.899 Electrocar diogram abnormal 225684717 R94.31 Right uppe r quadrant pain 339451659 R10.11 Health Concerns Section Related Observation LastModified by Organization Detai ls LastModified Time None Recorded Concern Status LastModified by Organization Details LastModified Time None Recorded Advance Directives Directive N: Payers Insurance Date Sequence Insurance Name Policy Number Policy Marrero Covered Member ID Marrero Member ID Guarantor Name 01/03/2025 1 [place]: YONATHAN ELAM OF [facility] [employer] PL[employer] (MEDICARE REPLACEMENT HMO) [id number] Caitlyn Barrera [id number] Caitlyn Tuel 05/20/2023 [place] [facility] [place]MEDICAID) Caitlyn Barrera [id number] Caitlyn Barrera 04/24/2023 [place] [id number] Caitlyn Tuel [id number] Caitlyn Tuel 04/24/2023 1 [facility] (MEDICAID REPLACEMENT - HMO) TAVARESNP Caitlyn Tuel [id number] Caitlyn Holly 09/19/2023 1 [facility] PLAN (MEDICARE REPLACEMENT/A DVANTAGE - HMO) TAVARESNP Caitlyn Tuel [id number] Caitlyn Holly 04/24/2023 1 [employer] (MEDICAID REPLACEMENT - HMO) MEDICAID Caitlyn Holly [id number] Caitlyn Holly 05/20/2023 2 [employer] (MEDICAID REPLACEMENT - HMO) [id number] Caitlyn Barrera [id number] Caitlyn Tuel Notes Date Note Type Note Provider Name and Address Organization Details Recorded Time 06/08/2024 text/html 69 yr old female presents for bilateral foot pain/burning. The left is the worst and she's having muscle spasms in the left as well. She fell out of bed a few months ago and hurt the left foot/great toe. She also has right shoulder pain from a fall in 2019 and she has limited rom due to pain. pt states she works at the [employer] and the repeat movements cause her shoulder to throb and radiate pain into her arm Bassem Bobo APRN [address], [place], [address], [place] - [facility] 06/08/2024 13:48:53 06/28/2024 text/html 69 yr old female presents requesting a CT of her sinuses. She reports facial tenderness,dental pain,thick drainage left ear pain, has some dizziness from sinus issues. pt states the symptoms are not improving and she wants a ct of sinus to see if something is going on. has taken otc meds and meds that was ordered and had no relief Bassem Bobo APRN [address], [place], [address], [place] [facility] 06/28/2024 14:39:49 07/20/2024 text/html 69 yr old female presents with diffuse abdominal pain since John. She states her bowels aren't moving like they usually do, even with a laxative she is not cleaning out good.She also has continued sinus issues, green thick nasal drainage/congestion , tenderness,pressure . She has a CT of the face ordered and will call the [facility] to get scheduled- she missed their call.pt states she also is having dizzy spells.pt states the abd pain is up in rt quad and hurts worse with certain foods she eats and radiates. Bassem Bobo APRN [address], [place], [address], [facility] - [facility] 07/20/2024 12:14:16 12/13/2024 text/html 69 yr old female presents for cough, sore throat, low grade temp that started yesterday. Patient is having sinus/nasal surgery in January, presents with pre op orders to have preformed after she is well. Bassem Bobo APRN [address], [place], [address], [place] - [facility] 12/13/2024 12:00:25 01/06/2025 text/html 70 year old francesco vicente who presents to the office today for apre op H&P, ekg and labs for sinus surgery 01-14-[address] Romo at [facility] refill on gabapentin for neuropathyhas concerns of right upper quadrant pain Bassem Bobo APRN [address], [place], [address], [place] - [facility] 01/06/2025 11:28:56 OBGyn Episode No OBEpisode recorded.
--- OUTSIDE RECORDS SUMMARY | 2025-01-12 10:34 | XMS_ITS | Continuity of Care Document ---
Author Organization [facility] Address [address] [place] [id number] Assessment No assessment recorded. Plan of Treatment Reminders Order Date Submit Date Provider Last Modified By Organization Details Last Modified Time Details Appointments Medicare AWE 40mins 2024 11:00A M Bassem Bobo, GAMING DIRECTOR Not available Not available Not available Lab CBC w/ auto diff 2024 025 [facility], [address], [address]ansico [address], [place], [address], 01/07/2025 10:08:08 BMP, serum or plasma 2024 025 [facility], [address], [address], [place], [address], 01/07/2025 10:08:08 rapid SARS CoV + SARS CoV 2 Ag, QL IA, respirato ry specimen 2024 025 [facility], [address] [place] [address], [phone], 12/13/2024 11:59:01 rapid strep group A, throat 2024 025 [facility], [address] [place] [address], [phone], 12/13/2024 11:59:01 rapid flu (A+B) 2024 025 [facility], [address] [place] [address], [phone], 12/13/2024 11:59:01 Referral None recorded. Procedures None recorded. Surgeries None recorded. Imaging electroca rdiogram 2024 025 [facility], [address] [place] [address], [phone], 12/13/2024 12:03:03 Medication Orders ceftriaxo ne 1 gram solution for injection 2024 bstears Not available 01/06/2025 10:35:58 prednison e 20 mg tablet [address], [address], 12/23/2024 05:01:54 doxycycli ne hyclate 100 mg capsule 2024 025 [facility], [address] [place] [address], [address], 12/27/2024 05:01:54 Patient TargetsNo targets recorded. Patient InstructionsNo instructions recorded. Reason for Referral None Reported. Results Created Date Observation Date Name Description Value Unit Range Abnormal Flag Note LastModifiedBy Organization Detail LastModifiedTime 12/14/1912/13/2024 rapid flu (A+B) Flu negati ve Not Available [address], [address], 12/13/2024 11:40:54 12/14/1912/13/2024 rapid flu (A+B) Type Both A & B Not Available [address], [address], 12/13/2024 11:40:54 12/14/19 25 12/13/2024 rapid SARS CoV + SARS CoV 2 Ag, QL IA, respi rator y speci men SARS CoV antigen Negati ve Not Available [address], [address], 12/13/2024 11:40:00 12/14/19 25 12/13/2024 rapid strep group A, throa t Strep negati ve Not Available [address], [address], 12/13/2024 11:40:17 12/14/19 25 12/13/2024 rapid strep group A, throa t Culture No Not Available [address], [address], 12/13/2024 11:40:17 12/14/19 25 12/13/2024 elect rocar diogr am No observ ation record ed. [address], [address], 12/13/2024 12:03:03 01/07/20 25 01/06/2025 elect rocar diogr am No observ ation record ed. [address], [address], 01/06/2025 13:32:21 01/07/20 25 01/06/2025 elect rocar diogr am No observ ation record ed. [email or web address] [address], [address], 01/10/2025 09:30:20 01/12/20 25 XR, chest , 2 view No observ ation record ed. janis [address] [place], [address], 01/11/2025 18:17:24 Result Notes None recorded. Problems Name Problem SNOMED Code Status Onset Date Resolution Date Notes Provider Name and Address Organization Details Recorded Time Allergic rhinitis 77417017 Active 2008 Evelyn daniels, [place] - [facility] 6 13:36:30 Depressive disorder 68731528 Active 2011 Bassem Bobo APRN [address], [place], [address], [place] - [facility] 4 08:53:31 Gastroesophage al reflux disease 540801464 Active Bassem Bobo APRN [address], [place], [address], [place] [facility] 4 08:53:43 Essential hypertension 15835573 Active 2006 Bassem Bobo APRN [address], [place], [address], [place] [facility] 4 08:53:34 Acquired hypothyroidism 302312691 Active 09/2015 Bassem Bobo APRN [address], [place], [address], [place] [facility] 4 08:53:08 Lateral epicondylitis 600235065 Active 2011 Evelyn Nair null, [place] - [facility] 6 13:38:29 Plantar fasciitis 556571694 Active 2012 Evelyn Nair [place] [facility] 6 13:38:41 Suspected COVID-19 528055553 Active 2020 Cynthia Mcgee null, [place] - [facility] 1 16:34:16 Gastroesophage al reflux disease without esophagitis 343438397 Active 2020 Bassem Bobo GAMING DIRECTOR [address], [place], [address], [place] - [facility] 4 08:54:44 Vitamin D deficiency 52909199 Active 2020 Bassem Bobo APRN [address], [place], [address], [place] [facility] 4 08:54:23 Major depressive disorder 570373348 Active 2020 Bassem Bobo, GAMING DIRECTOR [address], [place], [address], [place] [facility] 4 08:53:56 Mixed hyperlipidemia 747602362 Active 2020 Bassem Bobo, GAMING DIRECTOR [address], [place], [address], [place] [facility] 4 08:54:03 Pain of multiple joints 75511683 Active 2020 Bassem Bobo, GAMING DIRECTOR [address], [place], [address], [place] [facility] 4 08:54:05 Thyroid nodule 645617371 Active 2020 Bassem Bobo, GAMING DIRECTOR [address], [place], [address], [place] [facility] 4 08:54:28 Benign essential hypertension 6340605 Active 2020 Bassem Bobo, GAMING DIRECTOR [address], [place], [address], [place] [facility] 4 08:53:22 Obstructive sleep apnea syndrome 72165158 Active 2020 Bassem Bobo, GAMING DIRECTOR [address], [place], [address], [place] [facility] 4 08:54:20 Senile osteoporosis 41664790 Active 2020 Bassem Bobo, GAMING DIRECTOR [address], [place], [address], [place] [facility] 4 08:54:34 Cyst of ovary 20335948 Active 2020 Ali Peggy null[place] [facility] 1 22:21:36 Kidney stone 75471703 Active 2020 Ali Peggy null[place] - [facility] 1 15:24:12 History of calculus of kidney 415179191 Active 2020 Mikki Kraus, GAMING DIRECTOR [address], [place], [address], [place] [facility] 1 09:13:36 Congestion of nasal sinus 73484204 Active 2022 Mc Gray APRN [address], [place], [address], [place] - [facility] 3 08:11:11 Pain of ear 088349702 Active 2022 Mc Gray, GAMING DIRECTOR [address], [place], [address], [place] - [facility] 3 10:13:38 Posterior auricular pain 306756612 Active 2022 Mc Gray, RADHA [address], [place], [address], [place] [facility] 3 10:32:46 Hearing loss 84059378 Active 2023 [place]antha [place] - [facility] 4 09:45:45 Prediabetes 467960645 Active 2023 Bassem Bobo APRN [address], [place], [address], [facility] - [facility] 4 08:56:12 Neuropathy 988579461 Active 2023 Bassem Bobo APRN [address], [place], [address], [facility] - [facility] 4 08:57:26 Problem Notes None recorded. Procedures Surgical History Date Name Laterality Status Provider Name and Address Organization Details Recorded Time 10/07/19 25 colonoscopy completed Aislinn Cummings RN [address], [place], [address], [facility] - [facility] 11/23/2024 11:41:02 11/15/19 23 Medication Reconcilliation completed Alma Rojas [place] - [facility] 11/14/2022 11:24:49 11/09/19 23 Removal of foreign body in ear canal completed Bassem Bobo APRN [address], [place], [address], [facility] - [facility] 11/08/2022 10:01:22 05/24/20 21 Advance Care Planning completed Mandie Duffy RN [address], [place], [address], [facility] - [facility] 01/02/2021 13:26:20 05/24/20 21 Functional Status Assessed completed Mandie Duffy RN [address], [place], [address], [place] - [facility] 01/02/2021 13:25:52 05/10/20 20 Diastolic B/P greater than or equal to 90 mm Hg completed Ike Olson [place] - [facility] 05/10/2020 11:29:50 05/10/20 20 Systolic B/P greater than or equal to 140 mm Hg completed Ike Olson [place] - [facility] 05/10/2020 11:29:40 11/10/19 20 Diastolic B/P 80-89 [...] Name and Address Organization Details Recorded Time 199880 Augmentin medicatio n Not available Not available Not available 11/09/2018 12809 2 RxNorm fatig ue Ike Olson null, [place] - [facility] 9 13:32:16 127610 Keflex medicatio n nausea Not available low 11/26/2020 25853 7 RxNorm unkno wn Bassem Bobo, GAMING DIRECTOR [address], [place], [address], [place] - [facility] 5 11:57:38 35241 Substance with sulfonami de structure and antibacte rial mechanism of action (substanc e) medicatio n Not available Not available Not available 05/10/20162007 29977 8003 SNOMED React ion: Hives , nause a; Comme nt: Sulfo namid es; Not Available [facility] 09:39:39 Medications Name Sig Start Date [...] nued on: 08/16/19 14 12:09PM; User: isreal EstJoann Completi on: 06/11/20 14;Indic ation: Hyperten chato - (4019 00);Isa Chaparro fied: 06/16/20 13 11:46AM Not Available [...] Disconti nued on: 12/15/19 14 9:26AM;U ser: isreal EstJoann Completi on: 05/16/20 14;Indic ation: Gastroes ophageal Reflux - (5308 10);Isa Chaparro fied: 11/18/19 14 3:31PM Not Available Not [...] Prevacid 30 mg oral capsule, delayed release( /SUSANNAH);c omment: not covered by insuranc e - must try OTC first;Pr escribe Status: Prescrib ed on: 09/09/19 14 10:23AM; Disconti nued Status: Disconti nued on: 11/18/19 14 3:09PM;U ser: [email or web address]; Est. Completi on: 03/08/20 14;Indic ation: Gastroes ophageal Reflux - (.5308 10);Phar [email or web address] fied: 09/09/19 14 10:23AM Not Available Not [...] on: 04/14/20 09;Indic ation: Earache - (3887 );Prin helen: 04/07/20 09 Not Available Not Available [...] Recorded on: 06/16/20 13 11:01AM; User: john Romero on: Pain - (16.7809 00) Not Available Not Available Not Available gabapenti n 300 mg capsule TAKE ONE (1) CAPSULE EVERY DAY BY ORAL ROUTE. active Not Available Not Available No t Available omeprazol e 20 mg capsule,d elayed release take 1 capsule (20 mg) by oral route once daily before a meal 05/05 completed omeprazo le 20 mg oral capsule, delayed release( /EC);c omment: taking otc;Esvin rded Status: Recorded on: [...] 1:16PM;U ser: [email or web address] ;Est. Completi on: 04/14/20 09 Not Available [...] Available Not Available Nasonex 50 mcg/actua tion [place] 06/03 completed Not Available Not Available Not [...] Not Available Not Available Not Available Acid Customer Acquisition Manager (ranitidi ne) 75 mg tablet take 1 tablet (75 mg) by oral route once daily with a glass of water 11/17 completed Acid Customer Acquisition Manager (ranitid ine) 75 mg oral tablet;R ecorded [...] Prescrib ed on: 01/08/20 16 11:09AM; User: [email or web address] EstJoann Completi on: 07/06/20 16;Pharm Albert ied: 01/08/20 16 11:09AM Not Available Not [...] Disconti nued on: 09/09/19 14 10:23AM; User: isreal Est. Completi on: 02/29/20 14;Indic ation: Gastroes ophageal Reflux - (09.5308 10);Phar Shankar fied: 09/01/19 14 12:55PM Not [...] Disconti nued on: 08/16/19 14 11:45AM; User: [email or web address];In dication : Pain - (16.7809 00) Not [...] Disconti nued on: 08/30/19 10 1:16PM;U ser: [email or web address] ;Est. Completi on: 04/14/20 09 Not Available [...] Available Not Available Not Available Fluarix Quad 2179-4103 (PF) 60 mcg (15 mcg x 4)/0.5 mL IM syringe 05/22 completed Not Available Not Available Not Available Flublok Quad (PF) 180 mcg (45 mcg x 4)/0.5 mL IM syringe PHARMACI ST ADMINIST ERED IMMUNIZA TION ADMINIST ERED AT TIME OF DISPENSI NG 08/09 completed Not Available Not Available Not Available Fluzone High-Dose Quad 2020-21 (PF) 240 mcg/0.7 mL IM syringe PHARMACI ST ADMINIST ERED IMMUNIZA TION ADMINIST ERED AT TIME OF DISPENSI NG 11/13 completed Not Available Not Available Not Available Astepro Allergy 205.5 mcg (0.15 %) nasal spray [place] 1 spray twice a day by intranas [...] Updated DateTime 5 162.56 cm 31.3 kg/m2 26912.9 1 g 86 /min 94 % 94 % 18 /min 99.7 [degF] 142 mm[Hg] 80 mm[Hg] Alma Rojas [place] - [facility] 5 11:24:18 Social History Question Answer Notes LastModified by Organizat ion Details LastModified Time Tobacco Smoking Status Former Smoker Evelyn Nair null, [place] - [facility] 05/29/2016 13:38:48 Able To [...] Or The Highest Degree You Have Received? NS64344-4 Information not available 05/22/2023 Swimming/diving No Informati [...] Do You Have A Medical Power Of Stock Grader? 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 [id number] Information not available 05/22/2023 Do you have difficulty concentrating, remembering or making decisions? No Information no t available 05/22/2023 Family History Relationship Description Onset Age of this Age Resolved Age Notes LastModified by Organization Details LastModified Time Paternal Grandmother Arthritis [email or web address] Not available 1 13:40:32 Sister Asthma [email or web address] Not available 05/29/2016 13:40:43 Sister Rheumatoid arthritis [email or web address] Not available 2022 11:56:42 Brother Bipolar disorder [id number] Not available 2022 11:56:42 Maternal Grandmother Malignant tumor of breast Not available 05/29 13:41:05 Unspecified Relation Malignant tumor of colon Aunt [email or web address] Not available 05/29 13:41:24 Unspecified Relation Hypercholest erolemia Not available 05/29 13:42:45 Mother Corneal transplant [email or web address] Not available 11/20 11:56:42 Mother Diabetes mellitus Type II [email or web address] Not available 05/29/2016 13:42:32 Mother Hypertensive disorder [email or web address] Not available 05/29 13:43:05 Medical History Condition Response Allergies/Hayfever Y Arthritis Y Kidney Stones Y Ear or Hearing Problems Y Thyroid Problems Y Hypertension Y Depression Y Hypothyroidism Y Gynecological History Statement/Question Response Abnormal Pap [...] Recorded Time Tdap 017 completed Not Available [facility] 08/21/2019 03:54:34 Pneumococcal conjugate PCV 13 007 completed Samantha Stears null, [place] - [facility] 09/19/2023 11:45:02 influenza, unspecified formulation 009 completed Samantha Stears [place] [facility] 09/19/2023 11:45:02 influenza, unspecified formulation 013 completed Not Available [facility] 09/04/2019 02:21:29 influenza, unspecified formulation 016 completed Samantha Stears [place] [facility] 09/19/2023 11:45:02 Novel Esitovbdl-[id number], all formulations 010 completed Samantha Stears [place] [facility] 09/19/2023 11:45:02 Influenza, split virus, quadrivalent, preservative 016 completed Not Available [facility] 08/21/2019 03:54:18 Influenza, high-dose, quadrivalent, PF 023 completed Ike Olson null[place] - [facility] 05/08/2023 11:45:58 pneumococcal polysaccharide PPV23 016 completed Not Available [facility] 09/04/2019 02:21:58 zoster live 016 completed Samantha Stears null, [place] - [facility] 09/19/2023 11:45:02 Influenza, high-dose, quadrivalent, PF 024 completed Alma Rojas [place] [facility] 06/08/2024 14:56:51 Influenza, split virus, quadrivalent, preservative 019 completed Sam[facility] Stears null[place] [facility] 09/19/2023 11:45:01 Influenza, split virus, quadrivalent, preservative 018 completed Not Available [facility] 08/21/2019 03:55:14 Influenza, high-dose, quadrivalent, PF 020 completed Samantha Stears [place] [facility] 09/19/2023 11:45:01 Influenza, split virus, quadrivalent, preservative 021 completed Samantha Stears [place] [facility] 09/19/2023 11:45:01 COVID-19, mRNA, LNP-S, PF, 100 mcg/0.5mL dose or 50 mcg/0.25mL dose 021 completed Samantha Stears [place] [facility] 09/19/2023 11:45:01 Influenza, split virus, quadrivalent, preservative 016 completed Alma Rojas [place] [facility] 10/17/2022 15:07:01 Influenza, recombinant, quadrivalent, PF 019 completed Alma Rojas [place] [facility] 10/17/2022 15:07:01 Influenza, high-dose, quadrivalent, PF 020 completed Al[place] Ro[place] [facility] 10/17/2022 15:07:01 Influenza, high-dose, quadrivalent, PF 021 completed Alma Rojas [place] [facility] 10/17/2022 15:07:01 COVID-19 vaccine, vector-nr, rS-Ad26, PF, 0.5 mL 021 completed Alma Rojas [place] [facility] 10/17/2022 15:07:01 Tdap 016 completed Alma Rojas [place] - [facility] 10/17/2022 15:07:01 zoster live 016 completed Alma Rojas null, [facility] 10/17/2022 15:07:01 Influenza, split virus, quadrivalent, PF 017 completed Alma Rojas [place] [facility] 10/17/2022 15:07:01 Influenza, split virus, quadrivalent, PF 019 cancelled patient objection Not Available [facility] 08/21/2019 03:56:06 RSV, recombinant, protein subunit RSVpreF, adjuvant reconstituted, 0.5 mL, PF 023 completed Samantha العراقي null, [facility] 09/19/2023 11:45:01 Past Encounters Encounter ID Performer Location Encounter Start Date Encounter Closed Date Diagnosis/Indication Diagnosis SNOMED-CT Code Diagnosis ICD10 Code Diagnosis Note [id number] Bassem Bobo APRN [address] [address] 12/13/2024 11:09:04 12/13/2024 12:02:57 Preoperative procedure 636022137 Z01.818 Body mass index 30+ - obesity 129521828 E66.9 31.3 Acute maxi llary sinusitis 17528653 J01.00 raising HOB, humidifier use, saline nasal spray, rest, encourage PO fluids and monitor hydration status, infection control measures.R ecommended acetaminop hen/ibupro fen PRN pain, feverFollo w-up as needed Health Concerns Section Related Observation LastModified by Organization Detai ls LastModified Time None Recorded Concern Status LastModified by Organization Details LastModified Time None Recorded Payers Encounter Date Sequence Insurance Name Policy Number Policy Marrero Covered Member ID Marrero Member ID Guarantor Name 12/13/2024 1 [place] [employer] [place] (MEDICARE REPLACEMENT HMO) [id number] Caitlyn Barrera [id number] Caitlyn Barrera Notes Date Note Type Note Provider Name and Address Organization Details Recorded Time 12/13/2024 text/html 69 yr old female presents for cough, sore throat, low grade temp that started yesterday. Patient is having sinus/nasal surgery in January, presents with pre op orders to have preformed after she is well. Bassem Bobo, GAMING DIRECTOR [address], [place], [address], [place] - [facility] 12/13/2024 12:00:25 OBGyn Episode No OBEpisode recorded.
--- OUTSIDE RECORDS SUMMARY | 2025-01-12 10:34 | XMS_ITS | Continuity of Care Document ---
Author Organization [facility] Address [address] [place] [phone] Assessment No assessment recorded. Plan of Treatment Reminders Order Date Submit Date Provider Last Modified By Organization Details Last Modified Time Details Appointments Medicare AWE 40mins 2024 11:00A M Bassem Bobo, LITIGATION LEGAL SECRETARY Not available Not available Not available Lab drug screen, urine 2024 025 [facility], [address] [place] [address], [phone], 01/06/2025 11:23:16 Referral cardiolog ist referral - abnormal ekg, needs surgery clearance 2024 025 BENTON Cooney MD, [address], [place], [address], 01/06/2025 13:15:38 Procedures None recorded. Surgeries None recorded. Imaging electroca rdiogram 2024 025 [facility], [address] [place] [address], [phone], 01/06/2025 13:32:15 XR, chest, 2 view 2024 025 [facility], [address] [place] [address] , [place], [address], 01/11/2025 13:54:20 NM, hepatobil iary scan, w/pharm 2024 025 [facility], [address] [place] [address] [place], [address], 01/06/2025 15:33:05 Medication Orders gabapenti n 300 mg capsule 2024 025 [facility], [address] [place] [address], [place], [address], 01/06/2025 11:23:24 Patient TargetsNo targets recorded. Patient InstructionsNo instructions recorded. Reason for Referral Executive Community Planning Referral for El ectrocardiogram abnormal abnormal ekg, needs surgery clearance Referring Physician: Bassem Bobo, Family Medicine, Encounter Date: 01/06/2025 Results Created Date Observation Date Name Description Value Unit Range Abnormal Flag Note LastModifiedBy Organization Detail LastModifiedTime 12/14/1912/13/2024 elect rocar diogr am No observ ation record ed. [address], [address], 12/13/2024 12:03:03 01/07/20 25 01/06/2025 elect rocar diogr am No observ ation record ed. [address], [address], 01/06/2025 13:32:21 01/07/20 25 01/06/2025 elect rocar diogr am No observ ation record ed. [email or web address] [address], [address], 01/10/2025 09:30:20 01/12/20 25 XR, chest , 2 view No observ ation record ed. janis [address] , [place], [address], 01/11/2025 18:17:24 Result Notes None recorded. Problems Name Problem SNOMED Code Status Onset Date Resolution Date Notes Provider Name and Address Organization Details Recorded Time Allergic rhinitis 35638770 Active 2008 Evelyn daniels, [place] - [facility] 6 13:36:30 Depressive disorder 74359220 Active 2011 Bassem Bobo, LITIGATION LEGAL SECRETARY [address], [place], [address], [place] - [facility] 4 08:53:31 Gastroesophage al reflux disease 987906242 Active Bassem Bobo, LITIGATION LEGAL SECRETARY [address], [place], [address], [place] - [facility] 4 08:53:43 Essential hypertension 74369323 Active 2006 Bassem Bobo, LITIGATION LEGAL SECRETARY [address], [place], [address], [place] [facility] 4 08:53:34 Acquired hypothyroidism 069402168 Active 09/2015 Bassem Bobo APRN [address], [place], [address], [place] [facility] 4 08:53:08 Lateral epicondylitis 197953649 Active 2011 Evelyn Nair null, [place] - [facility] 6 13:38:29 Plantar fasciitis 909387714 Active 2012 Evelyn Korey daniels, [place] - [facility] 6 13:38:41 Suspected COVID-19 294630173 Active 2020 Cynthia Mcgee null, [place] - [facility] 1 16:34:16 Gastroesophage al reflux disease without esophagitis 251798738 Active 2020 Bassem Bobo, LITIGATION LEGAL SECRETARY [address], [place], [address], [place] [facility] 4 08:54:44 Vitamin D deficiency 69242488 Active 2020 Bassem Bobo APRN [address], [place], [address], [place] [facility] 4 08:54:23 Major depressive disorder 638630003 Active 2020 Bassem Bobo, LITIGATION LEGAL SECRETARY [address], [place], [address], [place] - [facility] 4 08:53:56 Mixed hyperlipidemia 641335143 Active 2020 Bassem Bobo, LITIGATION LEGAL SECRETARY [address], [place], [address], [place] [facility] 4 08:54:03 Pain of multiple joints 66723862 Active 2020 Bassem Bobo, LITIGATION LEGAL SECRETARY [address], [place], [address], [place] [facility] 4 08:54:05 Thyroid nodule 044409959 Active 2020 Bassem Bobo, LITIGATION LEGAL SECRETARY [address], [place], [address], [place] [facility] 4 08:54:28 Benign essential hypertension 2410815 Active 2020 Bassem Bobo, LITIGATION LEGAL SECRETARY [address], [place], [address], [place] [facility] 4 08:53:22 Obstructive sleep apnea syndrome 69379749 Active 2020 Bassem Bobo, LITIGATION LEGAL SECRETARY [address], [place], [address], [place] [facility] 4 08:54:20 Senile osteoporosis 28181734 Active 2020 Bassem Bobo, LITIGATION LEGAL SECRETARY [address], [place], [address], [place] [facility] 4 08:54:34 Cyst of ovary 86948602 Active 2020 Ali Peggy null, [place] - [facility] 1 22:21:36 Kidney stone 98829695 Active 2020 Ali Peggy null, [place] - [facility] 1 15:24:12 History of calculus of kidney 324735970 Active 2020 Mikki Kraus, LITIGATION LEGAL SECRETARY [address], [place], [address], [place] [facility] 1 09:13:36 Congestion of nasal sinus 41404072 Active 2022 Mc Gray APRN [address], [place], [address], [place] [facility] 3 08:11:11 Pain of ear 307674788 Active 2022 Mc Gray APRN [address], [place], [address], [place] [facility] 3 10:13:38 Posterior auricular pain 986633926 Active 2022 Mc Gray APRN [address], [place], [address], [place] [facility] 3 10:32:46 Hearing loss 00842949 Active 2023 Samantha العراقي [place], [place] - [facility] 4 09:45:45 Prediabetes 787147268 Active 2023 Bassem Bobo APRN [address], [place], [address], [facility] - [facility] 4 08:56:12 Neuropathy 956271044 Active 2023 Bassem Bobo APRN [address], [place], [address], [facility] - [facility] 4 08:57:26 Problem Notes None recorded. Procedures Surgical History Date Name Laterality Status Provider Name and Address Organization Details Recorded Time 10/07/19 25 colonoscopy completed Aislinn Cummings RN [address], [place], [address], [place] - [facility] 11/23/2024 11:41:02 11/15/19 23 Medication Reconcilliation completed Alma Rojas [place] - [facility] 11/14/2022 11:24:49 11/09/19 23 Removal of foreign body in ear canal completed Bassem Bobo APRN [address], [place], [address], [facility] - [facility] 11/08/2022 10:01:22 05/24/20 21 Advance Care Planning completed Mandie Duffy RN [address], [place], [address], [facility] - [facility] 01/02/2021 13:26:20 05/24/20 21 Functional Status Assessed completed Mandie Duffy RN [address], [place], [address], [facility] - [facility] 01/02/2021 13:25:52 05/10/20 20 Diastolic B/P greater than or equal to 90 mm Hg completed Ike Olson [place] - [facility] 05/10/2020 11:29:50 05/10/20 20 Systolic B/P greater than or equal to 140 mm Hg completed Ike Jacksonyles [place] - [facility] 05/10/2020 11:29:40 11/10/19 20 Diastolic B/P 80-89 mm Hg completed Ike Jacksonyles [place] - [facility] 11/10/2019 16:38:52 11/10/19 20 Systolic B/P greater than or equal to 140 mm Hg completed Ike Olson [place] - [facility] 11/10/2019 16:39:03 05/19/20 17 Date of Last Mammogram completed Mandie Dunaway [place] - [facility] 05/22/2017 10:20:16 12/26/19 17 Nail avulsion completed Gary Williamson [place] - [facility] 12/25/2016 18:54:35 09/27/19 16 Date of Last Pap Smear completed Evelyn Nair [place] - [facility] 05/29/2016 13:39:53 08/04/19 13 Most Recent Bone Density completed Ike Olson [place] - [facility] 06/03/2016 16:01:33 Imaging Results None recorded. Procedure Notes None recorded. Medical Equipment None Reported. Allergies Allergen ID Allergen Name Allergen Category Reaction Reaction Severity Criticality Documentation Date Start Date Code Code System Note Provider Name and Address Organization Details Recorded Time 366878 Augmentin medicatio n Not available Not available Not available 11/09/2018 45031 2 RxNorm fatig ue Ike Olson [facility], [place] - [facility] 9 13:32:16 300536 Keflex medicatio n nausea Not available low 11/26/2020 08910 7 RxNorm unkno wn Bassem Jeramie, LITIGATION LEGAL SECRETARY [address], [place], [address], [place] - [facility] 5 11:57:38 91895 Substance with sulfonami de structure and antibacte rial mechanism of action (substanc e) medicatio n Not available Not available Not available 05/10/20162007 04767 8003 SNOMED React ion: Hives , nause a; Comme nt: Sulfo namid es; Not Available [facility] 6 09:39:39 Medications Name Sig Start [...] 06/11/20 14;Indic ation: Hyperten chato - (4019 );Isa Chaparro fied: 06/16/20 13 11:46AM Not [...] ed on: 01/12/20 16 10:58AM; User: jed Caryti on: Poor sleep pattern - (780.59) ;Pharmac [...] nued on: 12/15/19 14 9:26AM;U ser: isreal Est. Completi on: 05/16/20 14;Indic ation: Gastroes [...] nued on: 01/12/20 16 10:29AM; User: maile Swenson on: 11/19/19 16;Indic ation: Bacteria l Conjunct ivitis - (37210 02) Not Available Not Available Not Available Nasacort AQ 55 mcg nasal spray aerosol inhale 2 sprays in each nostril by intranas al route once daily for 14 days 08/30 completed Nasacort AQ 55 mcg nasal aerosol, spray;Re corded Status: Recorded on: 04/07/20 09 2:21PM;D iscontin ued Status: Disconti nued on: 08/30/19 10 1:16PM;U ser: dary StrongEst. Completi on: 04/21/20 09 Not Available Not [...] by insuranc e - must try OTC first;Jay whaley Status: Prescrib ed on: 09/09/19 14 10:23AM; [...] Completi on: 04/14/20 09;Indic ation: Earache - (.3887 00);Prin helen: 04/07/20 09 Not Available Not [...] 11:01AM; User: john Caryti on: Pain - (16.7809 00) Not Available [...] on: 08/30/19 10 1:16PM;U ser: dary ;Est. Completarley on: 04/14/20 09 Not Available Not Available [...] Available Not Available Nasonex 50 mcg/actua tion Merrill 06/03 completed Not Available Not Available Not [...] Not Available Not Available Not Available Acid Manager Of Development (ranitidi ne) 75 mg tablet take 1 tablet (75 mg) by oral route once daily with a glass of water 11/17 completed Acid Manager Of Development (ranitid ine) 75 mg oral tablet;R ecorded [...] ed on: 01/08/20 16 11:09AM; User: felisha Est. Completi on: 07/06/20 16;Pharm acDanny ied: [...] Cymbalta 60 mg oral capsule, delayed release( /EC);R ecorded Status: Recorded on: 10/27/19 13 4:15PM;D iscontin ued Status: Disconti nued on: 05/05/20 13 11:19AM; User: [email or web address] Not Available Not Available Not Available Olga-D 12 Hour 1 daily 05/07 completed Not Available Not Available Not Available naproxen sodium 08/16 completed naproxen sodium Oral;Rec orded Status: Recorded on: 09/02/19 13 1:53PM;D iscontin ued Status: Disconti nued on: 08/16/19 14 11:45AM; User: halla;In dication : Pain - (16.7809 00) Not [...] Available Not Available Not Available Fluarix Quad 1240-5761 (PF) 60 mcg (15 mcg x 4)/0.5 [...] Allergy 205.5 mcg (0.15 %) nasal spray Merrill 1 spray twice a day by intranas al route. 2023 active Not Available Not Available Not Avai lable Vitals Date Recorded Body height Respiratory rate Body mass index (BMI) Body weight Heart rate Oxygen saturation Oxygen saturation in Arterial blood by Pulse oximetry Body temperature Systolic blood pressure Diastolic blood pressure Provider Name and Address Organization Details Last Updated DateTime 5 162.56 cm 18 /min 31.1 kg/m2 71165.2 2 g 78 /min 94 % 94 % 97.9 [degF] 140 mm[Hg] 84 mm[Hg] Samantha العراقي [place] - [facility] 5 10:45:36 Social History Question Answer Notes LastModified by Organizat ion Details LastModified Time Tobacco Smoking Status Former Smoker Evelyn Korey null, [place] - [facility] 05/29/2016 13:38:48 Able [...] Or The Highest Degree You Have Received? [id number] Information not available 05/22/2023 Swimming/diving No Informati [...] Do You Have A Medical Power Of Solar Energy Sales Specialist? No Information not available 01/06/2025 What Was [...] anxious, or unable to sleep at night)? [id number] Information not available 05/22/2023 Do you have difficulty concentrating, remembering or making decisions? No Information no t available 05/22/2023 Family History Relationship Description Onset Age of this Age Resolved Age Notes LastModified by Organization Details LastModified Time Paternal Grandmother Arthritis [email or web address] Not available 1 13:40:32 Sister Asthma [email or web address] Not available 05/29/2016 13:40:43 Sister Rheumatoid arthritis [email or web address] Not available 2022 11:56:42 Brother Bipolar disorder [id number] Not available 2022 11:56:42 Maternal Grandmother Malignant tumor of breast [email or web address] Not available 05/29 13:41:05 Unspecified Relation Malignant tumor of colon Aunt [email or web address] Not available 05/29 13:41:24 Unspecified Relation Hypercholest erolemia [email or web address] Not available 05/29 13:42:45 Mother Corneal transplant [email or web address] Not available 11/20 11:56:42 Mother Diabetes mellitus Type II [email or web address] Not available 05/29/2016 13:42:32 Mother Hypertensive disorder [email or web address] Not available 05/29 13:43:05 Medical History Condition Response Allergies/Hayfever Y Kidney Stones Y Ear or Hearing Problems Y Thyroid Problems Y Depression Y Hypothyroidism Y Arthritis Y Hypertension Y Gynecological History Statement/Question Response [...] formulation 013 completed Not Available [facility] 09/04/2019 02:21:29 influenza, unspecified formulation 016 completed Samantha Stears null, [facility] 09/19/2023 11:45:02 Novel [id number], all formulations 010 completed Samantha Stears null, [facility] 09/19/2023 11:45:02 Influenza, split virus, quadrivalent, preservative 016 completed Not Available [facility] 08/21/2019 03:54:18 Influenza, high-dose, quadrivalent, PF 023 completed Ike Olson null, [facility] 05/08/2023 11:45:58 pneumococcal polysaccharide PPV23 016 completed Not Available [facility] 09/04/2019 02:21:58 zoster live 016 completed Samantha Stears null, [facility] 09/19/2023 11:45:02 Influenza, high-dose, quadrivalent, PF 024 completed Alma Rojas null, [facility] 06/08/2024 14:56:51 Influenza, split virus, quadrivalent, preservative 019 completed Samantha Stears null, [facility] 09/19/2023 11:45:01 Influenza, split virus, quadrivalent, preservative 018 completed Not Available [facility] 08/21/2019 03:55:14 Influenza, high-dose, quadrivalent, PF 020 completed Samantha Stears null, [facility] 09/19/2023 11:45:01 Influenza, split virus, quadrivalent, preservative 021 completed Samantha Stears null, [facility] 09/19/2023 11:45:01 COVID-19, mRNA, LNP-S, PF, 100 mcg/0.5mL dose or 50 mcg/0.25mL dose 021 completed Samantha Stears null, [facility] 09/19/2023 11:45:01 Influenza, split virus, quadrivalent, preservative 016 completed Alma Rojas null, [place] - [facility] 10/17/2022 15:07:01 Influenza, recombinant, quadrivalent, PF 019 completed Alma Rojas [place] [facility] 10/17/2022 15:07:01 Influenza, high-dose, quadrivalent, PF 020 completed Al[place] Rojas [place] [facility] 10/17/2022 15:07:01 Influenza, high-dose, quadrivalent, PF 021 completed Al[place] Rojas [place] [facility] 10/17/2022 15:07:01 COVID-19 vaccine, vector-nr, rS-Ad26, PF, 0.5 mL 021 completed Alma Rojas [place] [facility] 10/17/2022 15:07:01 Tdap 016 completed Alma Rojas null[place] - [facility] 10/17/2022 15:07:01 zoster live 016 completed Alma Rojas [place] - [facility] 10/17/2022 15:07:01 Influenza, split virus, quadrivalent, PF 017 completed Alma Rojas null[place] - [facility] 10/17/2022 15:07:01 Influenza, split virus, quadrivalent, PF 019 cancelled patient objection Not Available [facility] 08/21/2019 03:56:06 RSV, recombinant, protein subunit RSVpreF, adjuvant reconstituted, 0.5 mL, PF 023 completed Samantha العراقي null, [facility] 09/19/2023 11:45:01 Past Encounters Encounter ID Performer Location Encounter Start Date Encounter Closed Date Diagnosis/Indication Diagnosis SNOMED-CT Code Diagnosis ICD10 Code Diagnosis Note [id number] Bassem Bobo APRN [address] [address] 12/13/2024 11:09:04 12/13/2024 12:02:57 Preoperative procedure 510099202 Z01.818 Body mass index 30+ - obesity 526014851 E66.9 31.3 Acute maxi llary sinusitis 80263044 J01.00 raising HOB, humidifier use, saline nasal spray, rest, encourage PO fluids and monitor hydration status, infection control measures.R ecommended acetaminop hen/ibupro fen PRN pain, feverFollo w-up as needed [id number] Bassem Bobo APRN [facility] [address] [place] [address] 01/06/2025 10:06:17 01/06/2025 11:31:56 Preoperative state 81875473 Z01.818 will need surgery clearance from cardiology also- pt report no cardiac hx Neuropathy 455186768 G62 .9 Pt compliant with plan of Karen reviewedme dication compliance discussedL ast uds:01/06/25 Control substance agreement on file Long-term current use of drug therapy 983524041 Z79.899 Electrocar diogram abnormal 550027508 R94.31 Right uppe r quadrant pain 628999321 R10.11 Health Concerns Section Related Observation LastModified by Organization Detai ls LastModified Time None Recorded Concern Status LastModified by Organization Details LastModified Time None Recorded Payers Encounter Date Sequence Insurance Name Policy Number Policy Marrero Covered Member ID Marrero Member ID Guarantor Name 01/06/2025 1 BCBS-[place]IA AN[place]: [place] (MEDICARE REPLACEMENT HMO) [id number] Caitlyn Barrera [id number] Caitlyn Barrera Notes Date Note Type Note Provider Name and Address Organization Details Recorded Time 01/06/2025 text/html 70 year old fema cinthia who presents to the office today for apre op H&P, ekg and labs for sinus surgery 01-14-[address] Romo at [facility] refill on gabapentin for neuropathyhas concerns of right upper quadrant pain Bassem Bobo, LITIGATION LEGAL SECRETARY [address], [place], [address], [place] [facility] 01/06/2025 11:28:56 OBGyn Episode No OBEpisode recorded.
--- NOTE | 2025-01-12 11:00 | CA_ITS ---
APPROVED REPORT EXAM: Comprehensive 2D, Doppler, and color-flow Echocardiogram Offset Lithographic Press Operator: Nubia Kraft CRT Ht: 5 ft 4 in Wt: 178lbs BSA: 1.86 BP: 162/93 mmHg Indications: Chest Pain 2D Dimensions LA Volume 33.60 mL LA Volume Index 17.60 mL/m2 (M/F) 16-34 M-Mode Dimensions RVDd 2.50 cm (0.9-2.6) LA Diam 3.21 cm (1.9-4.0) LVDd 3.53 cm (3.5-5.7) LVDs 1.96 cm (3.5-5.7) IVSd 2.25 cm (0.6-1.1) PWd 0.61 cm (0.6-1.1) EF (Teich) 76.70% FS 44.50% EDV (Teich) 51.90 mL TAPSE 2.46 (<1.7) ESV (Teich) 12.10 mL LV Diastology E Decel Time 127 (160-240 msec) E/A Ratio 2.41 MED A' 9.00 cm/s LAT A' 11.10 cm/s Aortic Valve AO Peak GR. 7.20 mmHg Mitral Valve MV E Max Zach. 91.0 (40-130 cm/s) MV A Velocity 38.0 (40-130 cm/s) E/A Ratio 2.41 MV PHT 37.0 ms Pulmonary Valve PV Peak Velocity 123.0 (50-150 cm/s) Tricuspid Valve TR P. Velocity 190.00 cm/s RAP Estimate 10.00 mmHg RVSP 24.40 mmHg Left Ventricle The left ventricle is normal size. The left ventricular systolic function is normal. The left ventricular ejection fraction is within the normal range. There is increased LV wall thickness. There is normal LV segmental wall motion. Diastolic function is indeterminate. LVEF is 60%. Right Ventricle The right ventricle is normal size. The right ventricular systolic function is normal. Atria The left atrium size is normal. The right atrium size is normal. There is no Doppler evidence of interatrial shunt. Aortic Valve Aortic valve is mildly thickened. There is no aortic valvular stenosis. No aortic regurgitation is present. Mitral Valve The mitral valve is normal in structure. No evidence of mitral valve stenosis. Mild mitral regurgitation. Tricuspid Valve Tricuspid valve is grossly normal in structure and function. Trace tricuspid regurgitation. There is insufficient TR jet to estimate RVSP. Pulmonic Valve The pulmonary valve is normal in structure. Trace pulmonic regurgitation. Great Vessels The aortic root is normal in size. The ascending aorta is borderline dilated, measuring 3.7 cm in diameter. IVC is normal in size and collapses >50% with inspiration. Pericardium There is no pericardial effusion. Other Information Study Quality: Fair Conclusion Normal biventricular systolic function. Mild MR. Borderline dilated ascending aorta (3.7 cm in diameter). Electronically signed by : Edna Cooney MD 01/16/2025 23:59:40
--- NOTE | 2025-01-12 12:30 | NM_ITS ---
APPROVED REPORT Exam: Nuclear Stress Test Indication: cp Patient Location: Outpatient Stress Tech: Carol Ford [place] Tech:ECTOR Mahoney, RT (R)(N) Ht: 5 ft 4 in Wt: 173 lbs Bra Size: 38d HR: 63 bpm BP: 158/90 mmHg BSA: 1.84 m2 TID: 1.07 BMI: 29.6 History: Chest pain Procedure: Patient received 0.4 mg of intravenous Lexiscan, resting heart rate 63 bpm, resting blood pressure 158/90 mmHg, with Lexiscan maximum heart rate achieved was 95 bpm which is 85 % of the maximum predicted heart rate and blood pressure was 149/80 mmHg. With Lexiscan, patient denied any complaint of chest pain. Cardiac Stress and Resting SPECT Images: Cardiac Stress and Resting SPECT images were obtained using technetium 99m Myoview 29.1 mCi stress and 10.24 mCi at rest. Resting and stress imaging in supine and prone positions demonstrate a medium sized, moderate, reversible perfusion defect in the basal to mid inferior LV adams. Gated imaging demonstrates normal global LV systolic function. LVEF is calculated at 62%. Conclusion: Medium sized, moderate, reversible perfusion defect in the basal to mid inferior LV adams. Findings are suggestive of reversible ischemia. Gated imaging demonstrates normal global LV systolic function. LVEF is calculated at 62%. Electronically signed by : Edna Cooney MD 01/13/2025 13:05:14
[2025-01-12] MEDS: ISOTOPE MYOVIEW (PER STUDY) 1 DOSE IV (14:17)
[2025-01-12] MEDS: SODIUM CHLORIDE 0.9% 10ML SYR (RAD ONLY) 10 ML IV ×2 (14:17)
[2025-01-12] MEDS: REGADENOSON 0.4MG/5ML SYRINGE 0.4 MG IV (14:17)
== END 2025-01-12 23:59 | disposition home or self-care (01) ==
LOC: RT 10:27
PROVIDERS: PCP Nurse Practitioner Family; Visit Provider Nurse Practitioner Family
DX: Z01.810 Encounter for preprocedural cardiovascular examination (principal); I34.0 Nonrheumatic mitral (valve) insufficiency; I77.810 Thoracic aortic ectasia
CPT/HCPCS: 78452; 93017; 93018; 93306; A9502; J2785

== ENCOUNTER 2025-01-17 09:08 | Outpatient (CLI) | payer MEDICARE, SELFPAY ==
--- NOTE | 2025-01-17 09:10 | NM_ITS ---
FINAL REPORT CLINICAL HISTORY: RUQ PAIN 9:20AM 8.13 MCI TC CHOLETEC 1.6 MCG CCK NO PAIN WITH CCK COMPARISON: None FINDINGS: Sequential anterior projection images of the abdomen were obtained after the intravenous injection of 8.13 mCi technetium 99m Choletec. There is normal uptake of radiotracer by the liver. The bile ducts are visualized by 10 minutes. Gallbladder activity is seen by 10 minutes. Bowel activity is noted by 10 minutes. After 1 hour, 1.6 ?g of CCK was injected intravenously for calculation of gallbladder ejection fraction. The gallbladder ejection fraction is 70%, which is within normal limits. IMPRESSION: No evidence of cystic duct or bile duct obstruction. Normal gallbladder ejection fraction of 70%. Reviewed, Interpreted and Dictated by Guzman Lowe MD Transcribed by Idalia Franco Authenticated and [facility]
[2025-01-17] MEDS: SINCALIDE 1.6 MCG in 0.9 % SODIUM CHLORIDE 50 ML 100 MCG IV (11:06)
[2025-01-17] MEDS: ISOTOPE CHOLETECH;1 DOSE (UP TO 15 MCI) IV (11:06)
[2025-01-17] MEDS: SODIUM CHLORIDE 0.9% 10ML SYR (RAD ONLY) 10 ML IV (11:06)
== END 2025-01-17 23:59 | disposition home or self-care (01) ==
PROVIDERS: PCP Nurse Practitioner Family; Visit Provider Nurse Practitioner Family
DX: R10.11 Right upper quadrant pain (principal)
CPT/HCPCS: 78227; A9537; J2805

== ENCOUNTER 2025-02-02 09:54 | Outpatient (CLI) | payer MEDICARE, SELFPAY ==
--- OUTSIDE RECORDS SUMMARY | 2025-02-02 09:56 | XMS_ITS | Data Portability ---
Author Organization [place] - [facility] & [place] [facility] ADMIN Address [address] [place] [address] Care Team Providers Care Assembler Type Bar And Segment Name Role Phone ORLIN JIMÉNEZ Referring Provider [phone] Assessment No assessment recorded. Plan of Treatment Reminders Order Date Submit Date Provider Last Modified By Organization Details Last Modified Time Details Appointments None recorded. Lab None recorded. Referral None recorded. Procedures None recorded. Surgeries colonoscop y (SURG) 2024 025 [email or web address] [facility] (Out[facility]), [address] [place] [address], [place], [address], 5 14:22:12 Imaging None recorded. Medication Orders diclofenac sodium 75 mg tablet,del ayed release [email or web address], [address], 5 07:05:47 Kenalog 10 mg/mL suspension for injection 2024 025 [email or web address] Not available 15:32:45 bupivacain e HCl 0.5 % (5 mg/mL) injection solution 2024 025 Not available 07:05:47 Patient TargetsNo targets recorded. 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 I have reviewed the patient's medical record, the medical decision making and treatment plan. [email or web address] Not available 10/20/2024 14:58:24 Reason for Referral None Reported. Results Created Date Observation Date Name Description Value Unit Range Abnormal Flag Note LastModifiedBy Organization Detail LastModifiedTime 08/30/19 25 07/22/2024 CT, face, w/o contr ast No observ ation record ed. [email or web address] Not Available 2024 15:11:57 09/13/19 25 09/13/2024 imagi ng inter preta tion No observ ation record ed. [email or web address] Not Available 2024 14:34:43 10/23/19 25 10/14/2024 CT, sinus es, w/o contr ast No observ ation record ed. Not Available 10/2024 16:01:17 11/02/19 25 10/14/2024 CT, sinus es, w/o contr ast No observ ation record ed. [facility] [address] [place], [place], [address], 11/04/2024 14:48:22 01/11/20 25 01/06/2025 elect dorothy callowaygr am, routi ne ECG, 12 leads min No observ ation record ed. [email or web address] [facility] (Lab Registration) [address] , [place], [address], 01/10/2025 10:17:46 Result Notes None recorded. Problems Name Problem SNOMED Code Status Onset Date Resolution Date Notes Provider Name and Address Organization Details Recorded Time Polyp of nasal cavity 558178628 Active 2024 MARIA ANTONIA Perez - [place] & [place] 5 08:35:36 Polyp of nasal sinus 46375300 Active 2024 MARIA ANTONIA Perez - [place] & [place] 5 08:39:34 Benign essential hypertensio n 2906321 Active 2020 Miri Brumfield-Pit akis [place] - [facility] [place] 5 14:53:58 Hearing loss 76049022 Active 2023 Miri Brumfield-P[place] akis [place] [facility] [place] 5 14:53:58 Senile osteoporosi s 48254531 Active 2020 Miri Brumfield-Pit akis [place] [facility] [place] 5 14:53:58 Lateral epicondylit is 321947654 Active 2011 Miri Brumfield-Pit akis [place] [facility] [place] 5 14:53:58 Gastroesoph ageal reflux disease 680965697 Active Miri Brumfield-Pit akis [place] [facility] [place] 5 14:53:58 Pain of ear 222339937 Active 2022 Miri Brumfield-P[place] akis [place] [facility] [place] 5 14:53:58 Depressive disorder 49403160 Active 2011 Miri Brumfield-P[place] akis [place] [facility] [place] 5 14:53:58 Pain of multiple joints 95667866 Active 2020 Miri Brumfield-P[place] akis [place] [facility] [place] 5 14:53:58 Neuropathy 171669275 Active 2023 Miri Brumfield-P[place] akis [place] [facility] [place] 5 14:53:58 History of calculus of kidney 543680764 Active 2020 Miri Brumfield-P[place] akis [place] [facility] [place] 5 14:53:58 Posterior auricular pain 482261687 Active 2022 Miri Brumfield-P[place] akis [place] [facility] [place] 5 14:53:58 Essential hypertensio n 53319507 Active 2006 Miri Brumfield-P[place] akis [place] [facility] [place] 5 14:53:58 Prediabetes 338474747 Active 2023 Miri Brumfield-P[place] akis [place] [facility] [place] 5 14:53:58 Cyst of ovary 32852054 Active 2020 Miri Brumfield-P[place] akis [place] [facility] [place] 5 14:53:58 Congestion of nasal sinus 75244748 Active 2022 Miri Brumfield-P[place] akis [place] [facility] [place] 5 14:53:58 Suspected COVID-19 016790903 Active 2020 Miri Brumfield-P[place] akis [place] [facility] [place] 5 14:53:58 Kidney stone 95633289 Active 2020 Miri Brumfield[place] akis [place] [facility] [place] 5 14:53:58 Thyroid nodule 378877531 Active 2020 Miri Brumfield[place] akis [place] [facility] [place] 5 14:53:58 Acquired hypothyroid is 369400939 Active Rach Lopez [place] [facility] [place] 3 10:37:47 Vitamin D deficiency 56165051 Active 2020 Miri Brumfield-P[place] akis [place] [facility] [place] 5 14:53:58 Mixed hyperlipide jeff 269218049 Active 2020 Miri Brumfield-[place] akis [place] [facility] [place] 5 14:53:58 Major depressive disorder 135502612 Active 2020 Miri Brumfield-P[place] akis [place] [facility] [place] 5 14:53:58 Obstructive sleep apnea syndrome 51185030 Active 2020 Miri Brumfield-[place] akis [place] [facility] [place] 5 14:53:58 Hypertensiv e disorder 38626917 Active Rach Lopez [place] [facility] [place] 3 10:39:04 Allergic rhinitis 22194006 Active 2008 Miri blair [place] [facility] [place] 5 14:53:58 Gastroesoph ageal reflux disease without esophagitis 689030951 Active 2020 Miri blair [place] [facility] [place] 5 14:53:58 Plantar fasciitis 611544603 Active 2012 Miri blair [place] [facility] [place] 5 14:53:58 Dizziness 028551664 Active 2022 JEROME SCHMIDT, AUD [address], [place], [address], [place] [facility] [place] 3 08:10:39 Sensorineur al hearing loss in left ear 2226232654402 9 Active 2022 JEROMEJamila HEATHTZ, AUD [address], [place], [address], [place] [facility] [place] 3 08:10:43 Problem Notes None recorded. Procedures Surgical History Date Name Laterality Status Provider Name and Address Organization Details Recorded Time 10/07/19 25 screening colonoscopy completed Susie Curtis [place] - [facility] - [place] & [place] 10/20/2024 14:52:40 09/01/19 25 Nasal Endoscopy completed Karla Romo MD [address] [facility], [place], [address], [place] - [facility] [place] [facility] [place] 09/06/2024 11:47:52 Colonoscopy completed Donita Novoa [facility] & [place] 09/15/2024 10:25:38 Imaging Results None recorded. Procedure Notes None recorded. Medical Equipment None Reported. Allergies Allergen ID Allergen Name Allergen Category Reaction Reaction Severity Criticality Documentation Date Start Date Code Code System Note Provider Name and Address Organization Details Recorded Time 97336 Augmentin medicatio n Not available Not available Not available 11/29/2022 44435 2 RxNorm fatig ue, zaps her Rach Lopez null, [place] - [facility] & [place] 3 10:35:53 21096 Keflex medicatio n Not available Not available Not available 11/29/202208431 7 RxNorm Rach Lopez null, [place] - [facility] & [place] 3 10:35:23 21657 Substance with sulfonami de structure and antibacte rial mechanism of action (substanc e) medicatio n Not available Not available Not available 11/29/20222007 23515 8003 SNOMED Miri Brumfield-Pit akis [facility], [place] - [facility] & [place] 5 14:53:44 Medications Name Sig Start Date [...] Available Not Available Nasonex 50 mcg/actuati on Grant 06/03 completed Not Available Not Available Not [...] Available Not Available No t Available Acid Child And Family Therapist (ranitidine ) 75 mg tablet take 1 [...] Available Not Available Not Available Fluarix Quad 5052-3450 (PF) 60 mcg (15 mcg x 4)/0.5 [...] Allergy 205.5 mcg (0.15 %) nasal spray Grant 1 spray twice a day by intranasa l route. 2023 active Not Available Not Available Not Avai lable Vitals Date Recorded Body height Body mass index (BMI) Body weight Heart rate Oxygen saturation Oxygen saturation in Arterial blood by Pulse oximetry Body temperature Systolic blood pressure Diastolic blood pressure Provider Name and Address Organization Details Last Updated DateTime 5 162.56 cm 31.5 kg/m2 71709.2 8 g 71 /min 96 % 96 % 97.1 [degF] 151 mm[Hg] 72 mm[Hg] Donita EM - [facility] & [place] 5 11:12:15 Date Recorded Body height Body mass index (BMI) Body weight Body temperature Provider Name and Address Organization Details Last Updated DateTime 09/20/2024 162.56 cm 31.6 kg/m2 83319 g 97.4 [degF] Farrukh EM [facility] & [place] 09/20/2024 15:10:36 Date Recorded Body height Heart rate Oxygen saturation Oxygen saturation in Arterial blood by Pulse oximetry Body temperature Heart rate Respiratory rate Systolic blood pressure Diastolic blood pressure Provider Name and Address Organization Details Last Updated DateTime 162.56 cm 62 /min 93 % 93 % 98.4 [degF] 62 /min 16 /min 132 mm[Hg] 82 mm[Hg] Susie Curtis MARIA ANTONIA [facility] & [place] 14:56:53 Date Recorded Body height Body mass index (BMI) Body weight Body temperature Provider Name and Address Organization Details Last Updated DateTime 11/22/2024 162.56 cm 31.6 kg/m2 58312 g 98.2 [degF] Farrukh EM [facility] & [place] 11/22/2024 15:00:41 Social History Question Answer Notes LastModified by [employer] Details LastModified Time Tobacco Smoking Status Former Smoker [facility] [place] 12/04/2022 13:18:09 Do You Have An Advance Directive? No Information not available 11/29/2022 Are You Blind Or Do You Have Difficulty Seeing? No Information not available 11/29/2022 What Was The Date Of Your Most Recent Tobacco Screening? 12/04/2022 Information not available 08/30/2024 Are You Passively Exposed To Smoke? Yes Information not available 11/29/2022 Sex: Unknown Functional Status Question Answer Note LastModified by Sawerlyizat ion Details LastModified Time Do you use [...] anxious, or unable to sleep at night)? [id number] Information not available 11/29/2022 Family History Relationship [...] available 2022 10:42:24 Medical History Condition Response Arthritis Y Hearing Loss Y Reflux/GERD Y Sleep Disorder Y Acid Reflux (GERD) Y Back Problems Y Thyroid Problems Y Hypertension Y Depression Y Gynecological HistoryNo gynecological history recorded. Obstetrics History GPAL:G 0 P 0 0 0 0 Immunizations Vaccine Type Date Status Note Provider Nam e and Address Organization Details Recorded Time Influenza, split virus, quadrivalent, preservative 6 completed Rach daniels, [place] - [facility] & [place] 11/29/2022 10:32:33 Influenza, split virus, quadrivalent, preservative 8 completed Devora Lfor [place], [place] [facility] [place] 11/08/2024 15:32:12 Influenza, split virus, quadrivalent, preservative 6 completed Devora Flor [place] [facility] [place] 11/08/2024 15:32:12 Influenza, recombinant, quadrivalent, PF 9 completed Devora Flor [place] [facility] [place] 11/08/2024 15:32:12 Influenza, high-dose, quadrivalent, PF 0 completed Devora [place] [facility] [place] 11/08/2024 15:32:12 Influenza, high-dose, quadrivalent, PF 1 completed Devora [place] [facility] [place] 11/08/2024 15:32:12 COVID-19 vaccine, vector-nr, rS-Ad26, PF, 0.5 mL 1 completed Devora [place] [facility] [place] 11/08/2024 15:32:12 pneumococcal polysaccharide PPV23 6 completed Devora Flor [place] [facility] [place] 11/08/2024 15:32:12 influenza, unspecified formulation 3 completed Devora Flor [place] [facility] [place] 11/08/2024 15:32:12 Tdap 6 completed Devora Flor [place] [facility] [place] 11/08/2024 15:32:12 Tdap 7 completed Devora Flor [place] [facility] [place] 11/08/2024 15:32:12 zoster live 6 completed Devora Flor [place] [facility] [place] 11/08/2024 15:32:12 Influenza, split virus, quadrivalent, PF 7 completed Dev[place] [facility] [place] 11/08/2024 15:32:12 Influenza, split virus, quadrivalent, preservative 1 completed Miri Brumfield-Pitakis [place] [facility] [place] 10/28/2024 14:54:10 Influenza, split virus, quadrivalent, preservative 9 completed Miri Brumfield-Pitakis [place] [facility] [place] 10/28/2024 14:54:11 Influenza, high-dose, quadrivalent, PF 0 completed Miri Brumfield-Pitakis [place] [facility] [place] 10/28/2024 14:54:11 Influenza, high-dose, quadrivalent, PF 3 completed Devora [place] [facility] [place] 11/08/2024 15:32:12 Influenza, high-dose, quadrivalent, PF 4 completed Dev[place] [facility] [place] 11/08/2024 15:32:12 COVID-19, mRNA, LNP-S, PF, 100 mcg/0.5mL dose or 50 mcg/0.25mL dose 1 completed Miri Brumfield-Karlakis [place] [facility] [place] 10/28/2024 14:54:11 RSV, recombinant, protein subunit RSVpreF, adjuvant reconstituted, 0.5 mL, PF 3 completed Devora Flor [place] [facility] [place] 11/08/2024 15:32:12 influenza, unspecified formulation 6 completed Devora Flor [place] [facility] [place] 11/08/2024 15:32:12 influenza, unspecified formulation 9 completed Devora Flor [place] [facility] [place] 11/08/2024 15:32:12 Novel [id number], all formulations 0 completed Devora Flor [place] [facility] [place] 11/08/2024 15:32:12 Pneumococcal conjugate PCV 13 11/05/200 7 completed Devora Ray null, MARIA ANTONIA - [facility] - [place] & [place] 11/08/2024 15:32:12 zoster live 6 completed Miri Ramirez null, MARIA ANTONIA - [facility] - [place] & [place] 10/28/2024 14:54:11 Past Encounters Encounter ID Performer Location Encounter Start Date Encounter Closed Date Diagnosis/Indication Diagnosis SNOMED-CT Code Diagnosis ICD10 Code Diagnosis Note [id number] Shlomo Jaramillo MD [facility] [address] [place] [address] 10/17/2022 08:43:36 10/17/2022 09:01:05 Lumbar radiculitis 7315553607 2387347 M54.16 [id number] Papo Pelayo MD [address] [place] [address] [place] [address] 8 12/04/2022 13:05:58 12/04/2022 14:07:16 Dizziness 850231353 R42 Hearing loss 87228662 H9 1.90 [id number] Papo Pelayo MD [address] [place] [address] [place], [place] [address] 01/16/2023 07:52:56 01/16/2023 14:03:43 Dizziness 254861594 R42 Asymmetric al sensorineural hearing loss 082968244 H90.5 [id number] RANDY BOYD [address] [place] [address] [place], [place] [address] 01/16/2023 07:46:51 01/16/2023 07:47:05 Sensorineural hearing loss in left ear 3997526658 9109 H90.42 Dizziness 860040410 R42 [id number] RANDY BOYD [facility] [address] [place] [address] [place], [place] [address] 11/26/2023 12:39:07 11/26/2023 12:40:21 Sensorineural hearing loss in left ear 9494458394 9109 H90.42 [id number] Karla Romo MD [facility] [place] [id number] [facility] [address] 09/01/2024 10:32:20 09/01/2024 11:56:26 Polyp of nasal cavity 073438188 J33.0 Nasal congestion 5826532 0 R09.81 Loss of se nse of smell 28994123 R43.0 Chronic re current sinusitis 531755631 J32.9 [id number] MD VINCE [facility] [address] [place] [address] 8 09/15/2024 10:16:11 09/15/2024 11:38:18 Family history of cancer of colon 442660686 Z80.0 Colonoscop y. The benefits and risks of the procedure were explained to the patient. [id number] Karla Romo MD [facility] [address] [place] [address] [place] [address] 8 09/20/2024 14:56:38 09/20/2024 15:46:27 Polyp of nasal cavity 018688074 J33.0 Nasal congestion 3193237 0 R09.81 Allergic rhinitis 344560 04 J30.9 [id number] CARLTON Mcguire [facility] [address] [place] [address] 8 10/20/2024 14:36:52 10/20/2024 14:57:03 Tubular adenomatous polyp of colon 969225194 D12.6 Diverticular disease 397 977287 K57.90 [id number] MD VINCE Miranda [facility] [address] [place] [address] 10/28/2024 14:10:24 10/28/2024 15:25:24 Subacromial impingement 630034154 M75.41 [id number] Karla Romo MD [facility] [address] [place] [address] [place], [place] [address] 8 11/22/2024 14:35:11 11/22/2024 15:38:23 Polyp of nasal cavity and/or nasal sinus 942485366 J33.9 Chronic bi lateral maxillary sinusitis 5368284500 7658542 J32.0 Chronic et hmoidal sinusitis 68366210 J32.2 Health Concerns Section Related Observation LastModified by Organization Detai ls LastModified Time None Recorded Concern Status LastModified by Organization Details LastModified Time None Recorded Advance Directives Directive N: Payers Insurance Date Sequence Insurance Name Policy Number Policy Marrero Covered Member ID Marrero Member ID Guarantor Name 11/19/2024 1 [place]MEDICARE REPLACEMENT HMO) [id number] Mary C Tuel [id number] Mary C Tuel 02/21/2024 [employer] Mary C Tuel MARY TUEL MARY TUEL Mary C Tuel 07/22/2024 2 [employer] (MEDICAID REPLACEMENT - HMO) [id number] Mary C Tuel [id number] Mary C Tuel 03/14/2020 1 [employer] (MEDICARE) Mary C Tuel [id number] Mary C Tuel 07/22/2024 1 [facility] (MEDICARE REPLACEMENT/ADVA NTAGE - HMO) [id number] Mary C Tuel [id number] Mary C Tuel Notes Date Note Type [...] history of colon cancer. Teo Pickens MD [address] [place] [address],[address], [place], [address], [place] - [place] - [place] & [place] 09/15/2024 12:00:34 09/20/2024 text/html 09/01/24-Patient is here [...] in her nasal congestion. Karla Romo MD [address] [place] [address], [place], [address], [facility] & [place] 09/22/2024 13:21:14 10/20/2024 text/html Nir returns today for colonoscopy follow-up which was done 10/06/2024. She has a longstanding problem with constipation and she can not tolerate fiber supplements. I recommended that she follow-up with her PCP for other therapies. Her colonoscopy showed diverticula and also polyps which pathology showed were tubular adenomas. CARLTON Mcguire [address] [place] [address],[address], [place], [address], [facility] & [place] 10/20/2024 14:58:37 10/28/2024 text/html 69 y/o female [...] @ --waiting for report Shlomo Jaramillo MD [address] [place] [address] Drive,[address], [place], [address], [facility] & [place] 10/29/2024 07:08:09 11/22/2024 text/html 09/01/24-Patient is here [...] congested than the left. Karla Romo MD [address], [place], [address], [facility] - [place] & [place] 11/22/2024 15:36:44 OBGyn Episode No OBEpisode recorded.
--- OUTSIDE RECORDS SUMMARY | 2025-02-02 09:56 | XMS_ITS | Continuity of Care Document ---
Author Organization [facility] Address [address] [place] [id number] Assessment No assessment recorded. Plan of Treatment Reminders Order Date Submit Date Provider Last Modified By Organization Details Last Modified Time Details Appointments Medicare AWE 40mins 2024 11:00A M Bassem Bobo APRN Not available Not available Not available Lab drug screen, urine 2024 025 [facility], [address] [place] [address], [phone], 01/06/2025 11:23:16 Referral cardiolog ist referral - abnormal ekg, needs surgery clearance 2024 025 KAY Cooney MD, [address], [place], [address], 01/18/2025 09:23:17 Procedures None recorded. Surgeries None recorded. Imaging electroca rdiogram 2024 025 [facility], [address] [place] [address], [phone], 01/06/2025 13:32:15 XR, chest, 2 view 2024 025 [facility], [address] [place] [address] , [place], [address], 01/11/2025 13:54:20 NM, hepatobil iary scan, w/pharm 2024 025 K[facility], [address], [place], [address], 01/17/2025 14:29:08 Medication Orders gabapenti n 300 mg capsule 2024 025 [facility], [address] [place] [address], [place], [address], 01/06/2025 11:23:24 Patient TargetsNo targets recorded. Patient InstructionsNo instructions recorded. 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 [address], [address], 12/13/2024 12:03:03 01/07/20 25 01/06/2025 elect rocar diogr am No observ ation record ed. [address], [address], 01/06/2025 13:32:21 01/07/20 25 01/06/2025 elect rocar diogr am No observ ation record ed. [email or web address] [address], [address], 01/10/2025 09:30:20 01/12/20 25 XR, chest , 2 view No observ ation record ed. [email or web address] [address] , [place], [address], 01/14/2025 11:45:38 01/14/20 25 01/12/2025 NM, myoca rdial perfu chato scan, w/ stres s No observ ation record ed. [facility] [address], [place], [address], 01/13/2025 16:15:40 01/14/20 25 01/12/2025 cardi ac stres s test No observ ation record ed. [facility] [address], [place], [place], [address], 01/13/2025 16:15:40 01/18/20 25 01/12/2025 US, doppl er echoc ardio gram, w/ color flow No observ ation record ed. [facility] [address], [place], [address], 01/17/2025 09:07:35 01/18/20 25 01/17/2025 NM, hepat obili leon scan, w/pha rm No observ ation record ed. [facility] [address], [place], [address], 01/21/2025 11:20:31 Result Notes None recorded. Problems Name Problem SNOMED Code Status Onset Date Resolution Date Notes Provider Name and Address Organization Details Recorded Time Allergic rhinitis 65889556 Active 2008 Evelyn Nair [place], [place] - [facility] 6 13:36:30 Depressive disorder 82029324 Active 2011 Bassem Bobo, [employer] [address], [place], [address], [place] - [facility] 4 08:53:31 Gastroesophage al reflux disease 675830962 Active Bassem Bobo, [employer] [address], [place], [address], [place] - [facility] 4 08:53:43 Essential hypertension 29652275 Active 2006 Bassem Bobo, [employer] [address], [place], [address], [place] - [facility] 4 08:53:34 Acquired hypothyroidism 703270280 Active 09/2015 Bassem Bobo, [employer] [address], [place], [address], [place] [facility] 4 08:53:08 Lateral epicondylitis 950399829 Active 2011 Evelyn Nair null, [place] - [facility] 6 13:38:29 Plantar fasciitis 005388272 Active 2012 Evelyn Nair [place], [place] - [facility] 6 13:38:41 Suspected COVID-19 645012167 Active 2020 Cynthia Grundy null, [place] - [facility] 1 16:34:16 Gastroesophage al reflux disease without esophagitis 704457504 Active 2020 Bassem Bobo, [employer] [address], [place], [address], [place] [facility] 4 08:54:44 Vitamin D deficiency 14688835 Active 2020 Bassem Bobo, [employer] [address], [place], [address], [place] [facility] 4 08:54:23 Major depressive disorder 029995483 Active 2020 Bassem Bobo, [employer] [address], [place], [address], [place] [facility] 4 08:53:56 Mixed hyperlipidemia 390294754 Active 2020 Bassem Bobo, [employer] [address], [place], [address], [place] [facility] 4 08:54:03 Pain of multiple joints 80591052 Active 2020 Bassem Bobo, [employer] [address], [place], [address], [place] [facility] 4 08:54:05 Thyroid nodule 662282333 Active 2020 Bassem Bobo, [employer] [address], [place], [address], [place] - [facility] 4 08:54:28 Benign essential hypertension 3314943 Active 2020 Bassem Bobo, [employer] [address], [place], [address], [place] [facility] 4 08:53:22 Obstructive sleep apnea syndrome 50234956 Active 2020 Bassem Bobo, [employer] [address], [place], [address], [place] - [facility] 4 08:54:20 Senile osteoporosis 57847889 Active 2020 Bassem Hughesanabelxavier, [employer] [address], [place], [address], [place] - [facility] 4 08:54:34 Cyst of ovary 57634363 Active 2020 Ali Peggy null, [place] - [facility] 1 22:21:36 Kidney stone 99904964 Active 2020 Ali Peggy null, [place] - [facility] 1 15:24:12 History of calculus of kidney 558750844 Active 2020 Mikki Kraus, [employer] [address], [place], [address], [place] - [facility] 1 09:13:36 Congestion of nasal sinus 60247023 Active 2022 Mc Gray, [employer] [address], [place], [address], [place] - [facility] 3 08:11:11 Pain of ear 384632085 Active 2022 Mc Gray, [employer] [address], [place], [address], [place] - [facility] 3 10:13:38 Posterior auricular pain 101851278 Active 2022 Mc Gray, [employer] [address], [place], [address], [place] - [facility] 3 10:32:46 Hearing loss 05891129 Active 2023 Samantha العراقي null, [place] - [facility] 4 09:45:45 Prediabetes 316140541 Active 2023 Bassem Bobo APRN [address], [place], [address], [place] - [facility] 4 08:56:12 Neuropathy 409682773 Active 2023 Bassem Bobo APRN [address], [place], [address], [place] - [facility] 4 08:57:26 Problem Notes None recorded. Procedures Surgical History Date Name Laterality Status Provider Name and Address Organization Details Recorded Time 10/07/19 25 colonoscopy completed Aislinn Cummings RN [address], [place], [address], [facility] - [facility] 11/23/2024 11:41:02 11/15/19 23 Medication Reconcilliation completed Alma Rojas [facility] [place] 11/14/2022 11:24:49 11/09/19 23 Removal of foreign body in ear canal completed Bassem Bobo APRN [address], [place], [address], [facility] - [facility] 11/08/2022 10:01:22 05/24/20 21 Advance Care Planning completed Mandie Duffy RN [address], [place], [address], [facility] - [facility] 01/02/2021 13:26:20 05/24/20 21 Functional Status Assessed completed Mandie Duffy RN [address], [place], [address], [facility] - [facility] 01/02/2021 13:25:52 05/10/20 20 Diastolic B/P greater than or equal to 90 mm Hg completed Ike Olson [place] - [facility] 05/10/2020 11:29:50 05/10/20 20 Systolic B/P greater than or equal to 140 mm Hg completed Ike Olson [place] - [facility] 05/10/2020 11:29:40 11/10/19 20 Diastolic B/P 80-89 mm Hg completed Ike Olson [place] - [facility] 11/10/2019 16:38:52 11/10/19 20 Systolic [...] Name and Address Organization Details Recorded Time 298298 Augmentin medicatio n Not available Not available Not available 11/09/2018 61796 2 RxNorm fatig ue Ike Olson [facility] [place], [place] - [facility] 9 13:32:16 881877 Keflex medicatio n nausea Not available low 11/26/2020 82971 7 RxNorm unkno wn Bassem Bobo, [employer] [address], [place], [address], [place] - [facility] 5 11:57:38 36440 Substance with sulfonami de structure and antibacte rial mechanism of action (substanc e) medicatio n Not available Not available Not available 05/10/20162007 12021 8003 SNOMED React ion: Hives , nause a; Comme nt: Sulfo namid es; Not Available [facility] 6 09:39:39 Medications Name Sig Start Date [...] nued on: 08/16/19 14 12:09PM; User: isreal Swenson on: 06/11/20 14;Indic ation: Estefani chato - (07.4019 );Isa Chaparro fied: 06/16/20 13 11:46AM Not [...] Nexium 40 mg oral capsule, delayed release( /SUSANNAH);c omment: changed to protonix ;Prescri be Status: Prescrib ed on: 11/18/19 14 3:31PM;D iscontin ued Status: Disconti nued on: 12/15/19 14 9:26AM;U ser: [email or web address]; Est. Completi on: 05/16/20 14;Indic ation: Gastroes ophageal Reflux - (5308 );Phar Shankar fied: 11/18/19 14 3:31PM Not Available [...] nued on: 01/12/20 16 10:29AM; User: maile StrongEst. Completi on: 11/19/19 16;Indic ation: Bacteria l [...] 14;Indic ation: Gastroes ophageal Reflux - (5308 );Phar Shankar fied: 09/09/19 14 10:23AM Not Available Not [...] pantopraz ole 40 mg tablet,de layed release Take 1 tablet by mouth once daily 2024 active Not Available Not Available Not Avai lable oseltamiv ir 75 mg capsule TAKE ONE [...] 11:01AM; User: john Romero on: Pain - (21.7475 00) Not Available Not Available Not Available gabapenti n 300 mg capsule TAKE ONE (1) CAPSULE EVERY DAY BY ORAL ROUTE. active Not Available Not Available No t Available omeprazol e 20 mg capsule,d elayed release take 1 capsule (20 mg) by oral route once daily before a meal 05/05 completed omeprazo le 20 mg oral capsule, delayed release( DR/EC);c omment: taking otc;Esvin rded Status: Recorded on: [...] on: 08/30/19 10 1:16PM;U ser: dary ;Est. Messi on: 04/14/20 09 Not Available Not Available [...] Available Not Available Nasonex 50 mcg/actua tion [place] 06/03 completed Not Available Not Available Not [...] Not Available Not Available Not Available Acid Dielectric Machine Operator (ranitidi ne) 75 mg tablet take 1 tablet (75 mg) by oral route once daily with a glass of water 11/17 completed Acid Dielectric Machine Operator (ranitid ine) 75 mg oral tablet;R ecorded [...] User: bunny; Est. Completi on: 07/06/20 16;Pharm acyVerif ied: 01/08/20 16 11:09AM Not Available Not [...] Aciphex 20 mg oral tablet,d elayed release (/SUSANNAH); comment: Changed to Prevacid ;Prescri be Status: Prescrib ed on: 09/01/19 14 12:55PM; Disconti nued Status: Disconti nued on: 09/09/19 14 10:23AM; User: [email or web address]; EstJoann Completi on: 02/29/20 14;Indic ation: Gastroes ophageal [...] Available Not Available Not Available Fluarix Quad 6612-8806 (PF) 60 mcg (15 mcg x 4)/0.5 [...] Allergy 205.5 mcg (0.15 %) nasal spray [place] 1 spray twice a day by intranas al route. 2023 active Not Available Not Available Not Avai lable Vitals Date Recorded Body height Respiratory rate Body mass index (BMI) Body weight Heart rate Oxygen saturation Oxygen saturation in Arterial blood by Pulse oximetry Body temperature Systolic And Diastolic Provider Name and Address Organization Details Last Updated DateTime 5 162.56 cm 18 /min 31.1 kg/m2 26742.2 2 g 78 /min 94 % 94 % 97.9 [degF] 140/84 mm[Hg] Samantha العراقي [place] - [facility] 5 10:45:36 Social History Question Answer Notes LastModified by Organizat ion Details LastModified Time Tobacco Smoking Status Former Smoker Evelny Nair null, [place] - [facility] 05/29/2016 13:38:48 [...] Or The Highest Degree You Have Received? DJ03057-1 Information not available 05/22/2023 Swimming/diving No Informati [...] Do You Have A Medical Power Of Veterinary Technician? No Information not available 01/06/2025 What Was [...] anxious, or unable to sleep at night)? [id number] Information not available 05/22/2023 Do you have difficulty concentrating, remembering or making decisions? No Information no t available 05/22/2023 Family History Relationship Description Onset Age of this Age Resolved Age Notes LastModified by Organization Details LastModified Time Paternal Grandmother Arthritis [email or web address] Not available 1 13:40:32 Sister Asthma [email or web address] Not available 05/29/2016 13:40:43 Sister Rheumatoid arthritis [email or web address] Not available 2022 11:56:42 Brother Bipolar disorder [id number] Not available 2022 11:56:42 Maternal Grandmother Malignant tumor of breast [email or web address] Not available 05/29 13:41:05 Unspecified Relation Malignant tumor of colon Aunt [email or web address] Not available 05/29 13:41:24 Unspecified Relation Hypercholest erolemia [email or web address] Not available 05/29 13:42:45 Mother Corneal transplant [email or web address] Not available 11/20 11:56:42 Mother Diabetes mellitus Type II [email or web address] Not available 05/29/2016 13:42:32 Mother Hypertensive disorder Not available 05/29 13:43:05 Medical History Condition Response Kidney Stones Y Depression Y Arthritis Y Ear or Hearing Problems Y Hypothyroidism Y Allergies/Hayfever Y Thyroid Problems Y Hypertension Y Gynecological [...] Recorded Time Tdap 017 completed Not Available [facility] 08/[facility] 03:54:34 Pneumococcal conjugate PCV 13 007 completed Samantha Stears null, [place] - [facility] 09/19/2023 11:45:02 influenza, unspecified formulation 009 completed Samantha Stears [place], [place] - [facility] 09/19/2023 11:45:02 influenza, unspecified formulation 013 completed Not Available [facility] 09/04/2019 02:21:29 influenza, unspecified formulation 016 completed Samantha Stears [place], [place] - [facility] 09/19/2023 11:45:02 Novel [id number], all formulations 010 completed Samantha Stears [place], [place] - [facility] 09/19/2023 11:45:02 Influenza, split virus, quadrivalent, preservative 016 completed Not Available [facility] 08/21/2019 03:54:18 Influenza, high-dose, quadrivalent, PF 023 completed Ike Olson null, [place] - [facility] 05/08/2023 11:45:58 pneumococcal polysaccharide PPV23 016 completed Not Available [facility] 02:21:58 zoster live 016 completed Samantha Stears null, [facility] [place] 09/19/2023 11:45:02 Influenza, high-dose, quadrivalent, PF 024 completed Alma Crystal null, [facility] [place] 06/08/2024 14:56:51 Influenza, split virus, quadrivalent, preservative 019 completed Samantha Stears null, [facility] [place] 09/19/2023 11:45:01 Influenza, split virus, quadrivalent, preservative 018 completed Not Available [facility] 08/21/2019 03:55:14 Influenza, high-dose, quadrivalent, PF 020 completed Samantha Stears null, [facility] [place] 09/19/2023 11:45:01 Influenza, split virus, quadrivalent, preservative 021 completed Samantha Stears null, [facility] [place] 09/19/2023 11:45:01 COVID-19, mRNA, LNP-S, PF, 100 mcg/0.5mL dose or 50 mcg/0.25mL dose completed Samantha Stears null, [facility] [place] 09/19/2023 11:45:01 Influenza, split virus, quadrivalent, preservative 016 completed Alma Crystal null, [facility] [place] 10/17/2022 15:07:01 Influenza, recombinant, quadrivalent, PF 019 completed Alma Crystal null, [facility] [place] 10/17/2022 15:07:01 Influenza, high-dose, quadrivalent, PF 020 completed Alma Crystal null, [facility] [place] 10/17/2022 15:07:01 Influenza, high-dose, quadrivalent, PF 021 completed Alma Crystal null, [facility] [place] 10/17/2022 15:07:01 COVID-19 vaccine, vector-nr, rS-Ad26, PF, 0.5 mL completed Alma Crystal null, [facility] [place] 10/17/2022 15:07:01 Tdap 016 completed Alma Rojas null, [place] - [facility] 10/17/2022 15:07:01 zoster live 016 completed Alma Rojas [place] - [facility] 10/17/2022 15:07:01 Influenza, split virus, quadrivalent, PF 017 completed Alma Rojas [place], [place] - [facility] 10/17/2022 15:07:01 Influenza, split virus, quadrivalent, PF 019 cancelled patient objection Not Available [facility] 08/21/2019 03:56:06 RSV, recombinant, protein subunit RSVpreF, adjuvant reconstituted, 0.5 mL, PF 023 completed Samantha العراقي null, [facility] [place] 09/19/2023 11:45:01 Past Encounters Encounter ID Performer Location Encounter Start Date Encounter Closed Date Diagnosis/Indication Diagnosis SNOMED-CT Code Diagnosis ICD10 Code Diagnosis Note [id number] Bassem Bobo [address] [address] 12/13/2024 11:09:04 12/13/2024 12:02:57 Preoperative procedure 478803869 Z01.818 Body mass index 30+ - obesity 511147661 E66.9 31.3 Acute maxi llary sinusitis 46105272 J01.00 raising HOB, humidifier use, saline nasal spray, rest, encourage PO fluids and monitor hydration status, infection control measures.R ecommended acetaminop hen/ibupro fen PRN pain, feverFollo w-up as needed [id number] Bassem Bobo [employer] [address] [address] 01/06/2025 10:06:17 01/06/2025 11:31:56 Preoperative state 76939505 Z01.818 will need surgery clearance from cardiology also- pt report no cardiac hx Neuropathy 831351446 G62 .9 Pt compliant with plan of careKasper reviewedme dication compliance discussedL ast uds:01/06/25 Control substance agreement on file Long-term current use of drug therapy 024413373 Z79.899 Electrocar diogram abnormal 779093347 R94.31 Right uppe r quadrant pain 405461724 R10.11 Health Concerns Section Related Observation LastModified by Organization Detai ls LastModified Time None Recorded Concern Status LastModified by Organization Details LastModified Time None Recorded Payers Encounter Date Sequence Insurance Name Policy Number Policy Marrero Covered Member ID Marrero Member ID Guarantor Name 01/06/2025 1 [place]MEDIC[place]ACEMENT HMO) [id number] Caitlyn Barrera [id number] Caitlyn Barrera Notes Date Note Type Note Provider Name and Address Organization Details Recorded Time 01/06/2025 text/html 70 year old femcayetano vicente who presents to the office today for apre op H&P, ekg and labs for sinus surgery 01-14-[address] Romo at [facility] refill on gabapentin for neuropathyhas concerns of right upper quadrant pain Bassem Bobo, [employer] [address], [place], [address], [place] - [facility] 01/06/2025 11:28:56 OBGyn Episode No OBEpisode recorded.
--- OUTSIDE RECORDS SUMMARY | 2025-02-02 09:57 | XMS_ITS | Data Portability ---
Author Organization [facility] Address [address] [place] [id number] Assessment No assessment recorded. Plan of Treatment Reminders Order Date Submit Date Provider Last Modified By Organization Details Last Modified Time Details Appointments Medicare AWE 40mins 2024 11:00A M Bassem Bobo APRN Not available Not available Not available Lab drug screen, urine 2024 025 [facility], [address] [place] [address], [address], 01/06/2025 11:23:16 CBC w/ auto diff 2024 025 [facility], [address], [address], [place], [address], 01/07/2025 10:08:08 BMP, serum or plasma 2024 025 [facility], [address], [address], [place], [address], 01/07/2025 10:08:08 rapid SARS CoV + SARS CoV 2 Ag, QL IA, respirato ry specimen 2024 025 [facility], [address] [place] [address], [address], 12/13/2024 11:59:01 rapid strep group A, throat 2024 025 [facility], [address] [place] [address], [address], 12/13/2024 11:59:01 rapid flu (A+B) 2024 025 [facility], [address] [place] [address], [address], 12/13/2024 11:59:01 urinalysi s, dipstick 2023 024 [facility], [address] [place] [address], [address], 07/20/2024 12:11:58 TSH + free T4, serum 2023 024 [facility], [address], [address], [place], [address], 06/09/2024 08:12:58 lipid panel, serum 2023 024 [facility], [address], [address], [place], [address], 06/09/2024 08:12:59 drug screen, urine 2023 024 [facility], [address] [place] [address], [address], 06/08/2024 14:38:00 vitamin D, 25-hydrox y, total, serum 2023 024 [facility], [address], [address] [address], [place], [address], 06/09/2024 08:13:00 CMP, serum or plasma 2023 024 [facility], [address], [place] [address], [place], [address], 06/09/2024 08:12:59 magnesium , serum or plasma 2023 024 [facility], [address], [place] [address], [place], [address], 06/09/2024 08:13:00 vitamin B12 + folate, serum or blood 2023 024 [facility], [address], [address] [address], [place], [address], 06/09/2024 08:13:00 CBC w/ auto diff 2023 024 [facility], [address], [place] [address], [place], [address], 06/09/2024 08:12:59 iron + total iron-bind ing capacity (TIBC), serum 2023 024 [facility], [address], [address] [address], [place], [address], 06/09/2024 08:13:00 Referral cardiolog ist referral - abnormal ekg, needs surgery clearance 2024 025 KAY Cooney MD, [address], [place], [address], 01/18/2025 09:23:17 gastroent erologist referral 2023 024 bstears Teo Pickens MD, [address] [place] [address] , [address], [place], [address], 11/10/2024 11:09:56 Procedures None recorded. Surgeries None recorded. Imaging electroca rdiogram 2024 025 [facility], [address] [place], [address], 01/06/2025 13:32:15 XR, chest, 2 view 2024 025 [facility], [address] [place] [address] , [place], [address], 01/11/2025 13:54:20 NM, hepatobil iary scan, w/pharm 2024 025 [facility], [address], [place], [address], 01/17/2025 14:29:08 electroca rdiogram 2024 025 [facility], [address] [place], [address], 12/13/2024 12:03:03 US, gallbladd er 2023 024 [facility], [address] [place] [address] , [place], [address], 08/19/2024 08:15:38 CT, face, w/o contrast 2023 024 [facility], [address] [facility], [place], [address], 07/22/2024 10:27:26 XR, foot, 3 or more view - both feet 2023 024 [facility], [address] [place] [address] , [place], [address], 06/10/2024 11:39:57 XR, shoulder, 2 or more view 2023 024 [facility], [address] [place] [address] , [place], [address], 06/10/2024 11:39:34 Medication Orders gabapenti n 300 mg capsule 2024 025 [facility], [address] [place] [address], [place], [address], 01/06/2025 11:23:24 ceftriaxo ne 1 gram solution for injection 2024 025 [facility] Not available 01/06/2025 10:35:58 prednison e 20 mg tablet 2024 [facility], [address] [place] [address], [address], 12/23/2024 05:01:54 doxycycli ne hyclate 100 mg capsule 2024 025 [facility], [address] [place] [address], [address], 12/27/2024 05:01:54 Miralax 17 gram/dose oral powder 2023 [facility], [address] [place] [address], [address], 07/20/2024 12:12:05 amoxicill in 500 mg tablet 2023 025 [facility], [address] [place] [address], [address], 12/13/2024 11:15:38 prednison e 20 mg tablet 2023 025 [facility], [address] [place] [address], [address], 12/23/2024 05:01:54 Zithromax Z-Anjum 250 mg tablet 2023 024 [facility], [address] [place], [address], 01/06/2025 10:47:26 Astepro Allergy 205.5 mcg (0.15 %) nasal spray 2023 024 [facility], [address] [place] [address], [address], 06/28/2024 14:38:18 metoprolo l succinate ER 25 mg tablet,ex tended release 24 hr 2023 [facility], [address] [place], [address], 06/08/2024 13:42:36 gabapenti n 300 mg capsule 2023 [facility], [address] [place], [address], 06/08/2024 13:42:36 Patient TargetsNo targets recorded. Patient InstructionsNo instructions recorded. 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 El ectrocardiogram abnormal abnormal ekg, needs surgery clearance Referring Physician: Bassem Bobo [facility], Encounter Date: 01/06/2025 Results Created Date Observation Date Name Description Value Unit Range Abnormal Flag Note LastModifiedBy Organization Detail LastModifiedTime 05/10/2005/10/2024 rapid SARS CoV + SARS CoV 2 Ag, QL IA, respi rator y speci men SARS CoV antigen Negati ve Not Available [address], [address], 05/07/2024 16:02:51 05/10/20 24 05/10/2024 rapid strep group A, throa t Strep negati ve Not Available [address], [address], 05/07/2024 16:02:36 05/10/20 24 05/10/2024 rapid strep group A, throa t Culture No Not Available [address], [address], 05/07/2024 16:02:36 05/10/20 24 05/10/2024 rapid flu (A+B) Flu negati ve Not Available [address], [address], 05/07/2024 16:02:59 05/10/20 24 05/10/2024 rapid flu (A+B) Type Both A & B Not Available [address], [address], 05/07/2024 16:02:59 06/08/20 24 06/09/2024 TSH+F REE T4 TSH 2.150 uIU/m L 0.450- 4.500 normal Not Available [facility] ([facility]) [address] [place], [address], 06/09/2024 08:12:58 06/08/2006/09/2024 TSH+F REE T4 T4,free(dire ct) 1.05 NG/dL 0.82-1 .77 normal Not Available [facility] ([facility]) [address] [place] [address], [address], 06/09/2024 08:12:58 06/08/20 24 06/09/2024 CBC WITH DIFFE RENTI AL/PL ATELE T WBC 5.6 x10e3 /uL 3.4-10 .8 normal Not Available [facility] ([facility]) [address] [place], [address], 06/09/2024 08:12:58 06/08/20 24 06/09/2024 CBC WITH DIFFE RENTI AL/PL ATELE T RBC 4.17 x10e6 /uL 3.77-5 .28 normal Not Available [facility] ([facility]) [address] [place] [address], [address], 06/09/2024 08:12:58 06/08/20 24 06/09/2024 CBC WITH DIFFE RENTI AL/PL ATELE T hemoglobin 13.3 g/dL 11.1-1 5.9 normal Not Available [facility] ([facility]) [address] [place], [address], 06/09/2024 08:12:58 06/08/20 24 06/09/2024 CBC WITH DIFFE RENTI AL/PL ATELE T hematocrit 39.7 % 34.0-4 6.6 normal Not Available [facility] ([facility]) [address] [place], [address], 06/09/2024 08:12:58 06/08/2006/09/2024 CBC WITH DIFFE RENTI AL/PL ATELE T MCV 95 fL 79-97 normal Not Available [facility] ([facility]) [address] [facility], [place], [address], 06/09/2024 08:12:58 06/08/20 24 06/09/2024 CBC WITH DIFFE RENTI AL/PL ATELE T MCH 31.9 pg 26.6-3 3.0 normal Not Available [facility] ([facility]) [address] [place], [address], 06/09/2024 08:12:58 06/08/20 24 06/09/2024 CBC WITH DIFFE RENTI AL/PL ATELE T MCHC 33.5 g/dL 31.5-3 5.7 normal Not Available [facility] ([facility]) [address] [place], [address], 06/09/2024 08:12:58 06/08/20 24 06/09/2024 CBC WITH DIFFE RENTI AL/PL ATELE T RDW 12.8 % 11.7-1 5.4 Not Available [facility] ([facility]) [address] [place], [address], 06/09/2024 08:12:58 06/08/20 24 06/09/2024 CBC WITH DIFFE RENTI AL/PL ATELE T platelets 296 x10e3 /uL 150-45 0 normal Not Available [facility] ([facility]) [address] [facility], [place], [address], 06/09/2024 08:12:58 06/08/20 24 06/09/2024 CBC WITH DIFFE RENTI AL/PL ATELE T neutrophils 42 % not estab. normal Not Available [facility] ([facility]) [address] [facility], [place], [address], 06/09/2024 08:12:58 06/08/20 24 06/09/2024 CBC WITH DIFFE RENTI AL/PL ATELE T lymphs 42 % not estab. normal Not Available [facility] ([facility]) [address] [facility], [place], [address], 06/09/2024 08:12:58 06/08/20 24 06/09/2024 CBC WITH DIFFE RENTI AL/PL ATELE T monocytes 9 % not estab. normal Not Available [facility] ([facility]) [address] [facility], [place], [address], 06/09/2024 08:12:58 06/08/20 24 06/09/2024 CBC WITH DIFFE RENTI AL/PL ATELE T eos 5 % not estab. normal Not Available [facility] ([facility]) [address] [facility], [place], [address], 06/09/2024 08:12:58 06/08/20 24 06/09/2024 CBC WITH DIFFE RENTI AL/PL ATELE T basos 1 % not estab. 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 0 normal Not Available [facility] ([facility]) [address] [place], [address], 06/09/2024 08:12:58 06/08/20 24 06/09/2024 CBC WITH DIFFE RENTI AL/PL ATELE T lymphs (absolute) 2.4 x10e3 /uL 0.7-3. 1 normal Not Available [facility] ([facility]) [address] [place], [address], 06/09/2024 08:12:58 06/08/20 24 06/09/2024 CBC WITH DIFFE RENTI AL/PL ATELE T monocytes(ab solute) 0.5 x10e3 /uL 0.1-0. 9 normal Not Available [facility] ([facility]) [address] [place], [address], 06/09/2024 08:12:58 06/08/20 24 06/09/2024 CBC WITH DIFFE RENTI AL/PL ATELE T eos (absolute) 0.3 x10e3 /uL 0.0-0. 4 normal Not Available [facility] ([facility]) [address] [place], [address], 06/09/2024 08:12:58 06/08/20 24 06/09/2024 CBC WITH DIFFE RENTI AL/PL ATELE T baso (absolute) 0.1 x10e3 /uL 0.0-0. 2 normal Not Available [facility] ([facility]) [address] [place], [address], 06/09/2024 08:12:58 06/08/20 24 06/09/2024 CBC WITH DIFFE RENTI AL/PL ATELE T immature granulocytes 1 % not estab. Not Available [facility] ([facility]) [address] [facility], [place], [address], 06/09/2024 08:12:58 06/08/20 24 06/09/2024 CBC WITH DIFFE RENTI AL/PL ATELE T immature grans (abs) 0.0 x10e3 /uL 0.0-0. 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 METAB OLIC PANEL (14) glucose 149 mg/dL 70-99 above high normal Not Available [facility] ([facility]) [address] [facility] [place], [address], 06/09/2024 08:12:59 06/08/20 24 06/09/2024 COMP. METAB OLIC PANEL (14) BUN 12 mg/dL 8-27 normal Not Available [facility] ([facility]) [address] [facility] [place], [address], 06/09/2024 08:12:59 06/08/20 24 06/09/2024 COMP. METAB OLIC PANEL (14) creatinine 0.78 mg/dL 0.57-1 .00 normal Not Available [facility] ([facility]) [address] [place], [address], 06/09/2024 08:12:59 06/08/20 24 06/09/2024 COMP. METAB OLIC PANEL (14) eGFR 82 mL/mi n/1.7 3 >59 normal Not Available [facility] ([facility]) [address], [place], [address], 06/09/2024 08:12:59 06/08/20 24 06/09/2024 COMP. METAB OLIC PANEL (14) BUN/creatini ne ratio 15 12-28 normal Not Available [facility] ([facility]) [address] [place], [address], 06/09/2024 08:12:59 06/08/20 24 06/09/2024 COMP. METAB OLIC PANEL (14) sodium 138 mmol/ L 134-14 4 normal Not Available [facility] ([facility]) [address] [place], [place], [address], 06/09/2024 08:12:59 06/08/20 24 06/09/2024 COMP. METAB OLIC PANEL (14) potassium 4.1 mmol/ L 3.5-5. 2 normal Not Available [facility] ([facility]) [address], [place], [address], 06/09/2024 08:12:59 06/08/20 24 06/09/2024 COMP. METAB OLIC PANEL (14) chloride 102 mmol/ L 96-106 normal Not Available [facility] ([facility]) [address] [place], [place], [id number], 06/09/2024 08:12:59 06/08/20 24 06/09/2024 COMP. METAB OLIC PANEL (14) carbon dioxide, total 23 mmol/ L 20-29 normal Not Available [facility] ([facility]) [address] [place], [place], [address], 06/09/2024 08:12:59 06/08/20 24 06/09/2024 COMP. METAB OLIC PANEL (14) calcium 9.4 mg/dL 8.7-10 .3 normal Not Available [facility] ([facility]) [address] [place], [id number], 06/09/2024 08:12:59 06/08/20 24 06/09/2024 COMP. METAB OLIC PANEL (14) protein, total 6.6 g/dL 6.0-8. 5 normal Not Available [facility] ([facility]) [address] [place], [id number], 06/09/2024 08:12:59 06/08/2006/09/2024 COMP. METAB OLIC PANEL (14) albumin 4.0 g/dL 3.9-4. 9 normal Not Available [facility] ([facility]) [address] [place], [id number], 06/09/2024 08:12:59 06/08/20 24 06/09/2024 COMP. METAB OLIC PANEL (14) globulin, total 2.6 g/dL 1.5-4. 5 Not Available [facility] ([facility]) [address] [place], [id number], 06/09/2024 08:12:59 06/08/20 24 06/09/2024 COMP. METAB OLIC PANEL (14) bilirubin, total 0.2 mg/dL 0.0-1. 2 normal Not Available [facility] ([facility]) [address] [place], [id number], 06/09/2024 08:12:59 06/08/2006/09/2024 COMP. METAB OLIC PANEL (14) alkaline phosphatase 94 IU/L 44-121 normal Not Available [facility] ([facility]) [address] [place], [address], 06/09/2024 08:12:59 06/08/20 24 06/09/2024 COMP. METAB OLIC PANEL (14) AST (SGOT) 32 IU/L 0-40 normal Not Available [facility] ([facility]) [address] [facility] [place], [address], 06/09/2024 08:12:59 06/08/20 24 06/09/2024 COMP. METAB OLIC PANEL (14) ALT (SGPT) 30 IU/L 0-32 normal Not Available [facility] ([facility]) [address] [facility] [place], [address], 06/09/2024 08:12:59 06/08/20 24 06/09/2024 LIPID PANEL cholesterol, total 183 mg/dL 100-19 9 normal Not Available [facility] ([facility]) [address] [facility] [place], [address], 06/09/2024 08:12:59 06/08/20 24 06/09/2024 LIPID PANEL triglyceride s 275 mg/dL 0-149 above high normal Not Available [facility] ([facility]) [address] [facility] [place], [address], 06/09/2024 08:12:59 06/08/20 24 06/09/2024 LIPID PANEL HDL cholesterol 38 mg/dL >39 below low normal Not Available [facility] ([facility]) [address] [facility] [place], [address], 06/09/2024 08:12:59 06/08/20 24 06/09/2024 LIPID PANEL VLDL cholesterol tavo 47 mg/dL 5-40 above high normal Not Available [facility] ([facility]) [address] [facility] [place], [address], 06/09/2024 08:12:59 06/08/20 24 06/09/2024 LIPID PANEL LDL chol calc ([facility]) 98 mg/dL 0-99 Not Available [facility]) [address] [facility] [place], [address], 06/09/2024 08:12:59 06/08/20 24 06/09/2024 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 PANEL 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 Not Available [facility] ([facility]) [address] [facility] [place], [address], 06/09/2024 08:12:59 06/08/20 24 06/09/2024 IRON AND TIBC iron bind.cap.(TI BC) 350 ug/dL 250-45 0 normal Not Available [facility] ([facility]) [address] [facility], [place], [address], 06/09/2024 08:12:59 06/08/20 24 06/09/2024 IRON AND TIBC UIBC 272 ug/dL 118-36 9 normal Not Available [facility] ([facility]) [address] [facility], [place], [address], 06/09/2024 08:12:59 06/08/20 24 06/09/2024 IRON AND TIBC iron 78 ug/dL 27-139 normal Not Available [facility] ([facility]) [address] [facility], [place], [address], 06/09/2024 08:12:59 06/08/20 24 06/09/2024 IRON AND TIBC iron saturation 22 % 15-55 normal Not Available [facility] ([facility]) [address] [facility] [place], [address], 06/09/2024 08:12:59 06/08/20 24 06/09/2024 VITAM IN B12 AND FOLAT E vitamin B12 566 pg/mL 232-12 45 normal Not Available [facility] ([facility]) [address] [facility] [place], [address], 06/09/2024 08:13:00 06/08/20 24 06/09/2024 VITAM IN B12 AND FOLAT E folate (folic acid), serum >20.0 NG/mL >3.0 A serum folat e huan ntrat ion of less than 3.1 ng/mL is consi dered to repre sent clini tavo defic iency . Not Available [facility] ([facility]) [address] [facility], [place], [address], 06/09/2024 08:13:00 06/08/20 24 06/09/2024 VITAM IN [...] Endoc [facility] Socie [facility] vitam in D insuf ficie ncy as a level betwe en 21 and 29 ng/mL (2). 1. IOM (Inst itute of Medic ine). 2009. Sammya ry refer ence mauro es for calci um and D. Jocelyne mendez [place]: The Natio nal [facility] Press . 2. Faustino mcclain MF, Maira welsh [place], Anastasia off-F errar i BHAT, et al. Evalu ation , treat ment, and preve ntion of vitam in D defic iency : an Endoc rine Socie ty clini tavo pract ice guide line. JCEM. 2010; 96(7) :1911 -30. Not Available [facility] ([facility]) [address] [facility], [place], [address], 06/09/2024 08:13:00 06/08/20 24 06/09/2024 MAGNE SIUM magnesium 2.1 mg/dL 1.6-2. 3 normal Not Available [facility] ([facility]) [address] [facility], [place], [address], 06/09/2024 08:13:00 06/08/20 24 06/08/2024 drug scree n, urine THC negati ve Not Available [address], [address], 06/08/2024 13:40:30 06/08/20 24 06/08/2024 drug scree n, urine TCA negati ve Not Available [address], [address], 06/08/2024 13:40:30 06/08/20 24 06/08/2024 drug scree n, urine BAR negati ve Not Available [address], [address], 06/08/2024 13:40:30 06/08/20 24 06/08/2024 drug scree n, urine BZO negati ve Not Available [address], [address], 06/08/2024 13:40:30 06/08/20 24 06/08/2024 drug scree n, urine MTD negati ve Not Available [address], [address], 06/08/2024 13:40:30 06/08/20 24 06/08/2024 drug scree n, urine AMP negati ve Not Available [address], [address], 06/08/2024 13:40:30 06/08/20 24 06/08/2024 drug scree n, urine MOP negati ve Not Available [address], [address], 06/08/2024 13:40:30 06/08/20 24 06/08/2024 drug scree n, urine OXY negati ve Not Available [address], [address], 06/08/2024 13:40:30 06/08/20 24 06/08/2024 drug scree n, urine MDMA negati ve Not Available [address], [address], 06/08/2024 13:40:30 06/08/20 24 06/08/2024 drug scree n, urine ZEFERINO negati ve Not Available [address], [address], 06/08/2024 13:40:30 06/08/20 24 06/08/2024 drug scree n, urine PCP negati ve Not Available [address], [address], 06/08/2024 13:40:30 06/08/20 24 06/08/2024 drug scree n, urine MET negati ve Not Available [address], [address], 06/08/2024 13:40:30 06/28/20 24 06/28/2024 HbA1c (hemo globi n A1c), blood HbA1C 6.4 % Not Available [address], [address], 06/10/2024 08:38:07 07/20/20 24 07/20/2024 urina lysis , dipst ick Leukocytes Negati ve Not Available [address], [address], 07/20/2024 09:17:46 07/20/20 24 07/20/2024 urina lysis , dipst ick Nitrite negati ve Not Available [address], [address], 07/20/2024 09:17:46 07/20/20 24 07/20/2024 urina lysis , dipst ick Urobilinogen .2 Not Available [facility] [address], [address], 07/20/2024 09:17:46 07/20/20 24 07/20/2024 urina lysis , dipst ick Protein Negati ve Not Available [address], [address], 07/20/2024 09:17:46 07/20/20 24 07/20/2024 urina lysis , dipst ick pH 5.5 Not Available [address], [address], 07/20/2024 09:17:46 07/20/20 24 07/20/2024 urina lysis , dipst ick Blood Non-He molyze d: Trace Not Available [address], [address], 07/20/2024 09:17:46 07/20/20 24 07/20/2024 urina lysis , dipst ick Specific [place] 1.025 Not Available [address], [address], 07/20/2024 09:17:46 07/20/20 24 07/20/2024 urina lysis , dipst ick Ketone Negati ve Not Available [address], [address], 07/20/2024 09:17:46 07/20/20 24 07/20/2024 urina lysis , dipst ick Bilirubin Negati ve Not Available [address], [address], 07/20/2024 09:17:46 07/20/20 24 07/20/2024 urina lysis , dipst ick Glucose Negati ve Not Available [address], [address], 07/20/2024 09:17:46 07/20/20 24 07/20/2024 urina lysis , dipst ick Appearance Cloudy Not Available [address], [address], 07/20/2024 09:17:46 07/20/20 24 07/20/2024 urina lysis , dipst ick Color Dark Yellow Not Available [address], [address], 07/20/2024 09:17:46 12/14/19 25 12/13/2024 rapid flu (A+B) Flu negati ve Not Available [address], [address], 12/13/2024 11:40:54 12/14/19 25 12/13/2024 rapid flu (A+B) Type Both A & B Not Available [address], [address], 12/13/2024 11:40:54 12/14/19 25 12/13/2024 rapid SARS CoV + SARS CoV 2 Ag, QL IA, respi rator y speci men SARS CoV antigen Negati ve Not Available [address], [address], 12/13/2024 11:40:00 12/14/19 25 12/13/2024 rapid strep group A, throa t Strep negati ve Not Available [address], [address], 12/13/2024 11:40:17 12/14/19 25 12/13/2024 rapid strep group A, throa t Culture No Not Available [address], [address], 12/13/2024 11:40:17 01/07/20 25 01/07/2025 CBC WITH DIFFE RENTI AL/PL ATELE T WBC 6.0 x10e3 /uL 3.4-10 .8 normal Not Available [facility] ([facility]) [address] [place], [address], 01/07/2025 10:08:08 01/07/20 25 01/07/2025 CBC WITH DIFFE RENTI AL/PL ATELE T RBC 4.36 x10e6 /uL 3.77-5 .28 normal Not Available [facility] ([facility]) [address] [place], [address], 01/07/2025 10:08:08 01/07/20 25 01/07/2025 CBC WITH DIFFE RENTI AL/PL ATELE T hemoglobin 13.4 g/dL 11.1-1 5.9 normal Not Available [facility] ([facility]) [address] [place], [address], 01/07/2025 10:08:08 01/07/20 25 01/07/2025 CBC WITH DIFFE RENTI AL/PL ATELE T hematocrit 42.6 % 34.0-4 6.6 normal Not Available [facility] ([facility]) [address] [place], [address], 01/07/2025 10:08:08 01/07/20 25 01/07/2025 CBC WITH DIFFE RENTI AL/PL ATELE T MCV 98 fL 79-97 above high normal Not Available [facility] ([facility]) [address] [place], [address], 01/07/2025 10:08:08 01/07/20 25 01/07/2025 CBC WITH DIFFE RENTI AL/PL ATELE T MCH 30.7 pg 26.6-3 3.0 normal Not Available [facility] ([facility]) [address] [facility], [place], [address], 01/07/2025 10:08:08 01/07/20 25 01/07/2025 CBC WITH DIFFE RENTI AL/PL ATELE T MCHC 31.5 g/dL 31.5-3 5.7 normal Not Available [facility] ([facility]) [address] [place], [address], 01/07/2025 10:08:08 01/07/20 25 01/07/2025 CBC WITH DIFFE RENTI AL/PL ATELE T RDW 12.5 % 11.7-1 5.4 Not Available [facility] ([facility]) [address] [facility], [place], [address], 01/07/2025 10:08:08 01/07/20 25 01/07/2025 CBC WITH DIFFE RENTI AL/PL ATELE T platelets 282 x10e3 /uL 150-45 0 normal Not Available [facility] ([facility]) [address] [facility], [place], [address], 01/07/2025 10:08:08 01/07/20 25 01/07/2025 CBC WITH DIFFE RENTI AL/PL ATELE T neutrophils 47 % not estab. normal Not Available [facility] ([facility]) [address] [place], [address], 01/07/2025 10:08:08 01/07/20 25 01/07/2025 CBC WITH DIFFE RENTI AL/PL ATELE T lymphs 35 % not estab. normal Not Available [facility] ([facility]) [address] [place], [address], 01/07/2025 10:08:08 01/07/20 25 01/07/2025 CBC WITH DIFFE RENTI AL/PL ATELE T monocytes 10 % not estab. normal Not Available [facility] ([facility]) [address] [place], [address], 01/07/2025 10:08:08 01/07/20 25 01/07/2025 CBC WITH DIFFE RENTI AL/PL ATELE T eos 7 % not estab. normal Not Available [facility] ([facility]) [address] [place], [address], 01/07/2025 10:08:08 01/07/20 25 01/07/2025 CBC WITH DIFFE RENTI AL/PL ATELE T basos 1 % not estab. 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 0 normal Not Available [facility] ([facility]) [address] [place], [address], 01/07/2025 10:08:08 01/07/20 25 01/07/2025 CBC WITH DIFFE RENTI AL/PL ATELE T lymphs (absolute) 2.1 x10e3 /uL 0.7-3. 1 normal Not Available [facility] ([facility]) [address] [place], [address], 01/07/2025 10:08:08 01/07/20 25 01/07/2025 CBC WITH DIFFE RENTI AL/PL ATELE T monocytes(ab solute) 0.6 x10e3 /uL 0.1-0. 9 normal Not Available [facility] ([facility]) [address] [facility], [place], [address], 01/07/2025 10:08:08 01/07/20 25 01/07/2025 CBC WITH DIFFE RENTI AL/PL ATELE T eos (absolute) 0.4 x10e3 /uL 0.0-0. 4 normal Not Available [facility] ([facility]) [address] [facility], [place], [address], 01/07/2025 10:08:08 01/07/20 25 01/07/2025 CBC WITH DIFFE RENTI AL/PL ATELE T baso (absolute) 0.1 x10e3 /uL 0.0-0. 2 normal Not Available [facility] ([facility]) [address] [facility], [place], [address], 01/07/2025 10:08:08 01/07/20 25 01/07/2025 CBC WITH DIFFE RENTI AL/PL ATELE T immature granulocytes 0 % not estab. Not Available [facility] ([facility]) [address] [facility], [place], [address], 01/07/2025 10:08:08 01/07/20 25 01/07/2025 CBC WITH DIFFE RENTI AL/PL ATELE T immature grans (abs) 0.0 x10e3 /uL 0.0-0. 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 Not Available [facility] ([facility]) [address] [place], [address], 01/07/2025 10:08:08 01/07/20 25 01/07/2025 BASIC METAB OLIC PANEL (8) glucose 107 mg/dL 70-99 above high normal Not Available [facility] ([facility]) [address] [place], [address], 01/07/2025 10:08:08 01/07/20 25 01/07/2025 BASIC METAB OLIC PANEL (8) BUN 8 mg/dL 8-27 normal Not Available [facility] ([facility]) [address] [facility], [place], [address], 01/07/2025 10:08:08 01/07/20 25 01/07/2025 BASIC METAB OLIC PANEL (8) creatinine 0.61 mg/dL 0.57-1 .00 normal Not Available [facility] ([facility]) [address] [place], [address], 01/07/2025 10:08:08 01/07/20 25 01/07/2025 BASIC METAB OLIC PANEL (8) eGFR 96 mL/mi n/1.7 3 >59 normal Not Available [facility] ([facility]) [address] [place], [address], 01/07/2025 10:08:08 01/07/20 25 01/07/2025 BASIC METAB OLIC PANEL (8) BUN/creatini ne ratio 13 12-28 normal Not Available [facility] ([facility]) [address] [place], [address], 01/07/2025 10:08:08 01/07/20 25 01/07/2025 BASIC METAB OLIC PANEL (8) sodium 138 mmol/ L 134-14 4 normal Not Available [facility] ([facility]) [address] [place], [address], 01/07/2025 10:08:08 01/07/20 25 01/07/2025 BASIC METAB OLIC PANEL (8) potassium 4.5 mmol/ L 3.5-5. 2 normal Not Available [facility] ([facility]) [address] [place], [address], 01/07/2025 10:08:08 01/07/20 25 01/07/2025 BASIC METAB OLIC PANEL (8) chloride 103 mmol/ L 96-106 normal Not Available [facility] ([facility]) [address] [place], [address], 01/07/2025 10:08:08 01/07/20 25 01/07/2025 BASIC METAB OLIC PANEL (8) carbon dioxide, total 23 mmol/ L 20-29 normal Not Available [facility] ([facility]) [address] [place], [address], 01/07/2025 10:08:08 01/07/20 25 01/07/2025 BASIC METAB OLIC PANEL (8) calcium 9.3 mg/dL 8.7-10 .3 normal Not Available [facility] ([facility]) [address] [place], [address], 01/07/2025 10:08:08 06/10/20 24 XR, shoul shankar, 2 or more view No observ ation record ed. [address] , [place], [address], 06/10/2024 17:05:09 06/10/20 24 XR, foot, 3 or more view No observ ation record ed. [address] , [place], [address], 06/10/2024 17:05:10 06/10/20 24 XR, foot, 3 or more view No observ [facility]ion record ed. [facility] [address] , [place], [address], 06/10/2024 17:05:10 07/22/[address], face, w/o contr ast No observ ation record ed. [address], [address], 08/05/2024 10:11:05 07/22/[address] 24 CT, face, w/o contr ast No observ ation record ed. [address], [address], 08/05/2024 10:11:05 08/19/19 25 US, gallb ladde r No observ ation record ed. [address] , [place], [address], 08/25/2024 11:40:47 10/21/19 25 CT, sinus es, w/o contr ast No observ ation record ed. [address], [place], [address], 11/01/2024 16:26:23 12/14/19 25 12/13/2024 elect rocar diogr am No observ ation record ed. [address], [address], 12/13/2024 12:03:03 01/07/20 25 01/06/2025 elect rocar diogr am No observ ation record ed. [address], [address], 01/06/2025 13:32:21 01/07/20 25 01/06/2025 elect alejandrojennifer ellijules am No observ ation record ed. [email or web address] [facility] [address] [facility], [place], [address], 01/10/2025 09:30:20 01/12/20 XR, chest , 2 view No observ ation record ed. [address] , [place], [address], 01/14/2025 11:45:38 01/14/20 25 01/12/2025 NM, myoca rdial perfu chato scan, w/ stres s No observ ation record ed. [facility] [address], [place], [address], 01/13/2025 16:15:40 01/14/20 25 01/12/2025 cardi ac stres s test No observ ation record ed. [facility] [address], [place], [place], [address], 01/13/2025 16:15:40 01/18/20 25 01/12/2025 US, doppl er echoc ardio gram, w/ color flow No observ ation record ed. [facility] [address], [place], [place], [address], 01/17/2025 09:07:35 01/18/20 25 01/17/2025 NM, hepat obili leon scan, w/pha rm No observ ation record ed. [facility] [address], [place], [address], 01/21/2025 11:20:31 Result Notes None recorded. Problems Name Problem SNOMED Code Status Onset Date Resolution Date Notes Provider Name and Address Organization Details Recorded Time Allergic rhinitis 85192115 Active 2008 [place] Dí[place] - [facility] 6 13:36:30 Depressive disorder 40738433 Active 2011 Bassem Bobo, OFFICE COORDINATOR RECEPTIONIST [address], [place], [address], [place] - [facility] 4 08:53:31 Gastroesophage al reflux disease 683794877 Active Bassem Bobo APRN [address], [place], [address], [place] [facility] 4 08:53:43 Essential hypertension 64718084 Active 2006 Bassem Bobo OFFICE COORDINATOR RECEPTIONIST [address], [place], [address], [place] [facility] 4 08:53:34 Acquired hypothyroidism 704021445 Active 09/2015 Bassem Bobo APRN [address], [place], [address], [place] [facility] 4 08:53:08 Lateral epicondylitis 389063156 Active 2011 Evelyn Nair null, [place] - [facility] 6 13:38:29 Plantar fasciitis 743014523 Active 2012 Evelyn Nair null, [place] - [facility] 6 13:38:41 Suspected COVID-19 581806492 Active 2020 Cynthia Mcgee null, [place] - [facility] 1 16:34:16 Gastroesophage al reflux disease without esophagitis 551881853 Active 2020 Bassem Bobo APRN [address], [place], [address], [place] [facility] 4 08:54:44 Vitamin D deficiency 13742635 Active 2020 Bassem Bobo OFFICE COORDINATOR RECEPTIONIST [address], [place], [address], [place] [facility] 4 08:54:23 Major depressive disorder 525577376 Active 2020 Bassem Bobo, OFFICE COORDINATOR RECEPTIONIST [address], [place], [address], [place] [facility] 4 08:53:56 Mixed hyperlipidemia 583387605 Active 2020 Bassem Bobo, OFFICE COORDINATOR RECEPTIONIST [address], [place], [address], [place] [facility] 4 08:54:03 Pain of multiple joints 64813077 Active 2020 Bassem Bobo, OFFICE COORDINATOR RECEPTIONIST [address], [place], [address], [place] [facility] 4 08:54:05 Thyroid nodule 420918262 Active 2020 Bassem Bobo, OFFICE COORDINATOR RECEPTIONIST [address], [place], [address], [place] [facility] 4 08:54:28 Benign essential hypertension 1417292 Active 2020 Bassem Bobo, OFFICE COORDINATOR RECEPTIONIST [address], [place], [address], [place] [facility] 4 08:53:22 Obstructive sleep apnea syndrome 96449470 Active 2020 Bassem Bobo, OFFICE COORDINATOR RECEPTIONIST [address], [place], [address], [place] [facility] 4 08:54:20 Senile osteoporosis 26960128 Active 2020 Bassem Bobo, OFFICE COORDINATOR RECEPTIONIST [address], [place], [address], [place] [facility] 4 08:54:34 Cyst of ovary 54773998 Active 2020 Ali Peggy null, [place] - [facility] 1 22:21:36 Kidney stone 08397669 Active 2020 Ali Peggy null, [place] - [facility] 1 15:24:12 History of calculus of kidney 686030172 Active 2020 Mikki Kraus, OFFICE COORDINATOR RECEPTIONIST [address], [place], [address], [place] [facility] 1 09:13:36 Congestion of nasal sinus 74346431 Active 2022 Mc Gray, OFFICE COORDINATOR RECEPTIONIST [address], [place], [address], [place] [facility] 3 08:11:11 Pain of ear 750051820 Active 2022 Mc Gray, OFFICE COORDINATOR RECEPTIONIST [address], [place], [address], [place] - [facility] 3 10:13:38 Posterior auricular pain 965977259 Active 2022 Mc Gray, OFFICE COORDINATOR RECEPTIONIST [address], [place], [address], [place] - [facility] 3 10:32:46 Hearing loss 44200945 Active 2023 Samantha العراقي [place], [place] - [facility] 4 09:45:45 Prediabetes 426747738 Active 2023 Bassem Bobo, OFFICE COORDINATOR RECEPTIONIST [address], [place], [address], [facility] - [facility] 4 08:56:12 Neuropathy 929259354 Active 2023 Bassem Bobo, OFFICE COORDINATOR RECEPTIONIST [address], [place], [address], [place] - [facility] 4 08:57:26 Problem Notes Documentation Provider Name and Address Organization Details Recorded Time 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 Ascending colon polyp: -Tubular adenoma. B. Sigmoid polyp: -Tubular adenoma. Pathologist Signature Devin Braxton M.D., Pathologist Electronic Signature : 2024-10-08 16:09 CLINICAL INFORMATION Preoperative Diagnosis: Surveillance Postoperative Diagnosis: Diverticulosis, Int hemorrhoids, Colonic polyp Symptoms/Radiologic Findings: Procedure: SPECIMENS: A. Ascending polyp B. Sigmoid polyp MICROSCOPIC EXAMINATION A. And B. Both samples show tubular adenoma without high-grade dysplasia. There is some uninvolved mucosa. Paneth cells are present within adenomatous tissue in part B. GROSS DESCRIPTION A. Received is a container of 10% neutral buffered formalin labeled with the patient's name and ascending polyp containing one yellow-snell tissue fragment(s), up to 0.3 cm. The specimen is totally submitted between sponges in one cassette(s) for levels. B. Received is a container of 10% neutral buffered formalin labeled with the patient's name and sigmoid polyp containing one yellow-snell tissue fragment(s), up HARINICOLEMARY C [id number] PATHOLOGY REPORT Continu to 0.7 cm. The specimen is trisected and totally submitted between sponges in one cassette(s) for levels. ([facility] CPT CODES A) 25114 B) 38474 COPY TO Devin Braxton PERFORMING SITE [employer]. ASSUMES NO RESPONSIBILITY FOR THE ACCURACY OF CPT CODES PROVIDED WHICH ARE FOR INFORMATIONAL PURPOSES ONLY. CPT CODES ARE PAYOR SPECIFIC AND CPT CODING IS THE SOLE RESPONSIBILITY OF THE BILLING ENTITY. THE TECHNICAL COMPONENT AND GROSS DESCRIPTION IS PERFORMED AT [employer] [address] [place] [address]. THE PROFESSIONAL COMPONENT PERFORMED AT [employer] [address] [facility], [address], [place] [address] at 1609 Signature on File Devin Braxton MD Dictated: 10/06/24 1045 Transcribed: Transcribed by: BROOKS GUPTAed Logic: Attending Provider: LEONEL BURRELL Referring Provider: LEONEL BURRELL Consulting Provider: TINO العراقي [facility] [place] - [facility] 11/10/2024 11:09:55 Procedures Surgical History Date Name Laterality Status Provider Name and Address Organization Details Recorded Time 10/07/19 25 colonoscopy completed Aislinn Cummings RN [address], [place], [address], [place] - [facility] 11/23/2024 11:41:02 11/15/19 23 Medication Reconcilliation completed Alma Rojas [place] - [facility] 11/14/2022 11:24:49 11/09/19 23 Removal of foreign body in ear canal completed Bassem Bobo APRN [address], [place], [address], [place] - [facility] 11/08/2022 10:01:22 05/24/20 21 Advance Care Planning completed Mandie Duffy RN [address], [place], [address], [place] - [facility] 01/02/2021 13:26:20 05/24/20 21 Functional Status Assessed completed Mandie Duffy RN [address], [place], [address], [place] - [facility] 01/02/2021 13:25:52 05/10/20 20 [...] Name and Address Organization Details Recorded Time 883028 Augmentin medicatio n Not available Not available Not available 11/09/2018 25915 2 RxNorm fatig ue Ike Olson [facility], [place] - [facility] 9 13:32:16 333886 Keflex medicatio n nausea Not available low 11/26/2020 82493 7 RxNorm unkno wn Bassem Tino, OFFICE COORDINATOR RECEPTIONIST [address], [place], [address], [place] - [facility] 5 11:57:38 67107 Substance with sulfonami de structure and antibacte rial mechanism of action (substanc e) medicatio n Not available Not available Not available 05/10/20162007 78462 8003 SNOMED React ion: Hives , nause a; Comme nt: Sulfo namid es; Not Available [facility] 6 09:39:39 Medications Name Sig [...] on: 08/16/19 14 12:09PM; User: isreal Patton Completarley on: 06/11/20 14;Indic ation: Hyperten chato - (07.4019 00);Brittanyr Shankar fied: 06/16/20 13 11:46AM Not Available Not [...] ation: Gastroes ophageal Reflux - (5308 );Phar macyVeri fied: 11/18/19 14 3:31PM Not Available Not [...] nued on: 01/12/20 16 10:29AM; User: maile StrongEstJoann Completi on: 11/19/19 16;Indic ation: Bacteria l [...] Prevacid 30 mg oral capsule, delayed release( /EC);c omment: not covered by insuranc e - must try OTC first;Pr escribe Status: Prescrib ed on: 09/09/19 14 10:23AM; Disconti nued Status: Disconti nued on: 11/18/19 14 3:09PM;U ser: saba; Est. Completi on: 03/08/20 14;Indic ation: Gastroes ophageal Reflux - (.5308 10);Phar Shankar fied: 09/09/19 14 10:23AM Not Available [...] nued on: 08/30/19 10 1:16PM;U ser: dary Swenson on: 04/14/20 09 Not Available Not Available [...] Available Not Available Nasonex 50 mcg/actua tion Kinde 06/03 completed Not Available Not Available Not [...] Not Available Not Available Not Available Acid Sluice Tender (ranitidi ne) 75 mg tablet take 1 tablet (75 mg) by oral route once daily with a glass of water 11/17 completed Acid Sluice Tender (ranitid ine) 75 mg oral tablet;R ecorded [...] nued on: 09/09/19 14 10:23AM; User: isreal Swenson on: 02/29/20 14;Indic ation: Gastroes ophageal Reflux - (09.5308 10);Phar macyVeri fied: 09/01/19 14 12:55PM Not Available Not [...] 11:45AM; User: halla;In dication : Pain - (167809 00) Not Available Not Available Not Available [...] Available Not Available Not Available Fluarix Quad 5414-4636 (PF) 60 mcg (15 mcg x 4)/0.5 [...] Allergy 205.5 mcg (0.15 %) nasal spray Kinde 1 spray twice a day by intranas al route. 2023 active Not Available Not Available Not Avai lable Vitals Date Recorded Body height Body mass index (BMI) Body weight Heart rate Oxygen saturation Oxygen saturation in Arterial blood by Pulse oximetry Respiratory rate Body temperature Systolic And Diastolic Provider Name and Address Organization Details Last Updated DateTime 5 162.56 cm 31.3 kg/m2 23826.9 1 g 86 /min 94 % 94 % 18 /min 99.7 [degF] 142/80 mm[Hg] Alma Rojas [place] - [facility] 5 11:24:18 Date Recorded Body height Respiratory rate Body mass index (BMI) Body weight Heart rate Oxygen saturation Oxygen saturation in Arterial blood by Pulse oximetry Body temperature Systolic And Diastolic Provider Name and Address Organization Details Last Updated DateTime 5 162.56 cm 18 /min 31.1 kg/m2 81504.2 2 g 78 /min 94 % 94 % 97.9 [degF] 140/84 mm[Hg] Samantha Dulce Maria [place] - [facility] 5 10:45:36 Date Recorded Body height Body mass index (BMI) Body weight Provider Name and Address Organization Details Last Updated DateTime 06/08/2024 162.56 cm 30.2 kg/m2 86102.26 g Alma Crystal [facility] 06/08/2024 13:11:42 Date Recorded Body height Body mass index (BMI) Body weight Heart rate Body temperature Oxygen saturation Oxygen saturation in Arterial blood by Pulse oximetry Respiratory rate Systolic And Diastolic Provider Name and Address Organization Details Last Updated DateTime 4 162.56 cm 30.6 kg/m2 68629.4 4 g 57 /min 98 [degF] 97 % 97 % 18 /min 144/80 mm[Hg] Alma Crystal [facility] 4 10:00:26 Date Recorded Body height Body mass index (BMI) Body weight Heart rate Oxygen saturation Oxygen saturation in Arterial blood by Pulse oximetry Respiratory rate Systolic And Diastolic Provider Name and Address Organization Details Last Updated DateTime 4 162.56 cm 30.6 kg/m2 03464.5 4 g 77 /min 96 % 96 % 18 /min 138/84 mm[Hg] Alma Crystal [facility] 4 09:12:58 Social History Question Answer Notes LastModified by Organizat ion Details LastModified Time Tobacco Smoking Status Former Smoker Evelyn daniels [facility] 05/29/2016 13:38:48 Able To Swim? No Information [...] Or The Highest Degree You Have Received? [id number] Information not available 05/22/2023 Swimming/diving No Informati [...] Do You Have A Medical Power Of Budget Director? No Information not available 01/06/2025 What Was [...] not available 05/22/2023 What is your occupation? [email or web address] Information not available 06/03/2016 Mental Status Question Answer Note LastModified by Organizat ion Details LastModified Time Do you feel stressed (tense, restless, nervous, or anxious, or unable to sleep at night)? [id number] Information not available 05/22/2023 Do you have difficulty concentrating, remembering or making decisions? No Information no t available 05/22/2023 Family History Relationship Description Onset Age of this Age Resolved Age Notes LastModified by Organization Details LastModified Time Paternal Grandmother Arthritis [email or web address] Not available 1 13:40:32 Sister Asthma [email or web address] Not available 05/29/2016 13:40:43 Sister Rheumatoid arthritis [email or web address] Not available 2022 11:56:42 Brother Bipolar disorder [email or web address] Not available 2022 11:56:42 Maternal Grandmother Malignant tumor of breast [email or web address] Not available 05/29 13:41:05 Unspecified Relation Malignant tumor of colon Aunt [email or web address] Not available 05/29 13:41:24 Unspecified Relation Hypercholest erolemia [email or web address] Not available 05/29 13:42:45 Mother Corneal transplant [email or web address] Not available 11/20 11:56:42 Mother Diabetes mellitus Type II [email or web address] Not available 05/29/2016 13:42:32 Mother Hypertensive disorder [...] Recorded Time Tdap 017 completed Not Available [facility] 08/21/2019 03:54:34 Pneumococcal conjugate PCV 13 007 completed Samantha Stears null, [place] - [facility] 09/19/2023 11:45:02 influenza, unspecified formulation 009 completed Samantha Stears null, [place] - [facility] 09/19/2023 11:45:02 influenza, unspecified formulation 013 completed Not Available [facility] 09/04/2019 02:21:29 influenza, unspecified formulation 016 completed Samantha Stears null, [facility] 09/19/2023 11:45:02 Novel [id number], all formulations 010 completed Samantha Stears null, [facility] 09/19/2023 11:45:02 Influenza, split virus, quadrivalent, preservative 016 completed Not Available [facility] 08/21/2019 03:54:18 Influenza, high-dose, quadrivalent, PF 023 completed Ike Olson null, [facility] 05/08/2023 11:45:58 pneumococcal polysaccharide PPV23 016 completed Not Available [facility] 09/04/2019 02:21:58 zoster live 016 completed Samantha Stears [place] - [facility] 09/19/2023 11:45:02 Influenza, high-dose, quadrivalent, PF 024 completed Alma Rojas null, [facility] 06/08/2024 14:56:51 Influenza, split virus, quadrivalent, preservative 019 completed Samantha Stears null[place] - [facility] 09/19/2023 11:45:01 Influenza, split virus, quadrivalent, preservative 018 completed Not Available [facility] 08/21/2019 03:55:14 Influenza, high-dose, quadrivalent, PF 020 completed Samantha Stears [place] [facility] 09/19/2023 11:45:01 Influenza, split virus, quadrivalent, preservative 021 completed Samantha Stears null[place] - [facility] 09/19/2023 11:45:01 COVID-19, mRNA, LNP-S, PF, 100 mcg/0.5mL dose or 50 mcg/0.25mL dose 021 completed Samantha Stears [place] [facility] 09/19/2023 11:45:01 Influenza, split virus, quadrivalent, preservative 016 completed Alma Crystal null, - [facility] 10/17/2022 15:07:01 Influenza, recombinant, quadrivalent, PF 019 completed Alma Crystal null, - [facility] 10/17/2022 15:07:01 Influenza, high-dose, quadrivalent, PF 020 completed Alma Crystal [place] - [facility] 10/17/2022 15:07:01 Influenza, high-dose, quadrivalent, PF 021 completed Alma Crystal [place] [facility] 10/17/2022 15:07:01 COVID-19 vaccine, vector-nr, [id number], PF, 0.5 mL 021 completed Alma Crystal [place] [facility] 10/17/2022 15:07:01 Tdap 016 completed Alma Crystal [place] [facility] 10/17/2022 15:07:01 zoster live 016 completed Alma Crystal [place] [facility] 10/17/2022 15:07:01 Influenza, split virus, quadrivalent, PF 017 completed Alma Crystal [place] [facility] 10/17/2022 15:07:01 Influenza, split virus, quadrivalent, PF 019 cancelled patient objection Not Available [facility] 08/21/2019 03:56:06 RSV, recombinant, protein subunit RSVpreF, adjuvant reconstituted, 0.5 mL, PF 023 completed Samantha Stears null[place] - [facility] 09/19/2023 11:45:01 Past Encounters Encounter ID Performer Location Encounter Start Date Encounter Closed Date Diagnosis/Indication Diagnosis SNOMED-CT Code Diagnosis ICD10 Code Diagnosis Note [id number] [facility] [address] [place] [address] 11/07/2011 00:00:00 [id number] [facility] [address] [place] [address] 11/15/2011 00:00:00 [id number] [facility] [facility] [address] [place] [address] 02/26/2012 00:00:00 [id number] [facility] [address] [place] [address] 09/02/2012 00:00:00 [id number] [facility] [address] [place] [address] 10/26/2012 00:00:00 [id number] [facility] [address] [place] [address] 06/08/2007 00:00:00 [id number] [facility] [address] [place] [address] 07/20/2007 00:00:00 [id number] [facility] [address] [place] [address] 01/25/2009 00:00:00 [id number] [facility] [address] [place] [address] 5 04/07/2009 00:00:00 [id number] [facility] [address] [place] [address] 08/30/2009 00:00:00 [id number] [facility] [address] [place] [address] 11/10/2009 00:00:00 [id number] [facility] [address] [place] [address] 05/05/2013 00:00:00 [id number] [facility] [address] [place] [address] 06/16/2013 00:00:00 [id number] [facility] [address] [place] [address] 06/25/2013 00:00:00 [id number] [facility] [address] [place] [address] 08/16/2013 00:00:00 [id number] [facility] [address] [place] [address] 09/01/2013 00:00:00 [id number] [facility] [address] [place] [address] 11/17/2013 00:00:00 [id number] [facility] [address] [place] [address] 12/22/2013 00:00:00 [id number] [facility] [address] [place] [address] 02/02/2014 00:00:00 [id number] [facility] [address] [place] [address] 08/22/2014 00:00:00 [id number] [facility] [address] [place] [address] 09/05/2014 00:00:00 [id number] [facility] [address] [place] [address] 01/17/2015 00:00:00 [id number] [facility] [address] [place] [address] 02/20/2015 00:00:00 [id number] [facility] [address] [place] [address] 5 09/06/2015 00:00:00 [id number] [facility] [address] [place] [address] 5 09/27/2015 00:00:00 [id number] [facility] [address] [place] [address] [address] 10/24/2015 00:00:00 [id number] [facility] [address] [place] [address] [address] 5 11/17/2015 00:00:00 [id number] [facility] [address] [place] [address] 5 01/12/2016 00:00:00 [id number] [facility] [address] [place] [address] 03/06/2016 00:00:00 [id number] [facility] [address] [place] [address] 02/23/2007 00:00:00 [id number] [facility] [address] [place] [address] 03/09/2007 00:00:00 [id number] [facility] [address] [place] [address] 05/11/2007 00:00:00 [id number] [facility] [address] [place] [address] 12/25/2009 00:00:00 [id number] [facility] [address] [place] [address] 03/29/2010 00:00:00 [id number] [facility] [address] [place] [address] 5 09/21/2010 00:00:00 [id number] [facility] [address] [place] [address] 11/29/2010 00:00:00 [id number] [facility] [address] [place] [address] 07/22/2011 00:00:00 [id number] [facility] [address] [place] [address] 5 10/21/2011 00:00:00 [id number] Mikki Kraus, OFFICE COORDINATOR RECEPTIONIST[address] [address] 06/03/2016 15:39:29 06/03/2016 16:40:05 Acquired hypothyroidism 458348828 E03.9 Influenza vaccine needed 1130406920 106 Z23 Body mass index 25-29 - overweight 892876200 Z68.28 Vitamin D deficiency 347 20362 E55.9 Mixed hyperlipidemia 267 682175 E78.2 Pain of mu ltiple joints 57110024 M25.50 [id number] Mikki Kraus [address] [place] [address] 09/03/2016 09:45:14 09/03/2016 11:10:26 Acquired hypothyroidism 138498540 E03.9 Body mass index 25-29 - overweight 839089410 Z68.28 Vitamin D deficiency 347 80913 E55.9 Mixed hyperlipidemia 267 591298 E78.2 Pain of mu ltiple joints 79870852 M25.50 Pain in right knee 77145 14520 36324 M25.561 Pain in both feet 938112 7042 8538402 M79.671 M79.023 [id number] Paul Coto MD [address] [address] 10/08/2016 08:58:43 10/08/2016 09:37:38 Pruritic rash 89133311 L28.2 [id number] Gary Williamson DO [address] [place] [address] [address] 12/25/2016 09:04:44 12/25/2016 10:31:26 Acquired hypothyroidism 079046496 E03.9 Vitamin D deficiency 347 95615 E55.9 Gastroesop hageal reflux disease without esophagitis 996039701 K21.9 Essential hypertension 27492237 I10 Major depr essive disorder 291635849 F32.9 Seasonal a llergic rhinitis 869530994 J30.2 Onychia of toe 360718171 L03.857 [id number] Mikki Kraus APR[address] [address] [address] 04/08/2017 11:53:51 04/08/2017 13:32:43 Acquired hypothyroidism 575400082 E03.9 Administra tion of diphtheria, pertussis, and tetanus vaccine 208342708 Z23 Body mass index 25-29 - overweight 005335399 Z68.28 Vitamin D deficiency 347 51030 E55.9 Mixed hyperlipidemia 267 616538 E78.2 Pain of mu ltiple joints 50704354 M25.50 Abnormal urine odor 8769 003 R82.90 Fatigue 60355544 R53.83 Screening for malignant neoplasm of breast 585507732 Z12.31 Screening for malignant neoplasm of colon 626704189 Z12.11 Screening for malignant neoplasm of cervix 505650285 Z12.4 Seasonal a llergic rhinitis 983661418 J30.2 Thyroid nodule 963480112 E04.1 [id number] RADHA Venegas [employer] [address] [place] [address] [address] [address] 05/22/2017 09:57:57 05/22/2017 11:00:53 Routine gynecologic examination done 9585764155 9101 Z01.419 Depression screening 171 898892 Z13.89 Hypertensi on screening 172764898 Z13.6 Diet education 91055239 Z71.3 Encourage healthy eating/dec reased fats, sugars, fried foods Counseling 969290567 Z71 .9 Encouraged regular exercise 30-40min/d ay 4-5 days/wk Body mass index 30+ - obesity 425789230 Z68.30 Chronic ma xillary sinusitis 27578778 J32.0 Atrophic vaginitis 61732 000 N95.2 Sample PVC provided with instructio ns for 0.5g twice weekly @ [id number] Renetta Jara APRN [address] [address] 09/02/2017 09:05:39 09/02/2017 10:10:24 Cough 88974590 R05 Acute bronchitis 3901818 2 J20.9 [id number] Renetta Jara APRN [address] [address] 09/09/2017 11:11:49 09/09/2017 11:46:09 Otalgia 54244799 H92.02 [id number] Mikki Kraus [address] [address] 10/08/2017 09:46:49 10/08/2017 11:00:15 Acquired hypothyroidism 719301696 E03.9 Gastroesop hageal reflux disease without esophagitis 394454004 K21.9 Vitamin D deficiency 347 00688 E55.9 Major depr essive disorder 763685532 F32.9 Mixed hyperlipidemia 267 528237 E78.2 Pain of mu ltiple joints 56887341 M25.50 Seasonal a llergic rhinitis 002998936 J30.2 Thyroid nodule 311216914 E04.1 Body mass index 30+ - obesity 344652213 Z68.39 Renewal of prescription 118547973 Z76.0 [id number] Walter Coto [address] [address] [address] 12/23/2017 08:20:12 12/23/2017 09:15:28 Acute upper respiratory infection 77999350 J06.9 [id number] Walter Coto [address] [address] [address] 04/30/2018 16:28:05 04/30/2018 17:27:58 Upper respiratory infection 58235847 J06.9 [id number] Mikki Kraus [address] [place] [address] [address] 05/06/2018 16:27:57 05/06/2018 17:21:25 Acquired hypothyroidism 392572573 E03.9 Seasonal a llergic rhinitis 422848216 J30.2 Gastroesop hageal reflux disease without esophagitis 712527328 K21.9 Vitamin D deficiency 347 49715 E55.9 Major depr essive disorder 628771660 F32.9 Mixed hyperlipidemia 267 495949 E78.2 Pain of mu ltiple joints 87537496 M25.50 Thyroid nodule 010085148 E04.1 Renewal of prescription 081742052 Z76.0 Benign ess ential hypertension 5464466 I10 Body mass index 25-29 - overweight 567966496 Z68.29 Administra tion of influenza vaccine 58006342 Z23 Obstructiv e sleep apnea syndrome 09226502 G47.33 [id number] Rosalia Pruitt MD [address] [place] [address] [address] 05/26/2018 08:53:53 05/26/2018 09:53:11 Acute sinusitis 95459040 J01.90 [id number] Mikki Kraus APRN [address] [place] [address] [address] 11/04/2018 10:44:49 11/04/2018 11:49:08 Acquired hypothyroidism 547280587 E03.9 Pain in throat 485924278 R07.0 Seasonal a llergic rhinitis 763322581 J30.2 Gastroesop hageal reflux disease without esophagitis 153829465 K21.9 Vitamin D deficiency 347 11980 E55.9 Major depr essive disorder 118434013 F32.9 Mixed hyperlipidemia 267 037514 E78.2 Pain of mu ltiple joints 47862479 M25.50 Thyroid nodule 000255878 E04.1 Benign ess ential hypertension 2957575 I10 Obstructiv e sleep apnea syndrome 70150854 G47.33 Body mass index 30+ - obesity 903632093 Z68.31 Screening for malignant neoplasm of colon 499848402 Z12.11 Acute bronchitis 1169457 2 J20.9 [id number] Paul Coto MD [address] [place] [address] 12/22/2018 09:16:42 12/22/2018 10:01:31 Dysuria 12208721 R30.0 Urinary tr act infectious disease 40197683 N39.0 Pain in bi lateral legs 3784678592 2568871 M79.421 [id number] Mikki Kraus APRN [address] [place] [address] 05/05/2019 10:48:19 05/05/2019 12:43:07 Acquired hypothyroidism 255591850 E03.9 Administra tion of influenza vaccine 81705879 Z23 Gastroesop hageal reflux disease without esophagitis 549532698 K21.9 Vitamin D deficiency 347 18795 E55.9 Major depr essive disorder 531041221 F32.9 Mixed hyperlipidemia 267 709621 E78.2 Pain of mu ltiple joints 91072017 M25.50 Thyroid nodule 461103556 E04.1 Benign ess ential hypertension 6666146 I10 Obstructiv e sleep apnea syndrome 20580709 G47.33 Body mass index 30+ - obesity 544147733 Z68.31 Vitamin B1 2 deficiency (non anemic) 54998560 E53.8 Acute bronchitis 2157708 2 J20.9 [id number] Van Woods MD [address] [place] [address] [address] 08/09/2019 13:14:48 08/09/2019 14:30:25 Cough 25356986 R05 Rapid flu negative Chest wall pain 34903405 6 R07.89 See above for plan under chest pain. Acute sinusitis 03189646 J01.90 Discussed saline nasal irrigation . Use Flonase and take antibiotic s Doxycyclin e. See us or go to the Er should get worse or develop new symptoms. Follow up with us in a week. Chest pain 31829184 R07. 9 Sudden onset after she rolled [...] Follow up with us after hospital discharge. [id number] Van Woods MD [address] [place] [address] [address] 08/18/2019 09:12:09 08/18/2019 10:48:15 Cough 79582924 R05 Pt has symptoms suggestive of sinusitis and bronchitis . Discussed saline nasal irrigation . Use Flonase and take antibiotic s Cefdinir as prescribed . Take Mucinex and Ventolin as prescribed . See us or go to the Er should get worse or develop new symptoms. Follow up in 5 days. Chest pain 46897081 R07. 9 Chest pain would localize to left lower ribs underneath left breast. We are unable to get EKG in office. I recommende d she should get EKG at hospital as soon as possible today and also labs (Troponin I; stat ordered). No known allergies to contrast or dye. Will also get CTA to rule out PE, andaortic disease. Endocrine/ metabolic screening 850537340 Z13.228 A1c is 5.7 Rib pain 154298486 R07.8 1 Pt has CXR and XR of ribs- unremarkab le. Pt understand s the risk of radiation exposure from CT scan. She has asked a few times now to order a CT chest for her to see if she has a rib fracture. Will get CT chest. Hypertensive disorder 38 309097 I10 Continue Metoprolol . Added Losartan. Recommende d to reduce dietary sodium intake to less than 100 mEq (2.3 g of sodium or 6 g of sodium chloride)/ day. Discussed weight loss, DASH diet and exercise programGet fasting labs in our clinic as soon as possibleFo llow up on HTN in 2 weeks. Screening for malignant neoplasm of breast 134507693 Z12.39 Get mammogram. Prediabetes 933459484 R7 3.03 Take a diabetic diet, exercise and loose weight. Get a repeat A1c in 3 months Liver enzy mes outside reference range 874397724 R94.5 Recent labs in May 2019 had shown high ALT and AST. Get labs and US liver [id number] Mikki Kraus APRN [address] [place] [address] 11/10/2019 16:18:29 11/10/2019 16:57:04 Acquired hypothyroidism 545885889 E03.9 Gastroesop hageal reflux disease without esophagitis 487147847 K21.9 Vitamin D deficiency 347 45014 E55.9 Major depr essive disorder 617529781 F32.9 Mixed hyperlipidemia 267 448079 E78.2 Pain of mu ltiple joints 41749868 M25.50 Thyroid nodule 104637344 E04.1 Benign ess ential hypertension 6347441 I10 Obstructiv e sleep apnea syndrome 74711861 G47.33 Body mass index 30+ - obesity 355116878 Z68.30 Vitamin B1 2 deficiency (non anemic) 34595050 E53.8 Senile osteoporosis 1804 0001 M81.0 [id number] Mikki Kraus [address] [place] [address] 05/10/2020 11:04:15 05/10/2020 12:07:35 Acquired hypothyroidism 188377907 E03.9 Gastroesop hageal reflux disease without esophagitis 169402638 K21.9 Vitamin D deficiency 347 49825 E55.9 Major depr essive disorder 397519611 F32.9 Mixed hyperlipidemia 267 334965 E78.2 Pain of mu ltiple joints 12782409 M25.50 Thyroid nodule 551512186 E04.1 Benign ess ential hypertension 0433302 I10 Obstructiv e sleep apnea syndrome 10381084 G47.33 Body mass index 30+ - obesity 040573065 Z68.30 Vitamin B1 2 deficiency (non anemic) 78989748 E53.8 Senile osteoporosis 1804 0001 M81.0 Screening for malignant neoplasm of colon 715177721 Z12.11 Neck pain 64704729 M54.2 [id number] Mikki Kraus [address] [place] [address] 11/13/2020 09:47:09 11/13/2020 11:26:53 Acquired hypothyroidism 544878987 E03.9 Gastroesop hageal reflux disease without esophagitis 245751457 K21.9 Vitamin D deficiency 347 00294 E55.9 Major depr essive disorder 309562236 F32.9 Mixed hyperlipidemia 267 545552 E78.2 Pain of mu ltiple joints 74614665 M25.50 Thyroid nodule 687471501 E04.1 Benign ess ential hypertension 3058733 I10 Obstructiv e sleep apnea syndrome 57155623 G47.33 Body mass index 30+ - obesity 883789459 Z68.32 Vitamin B1 2 deficiency (non anemic) 78232405 E53.8 Senile osteoporosis 1804 0001 M81.0 Screening for malignant neoplasm of colon 623356209 Z12.11 [id number] Rosalia Pruitt MD [address] [place] [address] 09/26/2020 16:05:47 09/26/2020 18:26:42 Acute sinusitis 18349762 J01.90 [id number] Van Woods MD [address] [place] [address] 11/21/2020 14:27:29 11/21/2020 15:25:27 Increased frequency of urination 611840846 R35.0 Acute cystitis. Take Macrobid as prescribed [...] see us for same. Blood in urine 98427224 R31.9 See above. Will also check KUB, renal bladder US Diabetes m ellitus screening 322865464 Z13.1 Proteinuria 41596088 R80 .9 [id number] Mikki Kraus APRN [address] [place] [address] 05/24/2021 10:40:36 05/24/2021 11:59:10 Adult health examination 381414962 Z00.00 Depression screening 171 162889 Z13.89 Examinatio n of blood pressure 676030028 Z01.30 Diet education 41024567 Z71.3 Counseling 108822628 Z71 .82 Exercise counseling . Patient encouraged to exercise 30 minutes 5 days a week. [facility] 042517528 Z91.81 STEADI FAST screening score of _3____. Advance care planning 71 1822002 Z71.89 Acquired hypothyroidism 181236001 E03.9 Gastroesop hageal reflux disease without esophagitis 479454905 K21.9 Vitamin D deficiency 347 54972 E55.9 Major depr essive disorder 400666586 F32.9 Mixed hyperlipidemia 267 389164 E78.2 Thyroid nodule 057275983 E04.1 Benign ess ential hypertension 1684748 I10 Obstructiv e sleep apnea syndrome 37402863 G47.33 Body mass index 30+ - obesity 925199740 Z68.30 Vitamin B1 2 deficiency (non anemic) 45703087 E53.8 Senile osteoporosis 1804 0001 M81.0 History of calculus of kidney 065765300 Z87.442 Acute urin leon tract infection 820869589 N39.0 Screening for malignant neoplasm of breast 148774414 Z12.31 Pneumococc al vaccination declined 329270794 Z28.21 Abnormal urine odor 8769 003 R82.90 Screening for malignant neoplasm of colon 180109607 Z12.11 [id number] RADHA Jacinto[address] [place] [address] 08/08/2021 12:43:19 08/08/2021 13:55:00 Ear pressure sensation 428898685 H93.8X9 Cough 22953081 R05.9 Nasal congestion 2305266 0 R09.81 Fatigue 56037140 R53.83 History of SARS-CoV-2 29 91459054 46333779 Z86.16 Viral screening 79963118 4 Z11.52 [id number] Bassem Bobo [address] [address] 06/14/2022 15:15:00 06/14/2022 17:02:17 Acute maxillary sinusitis 94740715 J01.00 Patient likely has an acute bacterial sinusitis. Will treat as below. Supportive care reviewed: raising HOB, humidifier use, saline nasal spray, rest, encourage PO fluids and monitor hydration status, infection control measures. Recommende d acetaminop hen/ibupro fen PRN pain, fever Follow-up as needed Seasonal allergy 4507394 04 J30.2 start after finishing antibiotic [id number] Bassem Bobo APRN [address] [address] 10/17/2022 14:56:35 10/17/2022 15:37:37 Acute maxillary sinusitis 49833030 J01.00 raising HOB, humidifier use, saline nasal spray, rest, encourage PO fluids and monitor hydration status, infection control measures.R ecommended acetaminop hen/ibupro fen PRN pain, feverFollo w-up as needed Acute bronchitis 1660674 2 J20.9 pt states she can take rocephin and zpak with meds [id number] Bassem Bobo [address] [address] 11/08/2022 09:13:19 11/08/2022 10:16:57 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 [address] 11/20/2022 11:56:35 11/20/2022 12:37:00 Acquired hypothyroidism 867206031 E03.9 Gastroesop hageal reflux disease without esophagitis 864504964 K21.9 Vitamin D deficiency 347 61466 E55.9 Major depr essive disorder 855978593 F32.9 Mixed hyperlipidemia 267 888765 E78.2 Thyroid nodule 655870666 E04.1 Benign ess ential hypertension 8138151 I10 Obstructiv e sleep apnea syndrome 46218621 G47.33 Vitamin B1 2 deficiency (non anemic) 77789150 E53.8 Senile osteoporosis 1804 0001 M81.0 History of calculus of kidney 461569849 Z87.442 Body mass index 25-29 - overweight 086248601 Z68.28 Herpes zoster 9573473 B0 2.9 Reynolds pals y of left side of face 6439475596 8707918 G51.0 Motion sickness 94653951 T75.3XXA [id number] Mc Gray [address] [address] 04/24/2023 09:50:16 04/24/2023 10:42:37 Congestion of nasal sinus 56052719 R09.81 J01.90 Patient likely has an acute [...] ow-up as below. Major depr essive disorder 013699799 F32.9 -patient reports depression is well controlled with medication -denies recent major depressive episodes, suicidal/h omicidal Ideation-r efill for escitalopr am sent-follo w up in 3 months with PCP or sooner for worsening of conditions Posterior auricular pain 896678387 H92.01 -reports left posterior auricular pain with ear fullness for years-revi ewed MRI of brain from 12/2022 in which no abnormalit ies of the ear were noted but there was no documentat ion concerning the auricles so do not know if they were addressed at all-benign physical exam-CT to rule out abnormalit y of left ear and sinuses [id number] Mikki Kraus APRN [address] [place] [address] 05/08/2023 11:35:44 05/08/2023 11:56:09 Influenza vaccine needed 3074936002 106 Z23 [id number] Bassem Bobo APRN [facility] [address] [place] [address] 06/03/2023 13:12:33 06/03/2023 14:17:44 Hypothyroidism 92166060 E03.9 Influenza caused by Influenza A virus 605022048 J09.X2 no sign of a bacterial infection. [...] up to 93% after breathing treatment Wheezing 96852155 R06.2 [id number] Bassem Bobo APRN [address] [address] 06/13/2023 15:19:06 06/13/2023 15:54:45 Acute urinary tract infection 337402208 N39.0 increase fluids, discussed with pt to go to ed if symptoms worsen [id number] Bassem Bobo [address] [address] 09/19/2023 11:32:52 09/19/2023 12:18:40 Acute maxillary sinusitis 16455668 J01.00 raising HOB, humidifier use, saline nasal spray, rest, encourage PO fluids and monitor hydration status, infection control measures.R ecommended acetaminop hen/ibupro fen PRN pain, feverFollo w-up as needed [id number] Bassem Bobo [address] [address] 10/06/2023 09:32:38 10/06/2023 10:32:36 COVID-19 993760388 U07.1 may return to work friday10/10/23no sign [...] improvemen t over the next 48-72 hours [id number] Bassem Bobo [address] [address] 01/08/2024 08:16:44 01/08/2024 09:07:42 Long-term current use of drug therapy 006944297 Z79.899 Sore throat 412600997 J0 2.9 Acquired hypothyroidism 203186448 E03.9 Benign ess ential hypertension 8374354 I10 Depressive disorder 3548 9007 F32.A Mixed hyperlipidemia 267 670741 E78.2 Pain of mu ltiple joints 06321802 M25.50 Vitamin D deficiency 347 05560 E55.9 Prediabetes 119964864 R7 3.03 Neuropathy 281187639 G62 .9 Pt compliant with plan of careKasper reviewedme dication compliance discussedL ast uds:01/08/24 Control substance agreement on file Pharyngitis 261522929 J0 2.[id number] [address] 05/07/2024 15:36:24 05/07/2024 16:38:02 Acute upper respiratory infection 44673147 J06.9 no sign of a bacterial infection. likely viral. viruses can take 7-14 days to run their course. nasal saline and bulb syringe to remove nasal drainage to help with congestion . monitor temp. Tylenol or Motrin as needed for pain or fever. encourage fluids, water, Gatorade, power aide, Pedialyte if /tod dler/child warm salt water gargles warm fluids sore throat lozenges sleep elevated humidifier /vaporizer follow up immediatel y for new or worsening symptoms or no noticeable improvemen t over the next 48-72 hours [id number] [facility] [address] [address] 06/08/2024 12:55:19 06/08/2024 14:04:26 Essential hypertension 16493494 I10 labs Neuropathy 503789159 G62 .9 Pt compliant with plan of careKasper reviewedme dication compliance discussedL ast uds: 4Control substance agreement on file Bilateral cramp of muscle of lower limbs 6579527991 4416907 R25.2 labs Mixed hyperlipidemia 267 129755 E78.2 labs Vitamin D deficiency 347 07661 E55.9 labs Long-term current use of drug therapy 000661775 Z79.899 Acquired hypothyroidism 003363509 E03.9 labs Active or passive immunization 492690892 Z23 Pain in both feet 619557 5272 8289732 M79.671 pt declines referral to podiatry at this time Pain of ri ght shoulder joint 9234642791 4767454 M25.511 xray- poss ct [id number] Bassem Bobo [address] [address] 06/28/2024 09:33:31 06/28/2024 10:31:37 Acute maxillary sinusitis 94400337 J01.00 raising HOB, humidifier use, saline nasal spray, rest, encourage PO fluids and monitor hydration status, infection control measures.R ecommended acetaminop hen/ibupro fen PRN pain, feverFollo w-up as neededafte r ct will refer to ent Pain in face [id number] R5 1.9 Headache [id number] R51.9 Dizziness [id number] R42 [id number] Bassem Bobo [address] [address] 07/20/2024 08:59:33 07/20/2024 09:40:36 Abdominal pain [id number] R10.9 if symptoms do not improve or worsen go to ed for eval Dizzy spells [id number] R 42 Constipation [id number] K5 9.00 1 bottle of mag citrate then start miralaxif symptoms do not improve or worsen go to ed for eval Acute maxi llary sinusitis [id number] J01.00 raising HOB, humidifier use, saline nasal spray, rest, encourage PO fluids and monitor hydration status, infection control measures.R ecommended acetaminop hen/ibupro fen PRN pain, feverFollo w-up as neededafte r ct will refer to ent if needed Screening for malignant neoplasm of colon [id number] Z12.11 [id number] Bassem Bobo OFFICE COORDINATOR RECEPTIONIST [address] [address] 12/13/2024 11:09:04 12/13/2024 12:02:57 Preoperative procedure [id number] Z01.818 Body mass index 30+ - obesity [id number] E66.9 31.3 Acute maxi llary sinusitis 86470110 J01.00 raising HOB, humidifier use, saline nasal spray, rest, encourage PO fluids and monitor hydration status, infection control measures.R ecommended acetaminop hen/ibupro fen PRN pain, feverFollo w-up as needed [id number] Bassem Bobo [address] [address] 01/06/2025 10:06:17 01/06/2025 11:31:56 Preoperative state [id number] Z01.818 will need surgery clearance from cardiology also- pt report no cardiac hx Neuropathy [id number] G62 .9 Pt compliant with yandy of Karen reviewedme dication compliance discussedL ast uds:01/06/25 Control substance agreement on file Long-term current use of drug therapy [id number] Z79.899 Electrocar diogram abnormal 309100974 R94.31 Right uppe r quadrant pain [id number] R10.11 Health Concerns Section Related Observation LastModified by Organization Detai ls LastModified Time None Recorded Concern Status LastModified by Organization Details LastModified Time None Recorded Advance Directives Directive N: Payers Insurance Date Sequence Insurance Name Policy Number Policy Marrero Covered Member ID Marrero Member ID Guarantor Name 01/03/2025 1 [place]MED[place]AC[place] H[place] [id number] Mary Barrera [id number] Mary Hariel 05/20/2023 [place] Mary Barrera [id number] Mary Holly 04/24/2023 [id number] Mary Hariel [id number] Mary Holly 04/24/2023 1 [facility] (MEDICAID REPLACEMENT - HMO) SHAHRIAR Mary Tuel [id number] Mary Barrera 09/19/2023 1 [facility] (MEDICARE REPLACEMENT/A DVANTAGE - HMO) [id number] Mary Barrera [id number] Mary Barrera 04/24/2023 1 [employer] (MEDICAID REPLACEMENT - HMO) MEDICAID Mary Barrera [id number] Mary Barrera 05/20/2023 2 [employer] (MEDICAID REPLACEMENT - HMO) [id number] Mary Barrera [id number] Mary Barrera Notes Date Note Type Note Provider [...] pain. pt states she works at the [employer] and the repeat movements cause her shoulder to throb and radiate pain into her arm Kangabhijit RADHA vazquez [address], [place], [address], [place] [facility] 06/08/2024 13:48:53 06/28/2024 text/html [...] that was ordered and had no relief Kangabhijit RADHA vazquez [address], [place], [address], [place] [facility] 06/28/2024 14:39:49 07/20/2024 text/html 69 yr old female presents with diffuse abdominal pain since Friday. She states her bowels aren't moving like [...] radiates. Bassem Bobo APRN [address], [place], [address], [place] [facility] 07/20/2024 12:14:16 12/13/2024 text/html 69 yr old female presents for cough, sore throat, low grade temp that started yesterday. Patient is having sinus/nasal surgery in January, presents with pre op orders to have preformed after she is well. Bassem Bobo APRN [address], [place], [address], [place] [facility] 12/13/2024 12:00:25 01/06/2025 text/html 70 year old francesco vicente who presents to the office today for apre op H&P, ekg and labs for sinus surgery 01-14-[address] Romo at [facility] refill on gabapentin for neuropathyhas concerns of right upper quadrant pain Bassem Bobo APRN [address], [place], [address], [place] [facility] 01/06/2025 11:28:56 OBGyn Episode No OBEpisode recorded.
[2025-02-02] MEDS: SODIUM CHLORIDE 0.9% 10ML SYR (RAD ONLY) 10 ML IV (10:29)
[2025-02-02] MEDS: 0.9 % SODIUM CHLORIDE 50 ML VIAL IV (10:29)
[2025-02-02] MEDS: IOPAMIDOL-370 (76%);100ML BOTTLE 100 ML IV (10:29)
--- NOTE | 2025-02-02 10:30 | CT_ITS ---
FINAL REPORT TECHNIQUE: The patient was injected with IV contrast. Axial images were obtained through the chest in a PE protocol. 3-D reconstruction images were also performed. Individualized dose reduction techniques using automated exposure control or adjustment of the MA and/or KV according to patient's size were employed. CLINICAL HISTORY: ascending aorta dilatation COMPARISON: None FINDINGS: Mediastinal vasculature is adequately opacified. No pulmonary artery filling defects are identified to suggest PE. The ascending aorta is normal in size, measuring 3.5 cm in diameter. There is no aortic dissection. There is mural thrombus in the lateral aspect of the descending thoracic aorta. There is no axillary adenopathy. There is no hilar or mediastinal adenopathy. The heart size is normal. There is no pericardial or pleural effusion. Limited images of the upper abdomen demonstrate moderate fatty infiltration of the liver and pancreas. No suspicious infiltrate or nodule is identified. IMPRESSION: The ascending thoracic aorta is normal in size without evidence of dissection. There is a small amount of mural thrombus present in the lateral aspect of the descending thoracic aorta. Reviewed, Interpreted and Dictated by Guzman Lowe MD Transcribed by Idalia Franco Authenticated and [facility]
== END 2025-02-02 23:59 | disposition home or self-care (01) ==
LOC: RAD 09:54
PROVIDERS: PCP Nurse Practitioner Family; Visit Provider Nurse Practitioner
DX: Z01.810 Encounter for preprocedural cardiovascular examination (principal); I74.11 Embolism and thrombosis of thoracic aorta; R93.1 Abnormal findings on diagnostic imaging of heart and coronary circulation; R53.83 Other fatigue; R07.89 Other chest pain
CPT/HCPCS: 71275; Q9967

== ENCOUNTER 2025-03-24 11:42 | Outpatient (CLI) | payer MEDICARE, SELFPAY ==
[2025-03-24 11:48] VITALS: BMI 30.7
[2025-03-24 12:15] VITALS: BP 154/87; PULSE 62; RESP 18; O2SAT 97
[2025-03-24 12:19] LABS: Anion Gap 9.9 mEq/L (5-15); Blood Urea Nitrogen 11 mg/dl (7-17); Calcium 9.4 mg/dl (8.4-10.2); Carbon Dioxide 31 mmol/L (22.0-30.0); Chloride 101 mmol/L (98-107); Creatinine Clearance Estimated 67 mL/min (50-200); Creatinine,Serum 0.70 mg/dl (0.52-1.04); Estimated Glomerular Filt Rate 83 ml/min (>60); GFR (African American) 100 ML/MIN (>60); Glucose 84 mg/dl (74-100); Potassium 3.9 mmoL/L (3.5-5.1); Sodium 138 mmol/L (136-145)
[2025-03-24 12:45] VITALS: BP 178/92; PULSE 66; RESP 16; O2SAT 95
[2025-03-24 12:48] VITALS: BP 149/98; PULSE 58; RESP 16; O2SAT 95
[2025-03-24 12:51] VITALS: BP 146/84; PULSE 64; RESP 18; O2SAT 94
--- NOTE | 2025-03-24 13:00 | CT_ITS ---
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 A noncontrast coronary calcium scan was performed. A CT attenuation threshold of 130 Hounsfield units (HU) was used for the detection of calcium in contiguous voxels of 1 sq mm in area to be counted as individual lesions. Bolus tracking in the ascending aorta with a threshold of 180 HU was performed. Immediately afterwards, ECG synchronized cardiac CT was then performed from the cardiac base to apex using retrospective gating with ECG tube current modulation. A total of 85 mL of Isovue 370 mg/mL contrast medium was administered at 5 mL/sec followed by a saline flush using a biphasic injection protocol. A tube voltage of 120 KVp was used. The average heart rate at the time of acquisition was 62 bpm and regular. Image Reconstruction Transaxial images were reconstructed at 0.67 mm slide thickness. Data was reviewed interactively on an advanced workstation capable of 2 and 3-dimensional displays in all conventional reconstruction formats, including multiplanar reformations, maximum intensity projections, curved multiplanar reformations, and volume rendered reconstructions. When applicable, selected routine images describing the relevant coronary anatomy and pathology were saved and sent to PACS. Complications None Technical Quality Overall image quality was fair. The proximal and mid RCA segments are difficult to visualize in the setting of significant motion. Coronary artery opacification was adequate. Total DLP (Dose-Length Product) is 1585.2 mGy-cm. The reported value represents the total of one or more individual components during the CT acquisition of this date and at this time, and as such, the same value may appear in more than one CT report depending on the interpreting/reporting physicians. COMPARISON None FINDINGS CT Coronary Calcium Scoring LMA (Left Main Artery) = 0 LAD (Left Anterior Descending) = 174 LCX (Left Coronary Circumflex) = 25 RCA (Right Coronary Artery) = 100 Total Calcium Score = 299 using the AJ-130 method. The observed calcium score of 299 is at 86th percentile for subjects of the same age, sex, and race/ethnicity. The interpretation of the calcium heart score is based on the following continuum*: 0 = no calcified plaque detected (risk of coronary artery disease is very low ??? less than 5%) 1-10 = calcium detected in extremely minimal levels (risk of coronary diseases is still low ??? less than 10%) 11-100 = mild levels of plaque detected with certainty (mild or minimal narrowing of heart arteries is likely) 101-400 = definite,at least moderate levels of plaque detected (relatively high risk of a heart attack within 3-5 years) >401-999 = extensive levels of plaque detected (high risk of heart attack, high levels of vascular disease are present, high likelihood of at least one significant coronary narrowing) *The calcium heart score quantifies the burden of coronary calcification/plaque in the coronary arteries. The calcium heart score is not able to evaluate the presence or burden of non-calcified (i.e. soft) plaque. There is also mild calcification in ascending thoracic aorta. Coronary CT Angiography The coronary arterial system is right dominant. Quantitative Stenosis Grading: Left Main (LM): The left main originates normally from the left sinus of Valsalva. The LM bifurcates into the left anterior descending artery and left circumflex artery. The LM is patent with no evidence of atherosclerosis. Left Anterior Descending (LAD) and Diagonal Branches: The LAD gives off 2 diagonal branch(es). There is mixed calcified/noncalcified plaque in the proximal and mid LAD segments with up to 50 to 70% luminal stenosis. There is no evidence of LAD-myocardial bridge. Left Circumflex (LCX) and Obtuse Marginals (OM): The LCX gives off 1 Obtuse Marginal (OM) branch(es). There is mixed calcified/noncalcified plaque in the proximal and mid LCx segments with up to 25-49% luminal stenosis. Right Coronary Artery (RCA): The RCA originates normally from the right sinus of Valsalva. The RCA gives off a posterior descending artery (PDA) and posterolateral (PL) branches. The RCA is difficult to visualize due to significant motion. There is mixed calcified/noncalcified plaque in the proximal and mid RCA segments with up to 50 to 70% luminal stenosis. Non-Coronary Cardiac Findings: Analysis of the left ventricular (LV) structure and function was performed after 3-D reconstruction of the LV from axial images, with user-corrected automatic contouring for assessment of LV volumes and user-defined reconstruction from oblique planes for measurement of 3-D cardiac structure and function. -The left ventricle systolic function is normal. -There is no left atrial appendage filling defect. Two right pulmonary veins and two left pulmonary veins drain normally into the left atrium. -No pericardial thickening or calcification. -Central and branch pulmonary arteries in the [id number] are unremarkable. -Thoracic aorta within the visualized thoracic aortic-branches in the [id number] is unremarkable. Extracardiac Structures No significant extra-cardiac findings. Note, however, that this study is focused on the cardiac findings. IMPRESSION -Overall image quality was fair. The proximal and mid RCA segments are difficult to visualize in the setting of significant motion. -Presence of coronary calcification with an Agatston score = 299 using the AJ-130 method. -The observed calcium score of 299 is at 86th percentile for subjects of the same age, sex, and race/ethnicity. - Presence of multivessel atherosclerotic coronary disease with possible evidence of significant flow-limiting atherosclerosis of the coronary arteries. -CAD-RADS 3. Management recommendations per ACC/AHA guidelines*, as clinically appropriate. *Recommendations: CAD RADS 0: Reassurance. Consider non-atherosclerotic causes of chest pain. CAD RADS 1: Consider non-atherosclerotic causes of chest pain. Consider preventive therapy and risk factor modification. CAD RADS 2: Consider non-atherosclerotic causes of chest pain. Consider preventive therapy and risk factor modification, particularly for patients with nonobstructive plaque in multiple segments. CAD RADS 3: Consider further functional testing. Consider symptom-guided anti-ischemic and preventive pharmacotherapy as well as risk factor modification per published guideline statements. CAD RADS 4A: Consider further functional testing or invasive coronary angiography with revascularization per published guideline statements. Consider symptom-guided anti-ischemic and preventive pharmacotherapy as well as risk factor modification per published guideline statements. CAD RADS 4B: Invasive coronary angiography recommended with revascularization per published guideline statements. Consider symptom-guided anti-ischemic and preventive pharmacotherapy as well as risk factor modification per published guideline statements. CAD RADS 5: Consider invasive angiography and/or viability assessment with revascularization per published guideline statements. Consider symptom-guided anti-ischemic and preventive pharmacotherapy as well as risk factor modification per published guideline statements. CRITICAL RESULT None COMMUNICATION Per this written report The coronary and cardiac findings of this CCTA were reviewed, reported, and signed by Mane Cooney MD ([employer]) Conclusion Electronically signed by : Edna Cooney MD 03/24/2025 13:26:53
[2025-03-24] MEDS: SODIUM CHLORIDE 0.9% 10ML SYR (RAD ONLY) 10 ML IV (13:06)
[2025-03-24] MEDS: 0.9 % SODIUM CHLORIDE 50 ML VIAL IV (13:06)
[2025-03-24] MEDS: IOPAMIDOL-370 (76%);100ML BOTTLE 85 ML IV (13:06)
== END 2025-03-24 13:00 | disposition home or self-care (01) ==
LOC: RAD 11:42
PROVIDERS: PCP Nurse Practitioner Family; Visit Provider Nurse Practitioner Family
DX: I25.10 Atherosclerotic heart disease of native coronary artery without angina pectoris (principal); I77.810 Thoracic aortic ectasia; I74.19 Embolism and thrombosis of other parts of aorta; I10 Essential (primary) hypertension; R93.1 Abnormal findings on diagnostic imaging of heart and coronary circulation
CPT/HCPCS: 75574; 80048; Q9967

== ENCOUNTER 2025-04-18 10:45 | Day surgery (SDC) | payer MEDICARE, SELFPAY ==
[2025-04-18] VITALS (12 sets, daily range): BP systolic 141–193; BP diastolic 70–108; PULSE 52–65; RESP 18–20; TEMP 36.6; O2SAT 92–99; BMI 30.4
--- NOTE | 2025-04-18 06:59 | IR_ITS ---
APPROVED REPORT Patient Location: Outpatient PROCEDURES Left heart catheterization Left ventriculogram Selective coronary angiogram INDICATION Preoperative evaluation, Abnormal CCTA, Abnormal Myoview, Informed consent was obtained prior to the procedure. COMPLICATIONS NONE Estimated Blood Loss: LESS THAN 10 ML TECHNIQUE One percent lidocaine used to anesthetize the right anterior aspect of the wrist. The right radial artery was accessed via the Seldinger technique. A 6 Portuguese sheath was placed in the right radial artery. 2.5 mg of Verapamil, 800 mcg of nitroglycerin, 1mg Lidocaine and 5000 U Heparin were given through the arterial sheath. The JL3 catheter was also used to perform left heart catheterization, left ventriculogram and selective coronary angiogram. At the end of the procedure the sheath was removed good hemostasis was achieved using Traclet band, patient was transferred to the postop holding area in stable condition. ANGIOGRAPHIC RESULTS The left main artery Normal The left anterior descending artery Mild proximal mid vessel 10% luminal regularities The circumflex artery Large dominant with mild 10% luminal regularities The right coronary artery Nondominant proximally occluded with the distal vessel filling via right to right Kugel collaterals as well as kwwr-[id number] collaterals from the LAD [place] ventriculogram reveals Normal 65% The left ventricular end-diastolic pressure 15 mmHg IMPRESSION Chronically occluded nondominant right coronary artery which fills via [id number]-[id number] collaterals and right to right collaterals Normal ejection fraction Normal LVEDP PLAN 1. Risk factor modification 2. Medical management for coronary disease 3. Patient is a low and acceptable risk to proceed with elective surgery Electronically signed by : John Johnson MD 04/18/2025 11:58:57
[2025-04-18 11:06] LABS: Hematocrit 40.1 % (37.0-47.0); Hemoglobin 14.0 g/dL (12.2-16.2); Immature Granulocytes % 0.3 %; Mean Corpuscular HGB Conc 34.9 g/dL (31.8-35.4); Mean Corpuscular Hemoglobin 31.7 pg (27.0-31.2); Mean Corpuscular Volume 90.9 fl (81-99); Nucleated Red Blood Cells % 0 %; Platelet Count 280 K/mm3 (142-424); Red Blood Count 4.41 M/mm3 (4.20-5.40); Red Cell Distribution Width-SD 40.5 fL; White Blood Count 6.6 K/mm3 (4.8-10.8)
[2025-04-18 11:24] LABS: Anion Gap 10.2 mEq/L (5-15); Blood Urea Nitrogen 12 mg/dl (7-17); Calcium 9.3 mg/dl (8.4-10.2); Carbon Dioxide 30 mmol/L (22.0-30.0); Chloride 104 mmol/L (98-107); Creatinine Clearance Estimated 66 mL/min (50-200); Creatinine,Serum 0.70 mg/dl (0.52-1.04); Estimated Glomerular Filt Rate 83 ml/min (>60); GFR (African American) 100 ML/MIN (>60); Glucose 114 mg/dl (74-100); Potassium 4.2 mmoL/L (3.5-5.1); Sodium 140 mmol/L (136-145)
[2025-04-18] MEDS: HEPARIN 1,000 UNITS/500ML NS (CATH LAB) 3000 UNIT IV (11:32)
[2025-04-18] MEDS: HEPARIN 1,000 UNITS/ML 10ML VIAL (CATH LAB) 5000 UNIT IV (11:32)
[2025-04-18] MEDS: VERAPAMIL 2.5MG/ML 2ML VIAL 2.5 MG IV (11:32)
[2025-04-18] MEDS: LIDOCAINE 1% 10ML MDV 10 ML IJ (11:33)
[2025-04-18] MEDS: MIDAZOLAM HCL 1MG/ML 5ML VIAL 1 MG IV (11:33)
[2025-04-18] MEDS: 0.9 % SODIUM CHLORIDE 500 ML 25 ML IV (11:33)
[2025-04-18] MEDS: NITROGLYCERIN 800MCG/8ML SYR (CATH LAB) 800 MCG IA (11:33)
[2025-04-18] MEDS: FENTANYL 100MCG/2ML VIAL 50 MCG IV (11:34)
[2025-04-18] MEDS: IOPAMIDOL-370 (76%);100ML BOTTLE 50 ML IV (13:54)
== END 2025-04-18 14:41 | disposition home or self-care (01) ==
LOC: CATHLAB 10:46
PROVIDERS: PCP Nurse Practitioner Family; Visit Provider Internal Medicine
PROC: 4A023N7 Measurement of Cardiac Sampling and Pressure, Left Heart, Percutaneous Approach (ICD-10-PCS; CPT 93452; principal; 2025-04-18 10:45)
DX: Z01.818 Encounter for other preprocedural examination (principal); I25.10 Atherosclerotic heart disease of native coronary artery without angina pectoris; R93.1 Abnormal findings on diagnostic imaging of heart and coronary circulation; R07.89 Other chest pain; I10 Essential (primary) hypertension; R53.83 Other fatigue; R00.2 Palpitations; E78.49 Other hyperlipidemia; I77.810 Thoracic aortic ectasia; I74.10 Embolism and thrombosis of unspecified parts of aorta; Z87.891 Personal history of nicotine dependence; Z79.01 Long term (current) use of anticoagulants; Z79.890 Hormone replacement therapy; Z79.899 Other long term (current) drug therapy; Z88.2 Allergy status to sulfonamides; Z82.49 Family history of ischemic heart disease and other diseases of the circulatory system
CPT/HCPCS: 80048; 85025; 93458; 99152; C1725; C1769; J1200; J1644; J2003; J3010; J7040; Q9967

== ENCOUNTER 2025-04-19 11:17 | Outpatient (CLI) | payer MEDICARE, SELFPAY ==
--- NOTE | 2025-04-19 11:15 | CA_ITS ---
FINAL REPORT TECHNIQUE: Limited ultrasound imaging of the right wrist was obtained. CLINICAL HISTORY: SWELLING RIGHT WRIST,PT HAD HEART CATH WITH RIGHT RADIAL ACCESS ON 04/18/25 FINDINGS: There is no evidence of pseudoaneurysm, AV fistula or thrombus. IMPRESSION: Unremarkable exam. Reviewed, Interpreted and Dictated by Mehdi Li MD Transcribed by Ana Mcgee Authenticated and [facility]
== END 2025-04-19 23:59 | disposition home or self-care (01) ==
LOC: RT 11:18
PROVIDERS: PCP Nurse Practitioner Family; Visit Provider Nurse Practitioner
DX: I74.2 Embolism and thrombosis of arteries of the upper extremities (principal); M25.431 Effusion, right wrist
CPT/HCPCS: 93931

== ENCOUNTER 2025-05-04 12:42 | Outpatient (CLI) | payer MEDICARE, SELFPAY ==
--- NOTE | 2025-05-04 12:44 | US_ITS ---
FINAL REPORT CLINICAL HISTORY: CAD,HTN,EX SMOKER,FEET PAIN COMPARISON: None FINDINGS: ANKLE-BRACHIAL PRESSURE INDICES Pressure indices are as follows: RIGHT LOWER EXTREMITY: Ankle-brachial pressure index: 1.1 Comments: Normal LEFT LOWER EXTREMITY: Ankle-brachial pressure index: 1.1 Comments: Normal CONCLUSION: No evidence of significant obstructive peripheral vascular disease of the lower extremities Reviewed, Interpreted and Dictated by Guzman Lowe MD Transcribed by Idalia Franco Authenticated and . [facility]
== END 2025-05-04 23:59 | disposition home or self-care (01) ==
LOC: RT 12:42
PROVIDERS: PCP Nurse Practitioner Family; Visit Provider Nurse Practitioner Family
DX: I25.10 Atherosclerotic heart disease of native coronary artery without angina pectoris (principal); I10 Essential (primary) hypertension; F17.200 Nicotine dependence, unspecified, uncomplicated; M79.672 Pain in left foot; M79.671 Pain in right foot
CPT/HCPCS: 93923